=== PATIENT | female | born 1940 | race Caucasian/White ===

== ENCOUNTER 2016-05-13 07:16 | Emergency (ER) ==
[2016-05-13 07:33] VITALS: BP 149/94; TEMP 100.4; BMI 43.9
--- NOTE | 2016-05-13 07:38 | ED.PDOC ---
General ED Provider: Dr. FLAKITO SANTANA JR Chief Complaint: Sore Throat Stated Complaint: Sore throat x 3 days. Worse last noc. Feels "shooting pains" in throat. Hurts to swallow. Minor cough. Low grade fever. Pt states was unaware of temp. Has tried salt water gargles, cloraseptic throat spray, et Robitussin cough med.[ End ]100.4 75 20 93% 149/94 02/01[ End ] Time Seen by Physician: 07:43 Mode of Arrival: Walk-In Information Source: Patient Exam Limitations: No limitations Primary Care Provider: DUNG GRIFFIN Nursing and Triage Documentation Reviewed and Agree: No Review of Systems - Review Of Systems Constitutional: Reports: No symptoms Eyes: Reports: No symptoms Ears, Nose, Mouth, Throat: Reports: Throat pain Respiratory: Reports: No symptoms Cardiac: Reports: No symptoms GI: Reports: No symptoms : Reports: No symptoms Musculoskeletal: Reports: No symptoms Skin: Reports: No symptoms Neurological: Reports: No symptoms Endocrine: Reports: No symptoms Hematologic/Lymphatic: Reports: No symptoms All Other Systems: Other Past Medical History - Past Medical History Endocrine: Reports: Hypothyroid, Dyslipidemia Cardiovascular: Reports: CAD, Hypertension, DVT (bilat [id number] tubovarian excision 1970s again with hysterectomy) Respiratory: Reports: PE (1967) Hematological: Reports: None Gastrointestinal: Reports: None Genitourinary: Reports: None Neuro/Psych: Reports: None Musculoskeletal: Reports: Arthritis Cancer: Reports: None Last Menstrual Period: hysterectomy Other Pertinent Past Medical History: cataract surg, bilat eyes, Benign tumor removed from back - Surgical History General Surgical History: Reports: Hysterectomy, Appendectomy, CABG, Orthopedic ( bilat knee surg, ), Back Surgery (C-spine surg , Back surg,), Other (Sinus surg) - Family History Family History: Reports: Unknown - Social History Smoking Status: Never smoker Hx Substance Use: No Alcohol Screening: None Physical Exam - Physical Exam Appearance: Well-appearing, Thin Pain Distress: Moderate Eyes: SYDNI, EOMI, Conjunctiva clear ENT: Ears normal, Nose normal, Oropharynx normal Neck: Supple Respiratory: Airway patent, Breath sounds clear, Breath sounds equal, Respirations nonlabored Cardiovascular: RRR, Pulses normal, No rub, No murmur Neurological: Sensation intact, Motor intact, Reflexes intact, Cranial nerves intact, Alert, Oriented Psychiatric: Affect appropriate, Mood appropriate Critical Care Note - Critical Care Note Total Time (mins): 0 Course - Course Vital Signs: Temp Pulse Resp BP Pulse Ox 05/13/16 07:17 100.4 F H 75 20 149/94 H 93 L Departure - Departure Time of Disposition: 09:08 Disposition: HOME SELF-CARE Discharge Problem: Sore throat symptom Instructions: Pharyngitis (ED) Condition: Good Pt referred to PMD for follow-up: Yes Additional Instructions: Please call your Family Physician as soon as possible to schedule a follow-up appointment. Please follow-up with Dr. Griffin in 1-5 days. Tylenol Motrin Maalox and Chloraseptic as needed for pain Solumedrol was given in ER GI cocktail was given in ER push fluids Keflex only if strep is positive Prescriptions: Cephalexin [Keflex] 500 mg PO QID #40 capsule Allergies/Adverse Reactions: Allergies Iodinated Contrast Media - Oral and [Iodinated Contrast Media - IV Dye] Adverse Reaction (Unverified 09/25/13 13:51) iodine Adverse Reaction (Unverified 09/25/13 13:51) Penicillins Adverse Reaction (Unverified 09/25/13 13:51) povidone-iodine [From Betadine] Adverse Reaction (Unverified 09/25/13 13:51) soap [From Betadine] Adverse Reaction (Unverified 09/25/13 13:51) Home Medications: Ambulatory Orders Allopurinol 1 tab PO DAILY 09/25/13 Atorvastatin Calcium [Lipitor] 1 tab PO DAILY 09/25/13 Colchicine [Colcrys] 1 tab PO TID PRN 09/25/13 Furosemide [Lasix] 1 tab PO DAILY 09/25/13 Gabapentin 1 cap PO Q6-8H 09/25/13 Hydrocodone/Acetaminophen [Hydrocodon-Acetaminoph 7.5-325] 1 tab PO Q6-8H PRN Metoprolol Tartrate [Lopressor] 1 tab PO DAILY 09/25/13 Nitroglycerin [Nitrostat] 1 tab SL PRN PRN 09/25/13 Polyethylene Glycol 3350 [Miralax] 1 cap PO DAILY PRN 09/25/13 Potassium Chloride [K-Dur] 1 tab PO DAILY 09/25/13 Sennosides/Docusate Sodium [Bianca-Colace Tablet] 1 tab PO DAILY 09/25/13 Aspirin [Aspirin EC] 81 mg PO DAILYWM 05/13/16 Cephalexin [Keflex] 500 mg PO QID #40 capsule 05/13/16 Levothyroxine Sodium [Synthroid] 50 mcg PO QDAC 05/13/16 Loratadine 10 mg PO DAILY 05/13/16 Ondansetron HCl [Zofran Tab] 4 mg PO Q8H PRN 05/13/16
[2016-05-13] MEDS ORDERED: SOLU-MEDROL 125 MG IM STA (07:43)
[2016-05-13] MEDS ORDERED: GI COCKTAIL PO STA (07:48)
[2016-05-13 08:17] LABS: FLU INTERNAL QC INTERNAL QC VALID; RAPID FLU A NEGATIVE (NEGATIVE); RAPID FLU B NEGATIVE (NEGATIVE)
== END 2016-05-13 09:26 | disposition home or self-care (01) ==
LOC: ED 07:16
DX: J02.9 Acute pharyngitis, unspecified (principal); R50.9 Fever, unspecified; R05 Cough; Z79.899 Other long term (current) drug therapy
CPT/HCPCS: 87651; 87804; 87880; 96372; 99283

== ENCOUNTER 2016-06-04 10:59 | Outpatient (CLI) ==
--- NOTE | 2016-06-04 13:05 | US ---
EXAM: Left lower extremity venous doppler. HISTORY: Left leg pain and swelling. COMPARISON: None available. TECHNIQUE: Multiple grayscale and color doppler images were obtained. FINDINGS: There is normal flow, compressibility and augmentation of flow within the left common fem oral, greater saphenous, profunda, femoral, popliteal, posterior tibial, anterior tibial and peronea l veins. IMPRESSION: No evidence for left lower extremity deep vein thrombosis at the levels examined.
--- NOTE | 2016-06-04 13:11 | DI ---
Examination: Three radiographic images of the left lower extremity. Comparison: Ankle radiographs performed on the same day. Reason for study: Left leg pain and swelling. FINDINGS: No acute fracture or malalignment. Operative changes are seen after left total knee arth roplasty. No abnormal soft tissue calcifications are seen within the joint space. Impression: 1. No acute fracture or malalignment of the left tibia and fibula. 2. No obvious periprosthetic fracture or hardware complication in the left knee.
--- NOTE | 2016-06-04 13:13 | DI ---
EXAM: Left ankle. Three-view HISTORY: Left leg pain and swelling COMPARISON: None FINDINGS: No acute fracture or dislocation. Well marginated ossification near the medial malleolus , may be due to old trauma or ossification center. Ankle mortise symmetric. Small posterior and pl gina calcaneal spurs. Mild to moderate osteoarthritis of the midfoot. Soft tissue swelling suggest ed about the ankle. IMPERSSION: 1. No acute fracture or dislocation. 2. Mild moderate osteoarthritis midfoot. 3. Calcaneal spurs. 4. Soft tissue swelling suggested about the ankle.
== END 2016-06-04 11:00 | disposition home or self-care (01) ==
LOC: RAD 10:59
PROVIDERS: ATTEND Emergency Medicine
DX: M79.605 Pain in left leg (principal); M79.672 Pain in left foot; M79.89 Other specified soft tissue disorders

== ENCOUNTER 2016-06-10 07:48 | Outpatient (CLI) ==
--- NOTE | 2016-06-11 09:20 | MAMMO ---
EXAM: Digital screening mammogram HISTORY: Screening mammogram COMPARISON: Mammogram 02/14/2015 and 02/04/2015 and mammogram 06/12/2012 FINDINGS: Bilateral CC and MLO views of the breasts were performed digitally and demonstrate scatte red fibroglandular breast density (25 - 50%). Parenchyma is increased in density in the left lateral breast which is unchanged. Nodular breast parenchyma is stable when compared to 2015. Left breast biopsy clip is stable. Stable bilateral calcifications are present. There is no abnormal nodule or calcification. Axillary nodes are unchanged. There is no significant interval change. IMPRESSION: No new or suspicious nodule or calcification RECOMMENDATION: Annual screening mammogram BIRADS category II: Benign findings
== END 2016-06-10 07:49 | disposition home or self-care (01) ==
LOC: RAD 07:48
PROVIDERS: ATTEND Internal Medicine
DX: Z12.31 Encounter for screening mammogram for malignant neoplasm of breast (principal)

== ENCOUNTER 2016-11-12 11:28 | Inpatient (IN) | payer OTHER ==
[2016-11-12] MEDS ORDERED: MORPHINE 4 MG/ML SYRINGE IVP PRN (11:41)
[2016-11-12] MEDS ORDERED: NITROSTAT SL PRN ×2 (11:41→12:07)
[2016-11-12] MEDS ORDERED: VISTARIL INJ IM PRN (11:41)
[2016-11-12] MEDS ORDERED: TYLENOL PO PRN (11:41)
[2016-11-12] MEDS ORDERED: ATROPINE SULFATE PFS IVP PRN (11:41)
[2016-11-12 12:00] VITALS: BMI 44.9
[2016-11-12] MEDS ORDERED: MIRALAX PO PRN (12:07)
[2016-11-12] MEDS ORDERED: ZOFRAN TAB PO PRN ×2 (12:07→12:59)
--- NOTE | 2016-11-12 12:34 | DI ---
EXAM: Single frontal view of the chest HISTORY: Pneumonitis. COMPARISON: Chest x-ray 07/27 FINDINGS: Cardiomediastinal silhouette is unchanged with intact sternotomy wires. There is no pneum othorax or pleural effusion. There is no consolidation, nodule or mass. The osseous structures are unremarkable. Surgical clips are noted in the left upper chest. IMPRESSION: No acute cardiopulmonary process.
[2016-11-12 12:39] LABS: BASOPHILS % (AUTO) 0.4 % (0.0-3.0); EOSINOPHILS # (AUTO) 0.2 K/ul (0.0-0.7); EOSINOPHILS % (AUTO) 1.7 % (0.0-7.0); HEMATOCRIT 37.4 % (37.0-47.0); HEMOGLOBIN 12.7 g/dl (12.0-16.0); IMMATURE GRANULOCYTE % (AUTO) 1.6 % (0.0-5.0); LYMPHOCYTES # (AUTO) 1.8 K/uL (0.60-3.4); LYMPHOCYTES % (AUTO) 16.2 (10.0-50.0); MEAN CORPUSCULAR HEMOGLOBIN 30.5 pg (27.0-31.0); MEAN CORPUSCULAR VOLUME 89.7 fl (81.0-99.0); MONOCYTES # (AUTO) 0.5 K/uL (0.4-2.0); MONOCYTES % (AUTO) 4.5 (0-10); NEUTROPHILS # (AUTO) 8.3 K/ul (2.0-6.9); NEUTROPHILS % (AUTO) 75.6; PLATELET COUNT 188 10^3/uL (140-440); RED BLOOD COUNT 4.17 10^6/ul (4.20-5.40); WHITE BLOOD COUNT 10.92 K/ul (4.6-10.2)
[2016-11-12 13:19] LABS: ALANINE AMINOTRANSFERASE 20 U/L (12-78); ALBUMIN 3.9 g/dL (3.4-5.0); ALBUMIN/GLOBULIN RATIO 1.15; ALKALINE PHOSPHATASE 65 U/L (53-141); ANION GAP 20.8; ASPARTATE AMINO TRANSFERASE 15 U/L (15-37); BILIRUBIN,TOTAL 0.52 mg/dL (0.00-1.20); BLOOD UREA NITROGEN 17 mg/dL (7-18); BUN/CREATININE RATIO 21.79; CALCIUM 9.1 mg/dL (8.2-10.2); CARBON DIOXIDE 25 mmol/L (23-31); CHLORIDE 103 mmol/L (98-107); CREATINE KINASE 83 U/L; CREATININE 0.78 mg/dL (0.60-1.30); GLUCOSE 111 mg/dL (82-115); MYOGLOBIN 47 ng/ml; POTASSIUM 3.8 mmol/L (3.5-5.10); SODIUM 145 mmol/L (136-145); TOTAL PROTEIN 7.3 g/dL (5.8-8.1)
[2016-11-12] MEDS: XOPENEX 1.25 MG NEB SCH ×3 (13:37→23:16)
[2016-11-12] MEDS: LEVAQUIN 500 MG in PREMIX 100 ML D5W 1 BAG IV SCH (13:39)
[2016-11-12] MEDS: SOLU-CORTEF 250 MG IVP SCH ×3 (13:39→20:50)
[2016-11-12] MEDS: NEURONTIN PO SCH ×2 (13:40→20:51)
--- NOTE | 2016-11-12 14:53 | HP ---
DATE OF SERVICE: 11/12/16 REASON FOR HOSPITALIZATION/HISTORY OF PRESENT ILLNESS: Had 2 cc Decadron on Tuesday. Started Prednisone, Levaquin and ProAir. No fever. Tired and short of breath. Treated on 10/28/16 and 11/10/16 with Antibiotics and steroids. REVIEW OF SYSTEMS: CONSTITUTIONAL: No fever, Fatigue. HEENT: Sinus drainage, no sore throat. RESPIRATORY: Cough with yellowish sputum, no congestion. CARDIOVASCULAR: No atypical chest pain for coronary artery disease. No angina , CHF symptoms, palpitations. Shortness of breath. GASTROINTESTINAL: No melena or abdominal pain. No GERD. GENITOURINARY: No hematuria, no prostatism, no polyuria. PRINCIPAL CYBER ENGINEER: No blackout, no dizziness, no headache, no double vision. MUSCULOSKELETAL: Osteoarthritis pain, no joint swelling. ENDOCRINE: No weight loss, no weight gain. SKIN: Not dry, no rash. PSYCHIATRIC: Not anxious, no depression, no suicidal thoughts, no homicidal thoughts. SOCIAL HISTORY: Marital Status: . Alcohol Usage: No . Tobacco Usage: No . Family History: Father -64 year old cancer lung, Mother 64 years old ALS and one brother. MEDICAL/SURGICAL HISTORY: CABGx3 07/31 Right and left knee 2001 Back surgery 2003 Hysterectomy Cervical surgery Sinus surgery x3 Carpel tunnel Bilateral TKR CABG's Anemia Gout Asthma Hypertension Dyslipidemia CAD DJD Spine Fibromyalgia Neuropathy MEDICATIONS: Bianca-colace two tablet PO QAM K-Dur 20 meq PO daily Miralax 1 cap PO daily PRN Nitroglycerin 1 tablet Sublingual PRN Lopressor 25mg PO daily Hydrocodone/Acetaminophen 7.5-325 PO Q 6-7 hours PRN Gabapentin 600mg four capsules PO bedtime Lasix 40mg PO daily Lipitor 40mg PO 1600 Allopurinol 100mg PO daily Loratadine 10mg PO 1600 Aspirin 81mg PO 1600 Zofran 4mg PO Q 8 hours PRN Synthroid 50mcg PO QDAC ALLERGIES: Iodine Penicillins Cymbalta PHYSICAL EXAMINATION: V/S: Temperature 97.7, blood pressure 130/78, pulse 68 and ox sat 93%. GENERAL APPEARANCE: Oriented times three. HEENT: Normal. NECK: No JVP, no bruits. RESPIRATORY: Decreased breath sounds, bilateral wheezing. CARDIOVASCULAR: S1, S2, no S3, no murmurs. No cyanosis, clubbing. No ascites. GI/ABDOMEN: No tenderness. Bowel sounds are active. EXTREMITIES: Trace edema, pulses +1, equal. PRINCIPAL CYBER ENGINEER: Deep tendon reflexes, sensory, motor and gait all normal. RECTAL: Colonoscopy Dr. Last 2013 EGD. /PELVIC: Dr. Briscoe/ 06/10/16 Dr. Goldstein . ASSESSMENT: 1. Acute bronchitis/pneumonitis 2. Anemia 3. History of gout 4. Neuropathy 5. Fibromyalgia 6. Bilateral TKR 7. CAD, 2007 CABG 8. Hypertension/LVH 9. Severe DJD Spine 10. Status post back surgery 2002 PLAN: 1. Admit regular 2. Diet as tolerated 3. Telemetry 4. EKG/ABG 5. BNP/ Oxygen 2 liters cannula 6. X-ray Chest today 7. CBC, CMP today and daily AM 8. TSH/ Urinalysis 9. Solu-Cortef 125mg IV PB Q 8 hours and one dose now. 10. IV Levaquin 500mg today and QAM 11. Sputum for culture 12. Blood culture x2 13. NEBS Xopenex four times a day 14. Phenergan with codeine two teaspoons PO four times a day PRN 15. Continue all home medications. TIME SPENT: More than 70 minutes. MTDD
[2016-11-12] MEDS ORDERED: NON-FORMULARY MEDICATION (Atorvastatin Calcium [Lipitor] 40 MG) PO SCH ×22 (16:00)
[2016-11-12] MEDS: LIPITOR PO SCH (16:10)
[2016-11-12] MEDS: ASPIRIN EC PO SCH (16:10)
[2016-11-12] MEDS: CLARITIN PO SCH (16:10)
[2016-11-12 19:08] LABS: BILIRUBIN,URINE Negative (NEGATIVE); KETONES,URINE Negative (NEGATIVE); LEUKOCYTE ESTERASE ,URINE Negative (NEGATIVE); NITRITE,URINE Negative (NEGATIVE); PH,URINE 8.5 (5-9); PROTEIN,URINE Negative (NEGATIVE); URINE, BLOOD Negative (NEGATIVE)
[2016-11-12 19:09] LABS: ADD URINE MICROSCOPIC NO
[2016-11-12 19:52] LABS: CREATINE KINASE 85 U/L; MYOGLOBIN 33 ng/ml
[2016-11-12] MEDS ORDERED: GABAPENTIN PO SCH (21:00)
[2016-11-12] MEDS ORDERED: LIDOCAINE 1% 20 ML MDV ONE (21:24)
--- NOTE | 2016-11-12 22:41 | ED.PDOC ---
Procedures - IV/Art Line Insertion Location: Rt wrist Invasive Line/IV Catheter Gauge: 22 Number of Attempts: 1 Blood Return Positive: Yes Invasive Line/IV Flushes Without Difficulty: Yes Conscious Sedation - Pre-op Assessment Weight: 245 lb 9 oz Surgical History: Appy, hysterectomy, PE, DVT bilat legs, C-spine surg, bilat knee surg, Sinus surg, Back surg, CABG, cataract surg, bilat eyes, Benign tumor removed from back - Medical History Past Medical History: Hypertension, Thyroid, High Lipids, Arthritis, CAD
[2016-11-13] MEDS: XOPENEX 1.25 MG NEB SCH ×4 (05:22→23:19)
[2016-11-13] MEDS: LASIX TAB PO SCH (05:38)
[2016-11-13] MEDS: SOLU-CORTEF 250 MG IVP SCH ×2 (05:39→13:06)
[2016-11-13] MEDS: SYNTHROID PO SCH (05:41)
[2016-11-13 06:51] LABS: BASOPHILS % (AUTO) 0.3 % (0.0-3.0); EOSINOPHILS % (AUTO) 0.2 % (0.0-7.0); HEMATOCRIT 38.4 % (37.0-47.0); HEMOGLOBIN 12.7 g/dl (12.0-16.0); IMMATURE GRANULOCYTE % (AUTO) 1.3 % (0.0-5.0); LYMPHOCYTES # (AUTO) 1.8 K/uL (0.60-3.4); MEAN CORPUSCULAR HGB CONC 33.1 (31.8-35.4); MEAN CORPUSCULAR VOLUME 90.8 fl (81.0-99.0); MONOCYTES # (AUTO) 0.6 K/uL (0.4-2.0); MONOCYTES % (AUTO) 4.7 (0-10); NEUTROPHILS # (AUTO) 9.3 K/ul (2.0-6.9); NEUTROPHILS % (AUTO) 78.5; PLATELET COUNT 164 10^3/uL (140-440); RED BLOOD COUNT 4.23 10^6/ul (4.20-5.40); WHITE BLOOD COUNT 11.81 K/ul (4.6-10.2)
[2016-11-13 07:11] LABS: ALBUMIN 3.9 g/dL (3.4-5.0); ALBUMIN/GLOBULIN RATIO 1.15; ANION GAP 20.5; BILIRUBIN,TOTAL 0.46 mg/dL (0.00-1.20); BUN/CREATININE RATIO 21.62; CALCIUM 8.9 mg/dL (8.2-10.2); CREATININE 0.74 mg/dL (0.60-1.30); POTASSIUM 3.5 mmol/L (3.5-5.10); TOTAL PROTEIN 7.3 g/dL (5.8-8.1)
[2016-11-13] MEDS ORDERED: ASPIRIN EC PO SCH (08:00)
[2016-11-13] MEDS: K-DUR PO SCH (08:45)
[2016-11-13] MEDS: NEURONTIN PO SCH ×2 (08:45→20:44)
[2016-11-13] MEDS: COLACE PO SCH (08:45)
[2016-11-13] MEDS: SENNA PO SCH (08:46)
[2016-11-13] MEDS: LOPRESSOR PO SCH (08:46)
[2016-11-13] MEDS: ZYLOPRIM PO SCH (08:46)
[2016-11-13] MEDS ORDERED: DOCUSATE SODIUM PO SCH (09:00)
[2016-11-13] MEDS ORDERED: SENNOSIDES PO SCH (09:00)
[2016-11-13] MEDS: NORCO 7.5-325 PO PRN ×3 (09:17→20:45)
[2016-11-13] MEDS: LEVAQUIN 500 MG in PREMIX 100 ML D5W 1 BAG IV SCH (09:18)
[2016-11-13] MEDS: LIPITOR PO SCH (15:25)
[2016-11-13] MEDS: ASPIRIN EC PO SCH (15:25)
[2016-11-13] MEDS: CLARITIN PO SCH (15:25)
--- NOTE | 2016-11-13 19:22 | ED.PDOC ---
Procedures - IV/Art Line Insertion Location: called in, nurse stated order had changed and will not need IV Conscious Sedation - Pre-op Assessment Weight: 245 lb 9 oz Surgical History: Appy, hysterectomy, PE, DVT bilat legs, C-spine surg, bilat knee surg, Sinus surg, Back surg, CABG, cataract surg, bilat eyes, Benign tumor removed from back - Medical History Past Medical History: Hypertension, Thyroid, High Lipids, Arthritis, CAD
[2016-11-13] MEDS: PREDNISONE PO SCH (19:35)
[2016-11-13] MEDS: PHENERGAN WITH CODEINE 6.25/10 MG/5 ML PO PRN (23:27)
[2016-11-14 05:01] LABS: BASOPHILS % (AUTO) 0.4 % (0.0-3.0); EOSINOPHILS # (AUTO) 0.1 K/ul (0.0-0.7); EOSINOPHILS % (AUTO) 0.5 % (0.0-7.0); HEMATOCRIT 36.3 % (37.0-47.0); IMMATURE GRANULOCYTE % (AUTO) 1.5 % (0.0-5.0); LYMPHOCYTES # (AUTO) 1.7 K/uL (0.60-3.4); LYMPHOCYTES % (AUTO) 16.2 (10.0-50.0); MEAN CORPUSCULAR HEMOGLOBIN 29.9 pg (27.0-31.0); MEAN CORPUSCULAR HGB CONC 33.1 (31.8-35.4); MEAN CORPUSCULAR VOLUME 90.5 fl (81.0-99.0); MONOCYTES # (AUTO) 0.7 K/uL (0.4-2.0); MONOCYTES % (AUTO) 6.6 (0-10); NEUTROPHILS # (AUTO) 8.1 K/ul (2.0-6.9); NEUTROPHILS % (AUTO) 74.8; PLATELET COUNT 146 10^3/uL (140-440); RED BLOOD COUNT 4.01 10^6/ul (4.20-5.40); WHITE BLOOD COUNT 10.76 K/ul (4.6-10.2)
[2016-11-14] MEDS: XOPENEX 1.25 MG NEB SCH ×4 (05:04→23:18)
[2016-11-14 05:23] LABS: ALBUMIN 3.5 g/dL (3.4-5.0); ALBUMIN/GLOBULIN RATIO 1.13; ANION GAP 18.7; BILIRUBIN,TOTAL 0.29 mg/dL (0.00-1.20); BUN/CREATININE RATIO 22.85; CALCIUM 8.8 mg/dL (8.2-10.2); CREATININE 0.7 mg/dL (0.60-1.30); POTASSIUM 3.7 mmol/L (3.5-5.10); TOTAL PROTEIN 6.6 g/dL (5.8-8.1)
[2016-11-14] MEDS: SYNTHROID PO SCH (05:33)
[2016-11-14] MEDS: LASIX TAB PO SCH (05:33)
[2016-11-14] MEDS: NORCO 7.5-325 PO PRN ×2 (06:06→15:40)
[2016-11-14] MEDS: ZYLOPRIM PO SCH (08:34)
[2016-11-14] MEDS: LEVAQUIN PO SCH (08:34)
[2016-11-14] MEDS: NEURONTIN PO SCH ×2 (08:34→20:26)
[2016-11-14] MEDS: K-DUR PO SCH (08:34)
[2016-11-14] MEDS: PREDNISONE PO SCH ×2 (08:34→17:01)
[2016-11-14] MEDS: COLACE PO SCH (08:35)
[2016-11-14] MEDS: SENNA PO SCH (08:35)
[2016-11-14] MEDS: LOPRESSOR PO SCH (08:35)
[2016-11-14] MEDS: LIPITOR PO SCH (15:48)
[2016-11-14] MEDS: CLARITIN PO SCH (15:48)
[2016-11-14] MEDS: ASPIRIN EC PO SCH (15:48)
[2016-11-15] MEDS: PHENERGAN WITH CODEINE 6.25/10 MG/5 ML PO PRN ×2 (00:02→07:37)
[2016-11-15] MEDS: NORCO 7.5-325 PO PRN ×2 (00:02→07:37)
[2016-11-15 05:31] VITALS: BP 154/85; TEMP 97.4
[2016-11-15] MEDS: XOPENEX 1.25 MG NEB SCH ×2 (05:38→11:15)
[2016-11-15] MEDS: LEVAQUIN PO SCH (05:40)
[2016-11-15] MEDS: SYNTHROID PO SCH (05:40)
[2016-11-15] MEDS: LASIX TAB PO SCH (05:40)
[2016-11-15 05:51] LABS: BASOPHILS # (AUTO) 0.1 K/uL (0-0.2); BASOPHILS % (AUTO) 0.7 % (0.0-3.0); EOSINOPHILS # (AUTO) 0.3 K/ul (0.0-0.7); EOSINOPHILS % (AUTO) 2.6 % (0.0-7.0); HEMATOCRIT 38.4 % (37.0-47.0); HEMOGLOBIN 12.4 g/dl (12.0-16.0); IMMATURE GRANULOCYTE % (AUTO) 1.8 % (0.0-5.0); LYMPHOCYTES # (AUTO) 2.3 K/uL (0.60-3.4); LYMPHOCYTES % (AUTO) 22.7 (10.0-50.0); MEAN CORPUSCULAR HEMOGLOBIN 29.5 pg (27.0-31.0); MEAN CORPUSCULAR HGB CONC 32.3 (31.8-35.4); MEAN CORPUSCULAR VOLUME 91.4 fl (81.0-99.0); MONOCYTES # (AUTO) 0.7 K/uL (0.4-2.0); NEUTROPHILS # (AUTO) 6.6 K/ul (2.0-6.9); NEUTROPHILS % (AUTO) 65.2; PLATELET COUNT 159 10^3/uL (140-440); WHITE BLOOD COUNT 10.15 K/ul (4.6-10.2)
[2016-11-15 06:13] LABS: ALBUMIN 3.5 g/dL (3.4-5.0); ALBUMIN/GLOBULIN RATIO 1.21; ANION GAP 17.9; BILIRUBIN,TOTAL 0.44 mg/dL (0.00-1.20); BUN/CREATININE RATIO 27.94; CALCIUM 8.9 mg/dL (8.2-10.2); CREATININE 0.68 mg/dL (0.60-1.30); POTASSIUM 3.9 mmol/L (3.5-5.10); TOTAL PROTEIN 6.4 g/dL (5.8-8.1)
[2016-11-15] MEDS: SENNA PO SCH (08:57)
[2016-11-15] MEDS: COLACE PO SCH (08:57)
[2016-11-15] MEDS: PREDNISONE PO SCH (08:57)
[2016-11-15] MEDS: NEURONTIN PO SCH (08:57)
[2016-11-15] MEDS: ZYLOPRIM PO SCH (08:57)
[2016-11-15] MEDS: K-DUR PO SCH (08:58)
[2016-11-15] MEDS: LOPRESSOR PO SCH (08:58)
[2016-11-15] MEDS ORDERED: MUCINEX PO SCH (09:30)
--- NOTE | 2016-11-15 09:40 | PCM.PROG ---
Attending Provider: ATTENDING PROVIDER: Dr. DUNG GRIFFIN DATE OF SERVICE: 11/15/16 SUBJECTIVE: This 76 year old WHITE/ F was hospitalized 11/12/16. The patient was seen with Nurse Practitioner, Erin. The patient is up and about ready to go home. She is feeling better. REVIEW OF SYSTEMS: CONSTITUTIONAL: No night sweats. No fatigue, malaise, lethargy. No fever or chills. HEENT: Eyes: No visual changes. No eye pain. No eye discharge. ENT: No runny nose. No epistaxis. No sinus pain. No odynophagia. No congestion. RESPIRATORY: Cough, no congestion. No hemoptysis. CARDIOVASCULAR: No angina symptoms. No CHF symptoms. No atypical chest pain for CAD. No palpitations. No shortness of breath. GASTROINTESTINAL: No abdominal pain. No nausea or vomiting. No diarrhea or constipation. No hematemesis. No hematochezia. GENITOURINARY: No urgency. No frequency. No dysuria. No hematuria. No obstructive symptoms. No discharge. No pain. No significant abnormal bleeding. MUSCULOSKELETAL: No musculoskeletal pain; no joint swelling. NEUROLOGICAL: Awake, alert, oriented to time, place and person. No headache. No neck pain. No syncope. No seizures. No dizziness. PSYCHIATRIC: Not anxious. No depression. No suicidal thoughts. No homicidal thoughts. SKIN: No rash. No lesions. No wounds. ENDOCRINE: No unexplained weight loss. No weight gain. HEMATOLOGIC/LYMPHATIC: No anemia. No purpura. No petechiae. No prolonged or excessive bleeding. No palpable lymph nodes. PHYSICAL EXAMINATION: GENERAL: The patient is awake, alert and oriented, up and about in no distress. VITAL SIGNS: Temperature 97.4 F, Pulse 77, Respiratory Rate 16, BP 154/85, Pulse Ox 99% HEENT: Head normocephalic, atraumatic. Eyes: Extraocular muscles are intact. Pupils are equal, round and reactive to light and accommodation. Ears: No lesions. Nose appeared normal. Throat: No exudate or erythema. NECK: Supple. No JVD, no carotid bruit. No lymphadenopathy or thyromegaly. LUNGS: Bilateral bronchi no wheezing. Clear to auscultation. Percussion note normal. Chest symmetrical. HEART: S1, S2, no S3. No murmurs. No cyanosis or clubbing. No ascites. Pulses: Dorsalis pedis and posterior tibial pulses +1 to +2 both sides. ABDOMEN: Soft. Non-tender. Bowel sounds active. No CVA tenderness. No mass felt. EXTREMITIES: No edema. Full range of motion of all extremities, equal. NEUROLOGIC: No focal deficit. Cranial nerves II through XII are grossly intact. No headache, no double vision or headache. SKIN: Not dry. Intact. Turgor-normal. LYMPHATIC: No palpable lymph nodes/no lymphedema. MUSCULOSKELETAL: Normal joints with no swelling. Muscle tone is normal. LAB REVIEW: 11/15/16 05:30 11/15/16 05:30 11/15/16 05:30: WBC 10.15, RBC 4.20, Hgb 12.4, Hct 38.4, MCV 91.4, MCH 29.5, MCHC 32.3, RDW Coeff of Tala 14.6, Plt Count 159, Immature Gran % (Auto) 1.8, Neut % (Auto) 65.2, Lymph % (Auto) 22.7, [place] % (Auto) 7.0, Eos % (Auto) 2.6, Baso % (Auto) 0.7, Immature Gran # (Auto) 0.2, Neut # 6.6, Lymph # 2.3, [place] # 0.7, Eos # 0.3, Baso # 0.1, Sodium 144, Potassium 3.9, Chloride 104, Carbon Dioxide 26, Anion Gap 17.9, BUN 19 H, Creatinine 0.68, Estimated GFR (MDRD) 85.00, BUN/Creatinine Ratio 27.94, Glucose 92, Calcium 8.9, Total Bilirubin 0.44 , AST 15, ALT 20, Alkaline Phosphatase 56, Total Protein 6.4, Albumin 3.5, Globulin 2.9, Albumin/Globulin Ratio 1.21 ASSESSMENT: Please see below. 1. Acute bronchitis/Pneumonitis PLAN: 1. Discharge home today 2. Levaquin 500mg x 3 days 3. Prednisone 10mg twice a day for five days 4. Will followup next week 5. Proair inhaler three times a day Plan and coordination of the patient's care discussed in the presence of Sea Foam Kiss Maker and nurse. SCRIBED BY: Jenni WHITE scribed while in presence of service performed by Dr. DUNG GRIFFIN/ERIN HO APRN on 11/15/16 ([id number])
--- NOTE | 2016-11-15 13:31 | CM.DICTOOL ---
ADMISSION: 11/12/16 11:28 DISCHARGE: 11/15/16 DATE OF SERVICE: 11/15/16 FINAL DIAGNOSIS ACUTE BRONCHITIS/PNEUMONITIS CAD ANEMIA GOUTY ARTHRITIS ASTHMA HYPERTENSION DYSLIPIDEMIA DJD SPINE FIBROMYALGIA NEUROPAHTY CABG, 3 VESSEL, 07/2007 RIGHT AND LEFT KNEE ARTHROPLASTY, 2000 BACK SURGERY, 2002 HYSTERECTOMY CERVICAL SURGERY SINUS SURGERIES X3 CARPAL TUNNEL RELEASE LAST VITALS Temp Pulse Resp BP Pulse Ox 97.4 F L 77 16 154/85 H 99 11/15/16 05:29 11/15/16 05:29 11/15/16 07:50 11/15/16 05:29 11/15/16 05:36 ACTIVE MEDICATIONS Acetaminophen/Hydrocodone Bitart ([place] 7.5-325) 1 tab PO Q6-8H PRN PRN Reason: pain Last Admin: 11/15/16 07:37 Dose: 1 tab Allopurinol (Zyloprim) 100 mg PO DAILY [facility] Last Admin: 11/15/16 08:57 Dose: 100 mg Aspirin (Aspirin Ec) 81 mg PO 1600 [facility] Last Admin: 11/14/16 15:48 Dose: 81 mg Atorvastatin Calcium (Lipitor) 40 mg PO 1600 [facility] Last Admin: 11/14/16 15:48 Dose: 40 mg Furosemide (Lasix Tab) 40 mg PO QDAC [facility] Last Admin: 11/15/16 05:40 Dose: 40 mg Gabapentin (Neurontin) 1,200 mg PO BID [facility] Last Admin: 11/15/16 08:57 Dose: 1,200 mg Guaifenesin (Mucinex) 600 mg PO Q12HR NASRNI X3 DAYS (NEW PRESCRIPTION) Last Admin: 11/15/16 09:46 Dose: 600 mg Levofloxacin (Levaquin) 500 mg PO QDAC SCHX 3 DAYS (NEW PRESCRIPTION) Last Admin: 11/15/16 05:40 Dose: 500 mg Levothyroxine Sodium (Synthroid) 50 mcg PO QDAC [facility] Last Admin: 11/15/16 05:40 Dose: 50 mcg Loratadine (Claritin) 10 mg PO 1600 NASRIN Last Admin: 11/14/16 15:48 Dose: 10 mg Metoprolol Tartrate (Lopressor) 25 mg PO DAILY [facility] Last Admin: 11/15/16 08:58 Dose: 25 mg Nitroglycerin (Nitrostat) 0.4 mg SL Q5MIN X 3 DOSES PRN PRN Reason: Chest Pain Ondansetron HCl (Zofran Tab) 4 mg PO DAILY PRN PRN Reason: NAUSEA/VOMITTING Last Admin: 11/14/16 15:35 Dose: 4 mg Polyethylene Glycol (Miralax) 17 gm PO DAILY PRN PRN Reason: Constipation Potassium Chloride (K-Dur) 20 meq PO DAILY [facility] Last Admin: 11/15/16 08:58 Dose: 20 meq Prednisone (Prednisone) 10 mg PO BIDWMX 5 DAYS [facility] (NEW PRESCRIPTION) Last Admin: 11/15/16 08:57 Dose: 10 mg Sennosides (Senna) 17.2 mg PO DAILY [facility] Last Admin: 11/15/16 08:57 Dose: 17.2 mg ALLERGIES Iodinated Contrast- Oral and IV Dye [Iodinated Contrast Media - IV Dye] Adverse Reaction (Unverified 09/25/13 13:51) iodine Adverse Reaction (Unverified 09/25/13 13:51) Penicillins Adverse Reaction (Unverified 09/25/13 13:51) povidone-iodine [From Betadine] Adverse Reaction (Unverified 09/25/13 13:51) soap [From Betadine] Adverse Reaction (Unverified 09/25/13 13:51) NEW PRESCRIPTIONS: PREDNISONE 10 GM, TAKE ONE TABLET BY MOUTH TWICE DAILY WITH FOOD FOR 5 DAYS LEVAQUIN 500 MG, TAKE ONE TABLET BY MOUTH DAILY FOR 3 DAYS MUCINEX 600 MG, TAKE ONE TABLET BY MOUTH EVERY 12 HOURS FOR 3 DAYS SMOKING: NONSMOKER DISEASE SPECIFIC EDUCATION: ACUTE BRONCHITIS/PNEUMONITIS HOME MEDICATIONS NEW PRESCRIPTIONS STEROID USE INCLUDING POSSIBLE ADVERSE REACTIONS WITH GROUP HOME USE FOLLOW UP LAB REVIEW: 11/15/16 05:30 11/15/16 05:30 11/15/16 05:30: WBC 10.15, RBC 4.20, Hgb 12.4, Hct 38.4, MCV 91.4, MCH 29.5, MCHC 32.3, RDW Coeff of Tala 14.6, Plt Count 159, Immature Gran % (Auto) 1.8, Neut % (Auto) 65.2, Lymph % (Auto) 22.7, [place] % (Auto) 7.0, Eos % (Auto) 2.6, Baso % (Auto) 0.7, Immature Gran # (Auto) 0.2, Neut # 6.6, Lymph # 2.3, [place] # 0.7, Eos # 0.3, Baso # 0.1, Sodium 144, Potassium 3.9, Chloride 104, Carbon Dioxide 26, Anion Gap 17.9, BUN 19 H, Creatinine 0.68, Estimated GFR (MDRD) 85.00, BUN/Creatinine Ratio 27.94, Glucose 92, Calcium 8.9, Total Bilirubin 0.44 , AST 15, ALT 20, Alkaline Phosphatase 56, Total Protein 6.4, Albumin 3.5, Globulin 2.9, Albumin/Globulin Ratio 1.21 PLAN: DISCHARGE HOME TODAY RETURN TO SEE DR. GRIFFIN IN ONE WEEK. PLEASE PHONE HIS OFFICE TO SCHEDULE YOUR FOLLOW UP APPOINTMENT ([phone]) RETURN TO [facility] FOR YOUR PULMONARY FUNCTION TEST ON 11/22/16 AT 9 A.M. RESUME YOUR HOME MEDICATIONS PER LIST PROVIDED BY THE NURSING STAFF USE YOUR PROAIR INHALER AT LEAST THREE TIMES DAILY FOR THE NEXT FEW DAYS NEW PRESCRIPTIONS: PREDNISONE 10 GM, TAKE ONE TABLET BY MOUTH TWICE DAILY WITH FOOD FOR 5 DAYS LEVAQUIN 500 MG, TAKE ONE TABLET BY MOUTH DAILY FOR 3 DAYS MUCINEX 600 MG, TAKE ONE TABLET BY MOUTH EVERY 12 HOURS FOR 3 DAYS ACTIVITY: GET PLENTY OF REST AT HOME. GRADUALLY INCREASE YOUR ACTIVITY LEVEL ACCORDING TO YOUR TOLERATION DIET: HEALTHY HEART SUMMARY: THE PATIENT IS ALERT AND ORIENTED X3. SHE CURRENTLY RESIDES AT HOME ALONE. SHE IS INDEPENDENT WITH ADL'S AND DOES NOT REQUIRE DME, HOME HEALTH OR HOMEMAKING SERVICES. SHE DESIRES TO RETURN TO HER HOME AT DISCHARGE. HER SKIN TURGOR IS INTACT AND WITHOUT DECUBITUS ULCERS AT DISCHARGE. SHE CONTINUES TO HAVE MILD WHEEZING AND RHONCHI IN HER LUNGS BILATERALLY. HOWEVER, SHE IS AFEBRILE AND WHITE COUNTS ARE NOT ELEVATED. BLOOD C/S DID NOT GROW ANY ORGANISMS AND SPUTUM GREW ONLY NORMAL KARI. SHE HAS SHOWN A GOOD AMOUNT OF CLINICAL IMPROVEMENT SINCE HER ADMISSION. SHE IS AWARE AND AGREEABLE FOR TODAY' S DISCHARGE PLANS. CURRENT CODE STATUS: FULL CODE RUFINA BERNABE APRN DUNG GRIFFIN M.D.
--- NOTE | 2016-11-16 09:03 | PN ---
11/12/16: Level 5 11/13/16: Intermediate 11/14/16: Brief 11/15/16: D as in discharge MTDD
--- NOTE | 2016-11-16 09:03 | PN ---
DATE OF SERVICE: 11/15/16 SUBJECTIVE: The patient was seen with Nurse Practitioner. The patient is a 76 year old white female was hospitalized with acute bronchitis/pneumonitis. The patient has improved a lot and her condition has improved. PHYSICAL EXAMINATION: VITAL SIGNS: Temperature 97.4, pulse 77, respiratory rate 21, blood pressure 154 /85 and pulse ox 99% HEENT: Head normocephalic, atraumatic. Eyes: Extraocular muscles are intact. Pupils are equal, round and reactive to light and accommodation. Ears: No lesions. Nose appeared normal. Throat: No exudate or erythema. NECK: Supple. No JVD, no carotid bruit. No lymphadenopathy or thyromegaly. LUNGS: Clear to auscultation. Percussion note normal. Chest symmetrical. HEART: S1, S2, no S3. No murmurs. No cyanosis or clubbing. No ascites. Pulses: Dorsalis pedis and posterior tibial pulses +1 to +2 both sides. ABDOMEN: Soft. Nontender. Bowel sounds active. No CVA tenderness. No mass felt. EXTREMITIES: No edema. Full range of motion of all extremities, equal. NEUROLOGIC: No focal deficit. Cranial nerves II through XII are grossly intact. No headache, no double vision or headache. SKIN: Not dry. Intact. Turgor - normal. LYMPHATIC: No palpable lymph nodes/no lymphedema. MUSCULOSKELETAL: Normal joints with no swelling. Muscle tone is normal. ASSESSMENT: 1. Pneumonitis/Bronchitis, Resolving PLAN: 1. Discharge patient home with antibiotics and steroids. CONDITION: Stable TIME SPENT: More than 30 minutes. Plan and coordination of the patient's care discussed in the presence of nurse. SCARLET
--- NOTE | 2016-11-16 11:21 | PN ---
DATE OF SERVICE: 11/13/16 SUBJECTIVE: The patient is a 76 white female hospitalized with acute bronchitis/ pneumonitis. The patient's condition has improved and she is still weak but coughing much less. Her appetite has improved. The patient was treated with antibiotics for past two to three weeks and steroids. Now she is being treated with NEBS treatment, steroids, IV antibiotics. REVIEW OF SYSTEMS: CONSTITUTIONAL: No night sweats. No fatigue, malaise, lethargy. No fever or chills. HEENT: Eyes: No visual changes. No eye pain. No eye discharge. ENT: No runny nose. No epistaxis. No sinus pain. No sore throat. No odynophagia. No congestion. RESPIRATORY: Mild cough, no congestion. No hemoptysis. CARDIOVASCULAR: No angina symptoms. No CHF symptoms. No atypical chest pain for CAD. No palpitations. Mild shortness of breath as usual with exertion. GASTROINTESTINAL: No abdominal pain. No nausea or vomiting. No diarrhea or constipation. No hematemesis. No hematochezia. Appetite has improved. GENITOURINARY: No urgency. No frequency. No dysuria. No hematuria. No obstructive symptoms. No discharge. No pain. No significant abnormal bleeding. MUSCULOSKELETAL: No musculoskeletal pain; no joint swelling. NEUROLOGICAL: No headache. No neck pain. No syncope. No seizures. No dizziness. PSYCHIATRIC: Not anxious. No depression. No suicidal thoughts. No homicidal thoughts. SKIN: No rash. No lesions. No wounds. ENDOCRINE: No unexplained weight loss. No weight gain. HEMATOLOGIC/LYMPHATIC: No anemia. No purpura. No petechiae. No prolonged or excessive bleeding. No palpable lymph nodes. PHYSICAL EXAMINATION: GENERAL: The patient is oriented to time place and person. VITAL SIGNS: Temperature 97.6, pulse 90, respiratory rate 16, blood pressure 150/80 and pulse ox 94%. HEENT: Head normocephalic, atraumatic. Eyes: Extraocular muscles are intact. Pupils are equal, round and reactive to light and accommodation. Ears: No lesions. Nose appeared normal. Throat: No exudate or erythema. NECK: Supple. No JVD, no carotid bruit. No lymphadenopathy or thyromegaly. LUNGS: Decreased breath sounds but clear to auscultation. Percussion note normal. Chest symmetrical. HEART: S1, S2, no S3. No murmurs. No cyanosis or clubbing. No ascites. Pulses: Dorsalis pedis and posterior tibial pulses +1 to +2 both sides. ABDOMEN: Soft. Nontender. Bowel sounds active. No CVA tenderness. No mass felt. EXTREMITIES: No edema. Full range of motion of all extremities, equal. NEUROLOGIC: No focal deficit. Cranial nerves II through XII are grossly intact. No headache, no double vision or headache. SKIN: Not dry. Intact. Turgor - normal. LYMPHATIC: No palpable lymph nodes/no lymphedema. MUSCULOSKELETAL: Normal joints with no swelling. Muscle tone is normal. LABS: hgb 12.7, hct 37, WBC 10,900 normal differential. ASSESSMENT: 1. Acute bronchitis/pneumonitis seems to be resolving 2. Bronchial asthma 3. Generalized osteoarthritis 4. DJD spine 5. Hypothyroidism 6. Coronary artery disease 7. Dyslipidemia PLAN: 1. Continue IV antibiotics 2. Continuer Steroids 3. Discontinue IV fluids 4. Continue NEBS treatment CONDITION: Stable TIME SPENT: More than 30 minutes. Plan and coordination of the patient's care discussed in the presence of nurse. SCARLET
--- NOTE | 2016-11-16 14:25 | PN ---
DATE OF SERVICE: 11/14/16 SUBJECTIVE: The patient is a 76 year old white female hospitalized with acute bronchitis/ pneumonitis. The patient is feeling better and her appetite has improved. REVIEW OF SYSTEMS: CONSTITUTIONAL: No night sweats. No fatigue, malaise, lethargy. No fever or chills. HEENT: Eyes: No visual changes. No eye pain. No eye discharge. ENT: No runny nose. No epistaxis. No sinus pain. No sore throat. No odynophagia. No congestion. RESPIRATORY: Mild cough, no congestion. No hemoptysis. CARDIOVASCULAR: No angina symptoms. No CHF symptoms. No atypical chest pain for CAD. No palpitations. No shortness of breath. No PND. No Orthopnea. GASTROINTESTINAL: No abdominal pain. No nausea or vomiting. No diarrhea or constipation. No hematemesis. No hematochezia. GENITOURINARY: No urgency. No frequency. No dysuria. No hematuria. No obstructive symptoms. No discharge. No pain. No significant abnormal bleeding. MUSCULOSKELETAL: No musculoskeletal pain; no joint swelling. NEUROLOGICAL: No headache. No neck pain. No syncope. No seizures. No dizziness. PSYCHIATRIC: Not anxious. No depression. No suicidal thoughts. No homicidal thoughts. SKIN: No rash. No lesions. No wounds. ENDOCRINE: No unexplained weight loss. No weight gain. HEMATOLOGIC/LYMPHATIC: No anemia. No purpura. No petechiae. No prolonged or excessive bleeding. No palpable lymph nodes. PHYSICAL EXAMINATION: GENERAL: The patient is oriented to time,place and person. VITAL SIGNS: Temperature 97.8, pulse 68, respiratory rate 20, blood pressure 130/84 and pulse ox 93%. HEENT: Head normocephalic, atraumatic. Eyes: Extraocular muscles are intact. Pupils are equal, round and reactive to light and accommodation. Ears: No lesions. Nose appeared normal. Throat: No exudate or erythema. NECK: Supple. No JVD, no carotid bruit. No lymphadenopathy or thyromegaly. LUNGS: Decreased breath sounds but clear to auscultation. Percussion note normal. Chest symmetrical. HEART: S1, S2, no S3. No murmurs. No cyanosis or clubbing. No ascites. Pulses: Dorsalis pedis and posterior tibial pulses +1 to +2 both sides. ABDOMEN: Soft. Nontender. Bowel sounds active. No CVA tenderness. No mass felt. EXTREMITIES: No edema. Full range of motion of all extremities, equal. NEUROLOGIC: No focal deficit. Cranial nerves II through XII are grossly intact. No headache, no double vision or headache. SKIN: Not dry. Intact. Turgor - normal. LYMPHATIC: No palpable lymph nodes/no lymphedema. MUSCULOSKELETAL: Normal joints with no swelling. Muscle tone is normal. LABS: hgb 12, hct 36, WBC 10,000 normal differential, creatinine 0.7, BUN 16, potassium 3.7 and TSH normal ASSESSMENT: 1. Acute bronchitis/pneumonitis, resolving 2. Chronic lung disease, likely asthma. Other cardiovascular status stable. PLAN: 1. Continue Antibiotics, steroids and NEBS treatment 2. Advised to lose weight BMI in the morbidly obese range at 44.9 that seems to be the main problem 3. Counseling for diet done. TIME SPENT: More than 30 minutes. Plan and coordination of the patient's care discussed in the presence of nurse. SCARLET
--- NOTE | 2016-11-23 15:05 | DS ---
DATE OF SERVICE: 11/15/16 FINAL DIAGNOSIS: 1. Acute bronchitis/pneumonitis 2. Coronary artery disease 3. Anemia 4. Gouty Arthritis 5. Asthma 6. Hypertension 7. Dyslipidemia 8. DJD spine 9. Fibromyalgia 10.Neuropathy 11.CABG, 3 vessel, 07/2007 12.Right and left knee arthroplasty, 2000 13.Back surgery, 2002 14.Hysterectomy 15.Cervical surgery 16.Sinus surgeries x3 17.Carpal Tunnel release LAST VITALS: Temperature 97.4, pulse 77, respiratory rate 16, blood pressure 154/85 and pulse ox 99%. DISCHARGE INSTRUCTIONS: Discharge home today. Return to see Dr. Huang in one week. Return to [facility] for pulmonary function test on 11/22/16 at 9am. Resume home medications as per list provided by the nursing staff, use ProAir inhaler at least three times daily for the next few days. MEDICATIONS AT DISCHARGE: [place] 7.5-325 one tablet PO Q 6-8 hours PRN Zyloprim 100mg PO daily Aspirin EC 81mg PO 1600 Lipitor 40mg PO 1600 Lasix 40mg PO QDAC Neurontin 1200mg PO twice a day Mucinex 600mg PO Q 12 hours x3 days Levaquin 500mg PO QDAC x three days Synthroid 50 mcg PO QDAC Claritin 10mg PO 1600 Lopressor 25mg PO daily Nitrostat 0.4mg SL Q 5 minutes x3 doses PRN Zofran tablet 4mg PO daily PRN Miralax 17 gram PO daily PRN K-Dur 20 MEQ PO daily Prednisone 10mg PO twice a day x five days Senna 17.2mg PO daily ALLERGIES: Iodinated contrast Iodine Penicillins Povidone-iodine Soap NEW PRESCRIPTIONS: Prednisone 10 gram take one tablet by mouth twice daily with food for 5 days Levaquin 500mg take one tablet by mouth daily for 3 days Mucinex 600mg take one tablet by mouth every 12 hours for three days. DIET INSTRUCTIONS: Healthy heart. ACTIVITY: Get plenty of rest at home. Gradually increase activity level according to toleration. SMOKING: Nonsmoker DISEASE SPECIFIC EDUCATION: Acute bronchitis/pneumonitis Home medications New Prescriptions Steroid Use including possible adverse reactions with ling term use Follow up HOSPITAL COURSE: The patient was direct admit from the office on 11/12/16. She had been battling acute bronchitis/pneumonitis for three weeks and had been on PO Levaquin and Prednisone with increase in wheezing and productive cough. Her oxygen was low in the office at 92%. She was short of breath with minimal exertion. She was weak and unable to hold her head up in the office. She states that she was barely able to eat or do anything at home. She was subsequently admitted and placed on IV steroids and IV fluids. We started Xopenex, NEBS treatment Q 6 hours, Levaquin IV 500mg, Solu-Cortef 125mg Q 6 hours. Chest x-ray showed no pneumonia. She was also placed on Oxygen at 2 liters. Over the next several days she gradually improved. Today on the day of discharge her oxygen saturation is 99% on room air. She is up and about and has been walking to the bathroom with no shortness of breath. She states that she feels extremely better. She still has a productive cough although she is no longer wheezing. She has been on PO steroids and PO Levaquin since yesterday. She is no longer having to use any O2 and she has remained afebrile. Her temperature on day of discharge was 97.4, heart rate 77, respiratory 20, blood pressure 154/85 and oxygen 99% on room air. Her wheezing has completely resolved although there is minimal bilateral bronchi. Due to the significant improvement we will discharge her home today with PO Levaquin three more days in order to finish the 7 days course and Prednisone 10mg twice a day for five days. She has a ProAir inhaler at home and she is instructed to use this at least three times a day whether she believes she needs it or not until her cough is gone. The patient's labs have all remained in stable condition; sodium 144, potassium 3.9, BUN 19, creatinine 0.68, WBC 10.15, hgb 12.4, hct 38.4 and plt count 159. The patient is in stable condition and states that she is ready to go home. We will followup with her in one week in the office. TIME SPENT: More than 60 minutes. SCARLET
== END 2016-11-15 12:10 | disposition home or self-care (01) | DRG 202 ==
LOC: MEDSURG B 11:28
PROVIDERS: ADMIT Internal Medicine; ATTEND Internal Medicine
DX: J20.9 Acute bronchitis, unspecified (principal); J18.9 Pneumonia, unspecified organism; I25.10 Atherosclerotic heart disease of native coronary artery without angina pectoris; D64.9 Anemia, unspecified; M10.9 Gout, unspecified; J45.909 Unspecified asthma, uncomplicated; I10 Essential (primary) hypertension; E78.5 Hyperlipidemia, unspecified; M47.9 Spondylosis, unspecified; M79.7 Fibromyalgia; G62.9 Polyneuropathy, unspecified; E03.9 Hypothyroidism, unspecified; Z95.1 Presence of aortocoronary bypass graft; Z79.899 Other long term (current) drug therapy
CPT/HCPCS: 36415; 80053; 81001; 82550; 83874; 83880; 84443; 84484; 85025; 87040; 87070; 93005; 93010; 94640; 99223; 99232; 99239

== ENCOUNTER 2016-11-22 08:46 | Outpatient (CLI) | END 2016-11-22 08:47 | disposition home or self-care (01) | LOC: CAR 08:46 | PROVIDERS: ATTEND Internal Medicine | DX: J20.9 Acute bronchitis, unspecified (principal); J18.9 Pneumonia, unspecified organism; Z87.891 Personal history of nicotine dependence ==

== ENCOUNTER 2017-04-20 06:24 | Outpatient (CLI) ==
--- NOTE | 2017-04-20 09:46 | DI ---
EXAM: Chest two views HISTORY: Shortness of breath COMPARISON: 11/12/2016 TECHNIQUE: Two views of the chest were performed FINDINGS: The lungs are clear. There is no pleural effusion or pneumothorax. The heart is top norm al in size. The mediastinal contour is normal, noting atherosclerosis. Median sternotomy wires. Ther e are no acute abnormalities of the bones. Surgical clips in the lower neck region. IMPRESSION: No acute cardiopulmonary process.
== END 2017-04-20 06:25 | disposition home or self-care (01) ==
LOC: CAR 06:24
PROVIDERS: ATTEND Internal Medicine
DX: R06.02 Shortness of breath (principal); R07.9 Chest pain, unspecified; Z95.1 Presence of aortocoronary bypass graft
CPT/HCPCS: 93005; 93010

== ENCOUNTER 2017-04-22 06:27 | Outpatient (CLI) ==
--- NOTE | 2017-04-22 10:32 | NM ---
Cardiac Stress Test HISTORY: Chest pain. Shortness of breath. Bypass surgery in 2007. COMPARISON: None of this type. TECHNIQUE: Resting: The patient was injected with 3.9 mCi of thallium 201 chloride intravenously after which a "resting" SPECT study of the heart was performed. Stress: The patient was stressed using a Dylon protocol and at the appropriate time injected with 24 .6 mCi of 99m technetium Sestamibi (Cardiolite) after which a "stress" SPECT study of the heart was p erformed. Gated images of the heart were also obtained to assess wall motion and calculate ejection f raction. For details of the stress protocol employed, reference is made to the separate report of e performing physician. FINDINGS: The stress perfusion images demonstrate a generally uniform distribution of activity in th e left ventricular myocardium. In addition, there is a region of decreased activity in the mid to dis hernán anterior wall extending to the apex which improves at rest. The resting perfusion images demonstr ate no evidence of significant redistribution/ischemia elsewhere. The left ventricular ejection fraction (LVEF) is 62 %. IMPRESSION: 1. Left ventricular myocardial perfusion demonstrates a region of decreased activity in the mid to d istal anterior wall extending to the apex during stress which improves at rest suggesting reversible ischemia. 2. The left ventricular ejection fraction (LVEF) is 62 %.
--- NOTE | 2017-04-25 12:22 | STRESSMOD ---
Ordering Physician: DUNG GRIFFIN Date of Test: 04/22/17 Medical History: 2008 CABG, SOB, CHEST PAIN Current Medications: HYDROCODONE, ALLOPURINOL, METOPROLOL, FUROSEMIDE, LIPITOR, GABAPENTIN, LEVOTHYROXINE Physical Findings: S1, S2, NO S3 Resting EKG: SINUS RHYTHM/ RIGHT BUNDLE BRANCH BLOCK Target Heart Rate: 124/146 STAGE MPH/GRADE HEART RATE BPM BLOOD PRESSURE mmhg RHYTHM S-T SEGMENT UP DOWN SYMPTOMS,COMMENTS At Rest 60 120/90 SR X NONE 1 1.7/0% 93 122/98 SR X NONE 2 1.7/5% 3 1.7/10% 4 2.5/12% 5 3.4/14% 6 4.2/16% 7 5.18% Immediately after 110 136/80 SR X SHORT OF BREATH Total Time: 5:40 Maximum Heart Rate Reached: 110 Reason for Termination: SHORT OF BREATH 4 MINUTES POST EXERCISE: HR 60 BPM, BP 122/82 MMHG, SR, +/-, NO COMMENTS INTERPRETATION: 94% OXYGEN SATURATION WITH EXERCISE ON ROOM AIR 1. INCONCLUSIVE FOR ISCHEMIC ST-T WAVE (ABNORMAL BASELINE ST-T WAVE) 2. NO CHEST PAIN OR DISCOMFORT 3. NO ARRHYTHMIAS 4. BLOOD PRESSURE RESPONSE: NORMAL NORMAL LEFT VENTRICULAR CONTRACTILITY RESTING AND POST EXERCISE SESTAMIBI TO FOLLOW MTDD
--- NOTE | 2017-04-25 12:26 | ECHOSTRESS ---
Date of Exam: 04/22/17 Ordering Physician: DUNG GRIFFIN Reason for Echo: SOB, CHEST PAIN, CABG 2007, STRESS TEST--INCONCLUSIVE M-Mode Normal Adult Results LV Dimensions Normal Adult Results AoV Opening excursions >1.6 LVEDD-base- 3.5-5.8 Ao root dimensions 2.0-3.7 LVESD-base- 3.1-4.6 L. Atrium dimensions 1.9-3.8 Post. Wall thickness 0.8-1.1 IV septum (thickness) 0.7-1.2 Post. Wall excursion 0.72-1.3 Septal motion Systolic motion R. Ventricular cavity 1.5-2.0 LVEF 60% Paradoxical septal wall motion 2-D: NORMAL LEFT VENTRICULAR CONTRACTILITY--RESTING AND POST EXERCISE M-MODE: MV: AV: TV: PV: CHAMBER SIZE: WALL MOTION: NORMAL LEFT VENTRICULAR CONTRACTILITY--RESTING AND POST EXERCISE PERICARDIUM: INTERPRETATION: 1. NORMAL LEFT VENTRICULAR CONTRACTILITY--RESTING AND POST EXERCISE MTDD
== END 2017-04-22 06:28 | disposition home or self-care (01) ==
LOC: CAR 06:27
PROVIDERS: ATTEND Internal Medicine
DX: R06.02 Shortness of breath (principal); R07.9 Chest pain, unspecified; Z95.1 Presence of aortocoronary bypass graft

== ENCOUNTER 2017-04-26 14:25 | Inpatient (IN) ==
[2017-04-26 16:02] VITALS: BMI 44.3
[2017-04-26] MEDS: DEXTROSE 5%-1/2NS IV SOLUTION 1,000 ML IV SCH (16:30)
[2017-04-26] MEDS ORDERED: DEXTROSE 5%-1/2NS IV SOLUTION 1,000 ML IV ONE (16:30)
[2017-04-26] MEDS ORDERED: NITROSTAT SL PRN (17:48)
[2017-04-26] MEDS ORDERED: NON-FORMULARY MEDICATION (Atorvastatin Calcium [Lipitor] 40 MG) PO SCH (18:00)
[2017-04-26] MEDS ORDERED: LIPITOR ONE (18:49)
[2017-04-26] MEDS: ZOFRAN TAB PO PRN (19:01)
[2017-04-26] MEDS: CLARITIN PO SCH (19:01)
[2017-04-26] MEDS ORDERED: NEURONTIN ONE (20:18)
[2017-04-26] MEDS ORDERED: TUSSIONEX PO STA (20:28)
[2017-04-26] MEDS ORDERED: LEVAQUIN 500 MG in PREMIX 100 ML D5W 1 BAG IV SCH (20:30)
[2017-04-26] MEDS ORDERED: DECADRON 4 MG/ML SDV IM STA (20:31)
[2017-04-26] MEDS ORDERED: LEVAQUIN 100 ML IV ONE (20:53)
[2017-04-26] MEDS ORDERED: GABAPENTIN 1800 MG PO SCH (21:00)
[2017-04-26] MEDS: XOPENEX 1.25 MG NEB SCH (22:53)
[2017-04-27] MEDS: XOPENEX 1.25 MG NEB SCH ×4 (04:45→23:29)
[2017-04-27] MEDS: SYNTHROID PO SCH (05:45)
[2017-04-27] MEDS: DEXTROSE 5%-1/2NS IV SOLUTION 1,000 ML IV SCH ×2 (05:47→17:37)
[2017-04-27] MEDS: ZOFRAN TAB PO PRN (06:35)
[2017-04-27] MEDS ORDERED: TYLENOL PO PRN (08:16)
[2017-04-27] MEDS ORDERED: VISTARIL INJ IM PRN (08:16)
[2017-04-27] MEDS ORDERED: ATROPINE SULFATE PFS IVP PRN (08:16)
[2017-04-27] MEDS ORDERED: MORPHINE 4 MG/ML VIAL IVP PRN (08:16)
[2017-04-27] MEDS ORDERED: PHENERGAN TAB PO PRN (08:17)
[2017-04-27] MEDS: SENNA PO SCH ×2 (08:58→09:03)
[2017-04-27] MEDS: ZOFRAN 4 MG/2 ML IVP SCH ×3 (08:58→23:53)
[2017-04-27] MEDS: COLACE PO SCH ×2 (08:58→09:30)
[2017-04-27] MEDS: TUSSIONEX PO SCH ×2 (08:59→20:27)
[2017-04-27] MEDS: NEURONTIN PO SCH ×2 (08:59→20:27)
[2017-04-27] MEDS: SOLU-CORTEF 250 MG IVP SCH ×3 (08:59→20:28)
[2017-04-27] MEDS ORDERED: SENNOSIDES PO SCH (09:00)
[2017-04-27] MEDS: LOPRESSOR PO SCH (09:00)
[2017-04-27] MEDS ORDERED: DOCUSATE SODIUM PO SCH (09:00)
[2017-04-27] MEDS: MIRALAX PO SCH (09:00)
[2017-04-27] MEDS ORDERED: GABAPENTIN PO SCH (09:00)
[2017-04-27] MEDS ORDERED: DECADRON 4 MG/ML SDV IM SCH (09:00)
[2017-04-27] MEDS: LASIX TAB PO SCH (09:00)
[2017-04-27] MEDS: TAMIFLU PO SCH ×2 (09:00→20:27)
[2017-04-27] MEDS: K-DUR PO SCH (09:00)
[2017-04-27] MEDS ORDERED: COLACE PO SCH (09:05)
[2017-04-27] MEDS ORDERED: COLACE PO ONE (09:10)
--- NOTE | 2017-04-27 11:13 | PCM.PROG ---
Attending Provider: ATTENDING PROVIDER: Dr. DUNG GRIFFIN This patient is seen with Erin Bergman, Nurse Practitioner. DATE OF SERVICE: 04/27/17 SUBJECTIVE: This 76 year old WHITE/ F was hospitalized 04/26/17. The patient is sitting in chair, alert. She did not sleep. She is still short of breath, coughing and positive for Influenza A. REVIEW OF SYSTEMS: CONSTITUTIONAL: No night sweats. No fatigue, malaise, lethargy. No fever or chills. HEENT: Eyes: No visual changes. No eye pain. No eye discharge. ENT: No runny nose. No epistaxis. No sinus pain. No odynophagia. No congestion. RESPIRATORY: Cough and congestion. No hemoptysis. Shortness of breath. CARDIOVASCULAR: No angina symptoms. No CHF symptoms. No atypical chest pain for CAD. No palpitations. No orthopnea.. GASTROINTESTINAL: Positive for nausea. No abdominal pain. No vomiting. No diarrhea or constipation. No hematemesis. No hematochezia. GENITOURINARY: No urgency. No frequency. No dysuria. No hematuria. No obstructive symptoms. No discharge. No pain. No significant abnormal bleeding. MUSCULOSKELETAL: No musculoskeletal pain; no joint swelling. NEUROLOGICAL: Awake, alert, oriented to time, place and person. No headache. No neck pain. No syncope. No seizures. No dizziness. PSYCHIATRIC: Not anxious. No depression. No suicidal thoughts. No homicidal thoughts. SKIN: No rash. No lesions. No wounds. ENDOCRINE: No unexplained weight loss. No weight gain. HEMATOLOGIC/LYMPHATIC: No anemia. No purpura. No petechiae. No prolonged or excessive bleeding. No palpable lymph nodes. PHYSICAL EXAMINATION: GENERAL: The patient is awake, alert and oriented, sitting in bed in no distress. VITAL SIGNS: Temperature 98.1 F, Pulse 71, Respiratory Rate 18, BP 138/86, Pulse Ox 98% HEENT: Head normocephalic, atraumatic. Eyes: Extraocular muscles are intact. Pupils are equal, round and reactive to light and accommodation. Ears: No lesions. Nose appeared normal. Throat: No exudate or erythema. NECK: Supple. No JVD, no carotid bruit. No lymphadenopathy or thyromegaly. LUNGS: Bilateral inspiratory and expiratory wheezing and rhonchi. Percussion note normal. Chest symmetrical. HEART: S1, S2, no S3. No murmurs. No cyanosis or clubbing. No ascites. Pulses: Dorsalis pedis and posterior tibial pulses +1 to +2 both sides. ABDOMEN: Soft. Non-tender. Bowel sounds active. No CVA tenderness. No mass felt. EXTREMITIES: No edema. Full range of motion of all extremities, equal. NEUROLOGIC: No focal deficit. Cranial nerves II through XII are grossly intact. No headache, no double vision or headache. SKIN: Not dry. Intact. Turgor-normal. LYMPHATIC: No palpable lymph nodes/no lymphedema. MUSCULOSKELETAL: Normal joints with no swelling. Muscle tone is normal. LAB REVIEW: 04/27/17 04:30 04/27/17 04:30 04/27/17 04:30: Sodium 138, Potassium 4.1, Chloride 100, Carbon Dioxide 29, Anion Gap 13.1, BUN 12, Creatinine 0.72, Estimated GFR (MDRD) 79.00, BUN/ Creatinine Ratio 16.66, Glucose 154 H, Calcium 9.1, Total Bilirubin 0.4, AST 39 H, ALT 33, Alkaline Phosphatase 65, Total Protein 7.1, Albumin 3.3 L, Globulin 3.8, Albumin/Globulin Ratio 0.87 04/27/17 04:30: WBC 3.51 L, RBC 4.15 L, Hgb 12.1, Hct 38.0, MCV 91.6, MCH 29.2, MCHC 31.8, RDW Coeff of Tala 14.2, Plt Count 142, Immature Gran % (Auto) 0.9, Neut % (Auto) 78.6, Lymph % (Auto) 14.8, [place] % (Auto) 5.1, Eos % (Auto) 0.3, Baso % (Auto) 0.3, Immature Gran # (Auto) 0.0, Neut # 2.8, Lymph # 0.5 L, [place] # 0.2 L, Eos # 0.0, Baso # 0.0 04/27/17 00:05: Influenza A (Rapid) Positive by naat H, Influenza B (Rapid) Negative by naat 04/26/17 20:53: Urine Color Yellow, Urine Clarity Clear, Urine pH 5.5, Ur Specific [place] 1.020, Urine Protein Negative, Urine Glucose (UA) Negative, Urine Ketones Negative, Urine Blood Negative, Urine Nitrite Negative, Urine Bilirubin Negative, Urine Urobilinogen 0.2, Ur Leukocyte Esterase Negative ASSESSMENT: 1. INFLUENZA A 2. ACUTE BRONCHITIS 3. SHORTNESS OF BREATH 4. NAUSEA PLAN: 1. Chest x-ray 2. Phenergan 25 mg p.o. q.8 p.r.n. 3. Tamiflu 75 mg p.o. b.i.d. 4. Solu-Cortef 125 mg q.8 IV 5. Stop Decadron 6. Zofran NASRIN p.r.n. Plan and coordination of the patient's care discussed in the presence of Buddhist Monk and nurse. CONDITION: Stable SCRIBED BY: ELIZABETH LYNN Special Education Resource Teacher scribed while in presence of service performed by Dr. Griffin/Erin Bergman APRN on 04/27/17 ([id number])
--- NOTE | 2017-04-27 11:32 | DI ---
Exam: Two x-rays of the chest. Comparison: 04/20/2017. Reason for exam: Cough, wheeze shortness of breath. FINDINGS: No pneumothorax, pleural effusion, or focal consolidation. Operative changes are seen aft er midline sternotomy with surgical clips in both apices. The cardiac silhouette is unchanged. The i damien osseous structures demonstrate degenerative disease in the thoracic spine. Impression: No acute cardiopulmonary process.
[2017-04-27] MEDS ORDERED: SOLU-CORTEF 100 MG IVP SCH (13:00)
[2017-04-27] MEDS: LIPITOR PO SCH (17:36)
[2017-04-27] MEDS: CLARITIN PO SCH (17:37)
[2017-04-27] MEDS: LEVAQUIN 500 MG in PREMIX 100 ML D5W 1 BAG IV SCH (20:28)
[2017-04-27] MEDS: AMBIEN PO PRN (23:58)
[2017-04-28] MEDS: SOLU-CORTEF 250 MG IVP SCH ×3 (04:37→21:05)
[2017-04-28] MEDS: XOPENEX 1.25 MG NEB SCH ×3 (05:02→23:06)
[2017-04-28] MEDS: ZOFRAN 4 MG/2 ML IVP SCH ×3 (05:41→17:04)
[2017-04-28] MEDS: SYNTHROID PO SCH (05:42)
[2017-04-28] MEDS: LASIX TAB PO SCH (05:42)
[2017-04-28] MEDS: DEXTROSE 5%-1/2NS IV SOLUTION 1,000 ML IV SCH (08:30)
[2017-04-28] MEDS: NEURONTIN PO SCH ×2 (08:46→21:04)
[2017-04-28] MEDS: TUSSIONEX PO SCH ×2 (08:46→21:05)
[2017-04-28] MEDS: K-DUR PO SCH (08:46)
[2017-04-28] MEDS: LOPRESSOR PO SCH (08:46)
[2017-04-28] MEDS: MIRALAX PO SCH (08:47)
[2017-04-28] MEDS: TAMIFLU PO SCH ×2 (08:49→21:05)
--- NOTE | 2017-04-28 10:05 | PCM.PROG ---
Attending Provider: ATTENDING PROVIDER: Dr. DUNG GRIFFIN This patient is seen with Erin Bergman, Nurse Practitioner. DATE OF SERVICE: 04/28/17 SUBJECTIVE: This 76 year old WHITE/ F was hospitalized 04/26/17. The patient is sitting in chair, alert. She is still somewhat short of breath. She states she slept a little better last night. REVIEW OF SYSTEMS: CONSTITUTIONAL: Weakness. No night sweats. No fever or chills. HEENT: Eyes: No visual changes. No eye pain. No eye discharge. ENT: No runny nose. No epistaxis. No sinus pain. No odynophagia. No congestion. RESPIRATORY: Cough and congestion. No hemoptysis. No shortness of breath. CARDIOVASCULAR: No angina symptoms. No CHF symptoms. No atypical chest pain for CAD. No palpitations. No orthopnea.. GASTROINTESTINAL: No abdominal pain. No nausea or vomiting. No diarrhea or constipation. No hematemesis. No hematochezia. GENITOURINARY: No urgency. No frequency. No dysuria. No hematuria. No obstructive symptoms. No discharge. No pain. No significant abnormal bleeding. MUSCULOSKELETAL: No musculoskeletal pain; no joint swelling. NEUROLOGICAL: Awake, alert, oriented to time, place and person. No headache. No neck pain. No syncope. No seizures. No dizziness. PSYCHIATRIC: Not anxious. No depression. No suicidal thoughts. No homicidal thoughts. SKIN: No rash. No lesions. No wounds. ENDOCRINE: No unexplained weight loss. No weight gain. HEMATOLOGIC/LYMPHATIC: No anemia. No purpura. No petechiae. No prolonged or excessive bleeding. No palpable lymph nodes. PHYSICAL EXAMINATION: GENERAL: The patient is awake, alert and oriented, lying/sitting in bed in no distress. VITAL SIGNS: Temperature 97.8 F, Pulse 71, Respiratory Rate 18, BP 133/78, Pulse Ox 95% HEENT: Head normocephalic, atraumatic. Eyes: Extraocular muscles are intact. Pupils are equal, round and reactive to light and accommodation. Ears: No lesions. Nose appeared normal. Throat: No exudate or erythema. NECK: Supple. No JVD, no carotid bruit. No lymphadenopathy or thyromegaly. LUNGS: Bilateral wheezing. Percussion note normal. Chest symmetrical. HEART: S1, S2, no S3. No murmurs. No cyanosis or clubbing. No ascites. Pulses: Dorsalis pedis and posterior tibial pulses +1 to +2 both sides. ABDOMEN: Soft. Non-tender. Bowel sounds active. No CVA tenderness. No mass felt. EXTREMITIES: No edema. Full range of motion of all extremities, equal. NEUROLOGIC: No focal deficit. Cranial nerves II through XII are grossly intact. No headache, no double vision or headache. SKIN: Not dry. Intact. Turgor-normal. LYMPHATIC: No palpable lymph nodes/no lymphedema. MUSCULOSKELETAL: Normal joints with no swelling. Muscle tone is normal. LAB REVIEW: 04/28/17 04:19 04/28/17 04:19 04/28/17 04:19: Sodium 139, Potassium 3.6, Chloride 104, Carbon Dioxide 26, Anion Gap 12.6, BUN 11, Creatinine 0.69, Estimated GFR (MDRD) 83.00, BUN/ Creatinine Ratio 15.94, Glucose 150 H, Calcium 8.7, Total Bilirubin 0.3, AST 24 , ALT 27, Alkaline Phosphatase 54, Total Protein 6.2, Albumin 3.0 L, Globulin 3.2, Albumin/Globulin Ratio 0.94 04/28/17 04:19: WBC 6.20, RBC 3.98 L, Hgb 11.8 L, Hct 36.7 L, MCV 92.2, MCH 29.6 , MCHC 32.2, RDW Coeff of [place]ala 13.9, Plt Count 175, Immature Gran % (Auto) 1.0, Neut % (Auto) 74.3, Lymph % (Auto) 15.8, [place] % (Auto) 8.7, Eos % (Auto) 0.0, Baso % (Auto) 0.2, Immature Gran # (Auto) 0.1, Neut # 4.6, Lymph # 1.0, [place] # 0.5, Eos # 0.0, Baso # 0.0 ASSESSMENT: 1. INFLUENZA A 2. ACUTE BRONCHITIS 3. SHORTNESS OF BREATH, IMPROVING 4. NAUSEA PLAN: 1. Stop IV fluids 2. Continue to monitor Plan and coordination of the patient's care discussed in the presence of Family Consumer Scientist and nurse. CONDITION: Stable SCRIBED BY: ELIZABETH LYNN Geophysical Support Specialist scribed while in presence of service performed by Dr. Griffin/Erin Bergman APRN on 04/28/17 ([id number])
[2017-04-28] MEDS ORDERED: ANUCORT-HC RC PRN (11:36)
[2017-04-28] MEDS: LIPITOR PO SCH (17:04)
[2017-04-28] MEDS: CLARITIN PO SCH (17:04)
[2017-04-28] MEDS: AMBIEN PO PRN (21:04)
[2017-04-28] MEDS: LEVAQUIN 500 MG in PREMIX 100 ML D5W 1 BAG IV SCH (21:05)
[2017-04-29] MEDS: ZOFRAN 4 MG/2 ML IVP SCH ×2 (00:56→05:47)
[2017-04-29] MEDS: XOPENEX 1.25 MG NEB SCH ×3 (04:06→23:48)
[2017-04-29] MEDS: SYNTHROID PO SCH (05:47)
[2017-04-29] MEDS: LASIX TAB PO SCH (05:47)
[2017-04-29] MEDS: SOLU-CORTEF 250 MG IVP SCH ×3 (05:47→20:50)
[2017-04-29] MEDS ORDERED: LASIX IVP STA (08:46)
[2017-04-29] MEDS: LOPRESSOR PO SCH (08:58)
[2017-04-29] MEDS: COLACE PO SCH ×2 (08:58→20:47)
[2017-04-29] MEDS: TAMIFLU PO SCH ×2 (08:59→20:48)
[2017-04-29] MEDS: NEURONTIN PO SCH ×2 (08:59→20:48)
[2017-04-29] MEDS: K-DUR PO SCH (08:59)
[2017-04-29] MEDS: MIRALAX PO SCH (08:59)
[2017-04-29] MEDS: TUSSIONEX PO SCH ×2 (09:00→20:51)
--- NOTE | 2017-04-29 10:31 | PCM.PROG ---
Attending Provider: ATTENDING PROVIDER: Dr. DUNG GRIFFIN This patient is seen with Erin Bergman, Nurse Practitioner. DATE OF SERVICE: 04/29/17 SUBJECTIVE: This 76 year old WHITE/ F was hospitalized 04/26/17. The patient is sitting in chair, is alert. Cough is somewhat improved. REVIEW OF SYSTEMS: CONSTITUTIONAL: Positive for weakness. No night sweats. No fever or chills. HEENT: Eyes: No visual changes. No eye pain. No eye discharge. ENT: No runny nose. No epistaxis. No sinus pain. No odynophagia. No congestion. RESPIRATORY: Positive for cough and wheezing. No hemoptysis. No shortness of breath. CARDIOVASCULAR: No angina symptoms. No CHF symptoms. No atypical chest pain for CAD. No palpitations. No orthopnea.. GASTROINTESTINAL: No abdominal pain. No nausea or vomiting. No diarrhea or constipation. No hematemesis. No hematochezia. GENITOURINARY: No urgency. No frequency. No dysuria. No hematuria. No obstructive symptoms. No discharge. No pain. No significant abnormal bleeding. MUSCULOSKELETAL: No musculoskeletal pain; no joint swelling. NEUROLOGICAL: Awake, alert, oriented to time, place and person. No headache. No neck pain. No syncope. No seizures. No dizziness. PSYCHIATRIC: Not anxious. No depression. No suicidal thoughts. No homicidal thoughts. SKIN: No rash. No lesions. No wounds. ENDOCRINE: No unexplained weight loss. No weight gain. HEMATOLOGIC/LYMPHATIC: No anemia. No purpura. No petechiae. No prolonged or excessive bleeding. No palpable lymph nodes. PHYSICAL EXAMINATION: GENERAL: The patient is awake, alert and oriented, sitting in chair in no distress. VITAL SIGNS: Temperature 97.4 F, Pulse 88, Respiratory Rate 22, BP 130/66, Pulse Ox 94% HEENT: Head normocephalic, atraumatic. Eyes: Extraocular muscles are intact. Pupils are equal, round and reactive to light and accommodation. Ears: No lesions. Nose appeared normal. Throat: No exudate or erythema. NECK: Supple. No JVD, no carotid bruit. No lymphadenopathy or thyromegaly. LUNGS: Bilateral rhonchi with wheeze on the left. Clear to auscultation. Percussion note normal. Chest symmetrical. HEART: S1, S2, no S3. No murmurs. No cyanosis or clubbing. No ascites. Pulses: Dorsalis pedis and posterior tibial pulses +1 to +2 both sides. ABDOMEN: Soft. Non-tender. Bowel sounds active. No CVA tenderness. No mass felt. EXTREMITIES: 1+ edema bilateral lower extremity. Full range of motion of all extremities, equal. NEUROLOGIC: No focal deficit. Cranial nerves II through XII are grossly intact. No headache, no double vision or headache. SKIN: Not dry. Intact. Turgor-normal. LYMPHATIC: No palpable lymph nodes/no lymphedema. MUSCULOSKELETAL: Normal joints with no swelling. Muscle tone is normal. LAB REVIEW: 04/29/17 05:25 04/29/17 05:25 04/29/17 05:25: Sodium 142, Potassium 3.9, Chloride 103, Carbon Dioxide 31, Anion Gap 11.9, BUN 16, Creatinine 0.77, Estimated GFR (MDRD) 73.00, BUN/ Creatinine Ratio 20.77, Glucose 134 H, Calcium 9.2, Total Bilirubin 0.4, AST 24 , ALT 29, Alkaline Phosphatase 55, Total Protein 6.6, Albumin 3.3 L, Globulin 3.3, Albumin/Globulin Ratio 1.00 04/29/17 05:25: WBC 5.74, RBC 3.87 L, Hgb 11.6 L, Hct 35.4 L, MCV 91.5, MCH 30.0 , MCHC 32.8, RDW Coeff of Tala 14.4, Plt Count 164, Immature Gran % (Auto) 1.2, Neut % (Auto) 75.8, Lymph % (Auto) 17.2, [place] % (Auto) 5.6, Eos % (Auto) 0.0, Baso % (Auto) 0.2, Immature Gran # (Auto) 0.1, Neut # 4.4, Lymph # 1.0, [place] # 0.3 L, Eos # 0.0, Baso # 0.0 ASSESSMENT: 1. INFLUENZA A 2. ACUTE BRONCHITIS 3. SHORTNESS OF BREATH, IMPROVING 4. LEG EDEMA PLAN: 1. Lasix 20 mg IV one time dose 2. Encourage to walk 3. Colace 200 twice a day for constipation Plan and coordination of the patient's care discussed in the presence of [employer] Coordinator and nurse. CONDITION: Stable SCRIBED BY: ELIZABETH LYNN Proposal Writer scribed while in presence of service performed by Dr. Griffin/Erin Bergman APRN on 04/29/17 ([id number])
[2017-04-29] MEDS: CLARITIN PO SCH (16:46)
[2017-04-29] MEDS: LIPITOR PO SCH (16:47)
[2017-04-29] MEDS: LEVAQUIN 500 MG in PREMIX 100 ML D5W 1 BAG IV SCH (20:51)
[2017-04-29] MEDS: NORCO 7.5-325 PO PRN (22:43)
[2017-04-30] MEDS: XOPENEX 1.25 MG NEB SCH ×3 (04:03→20:29)
[2017-04-30] MEDS: SOLU-CORTEF 250 MG IVP SCH ×3 (05:55→20:23)
[2017-04-30] MEDS: SYNTHROID PO SCH (05:55)
[2017-04-30] MEDS: LASIX TAB PO SCH (05:55)
[2017-04-30] MEDS: MIRALAX PO SCH (08:25)
[2017-04-30] MEDS: TUSSIONEX PO SCH ×2 (08:26→21:13)
[2017-04-30] MEDS: K-DUR PO SCH (08:26)
[2017-04-30] MEDS: COLACE PO SCH ×2 (08:26→21:16)
[2017-04-30] MEDS: LOPRESSOR PO SCH (08:27)
[2017-04-30] MEDS: NEURONTIN PO SCH ×2 (08:27→21:16)
[2017-04-30] MEDS: TAMIFLU PO SCH ×2 (08:27→21:16)
[2017-04-30] MEDS: LIPITOR PO SCH (16:55)
[2017-04-30] MEDS: CLARITIN PO SCH (16:55)
[2017-04-30] MEDS: LEVAQUIN 500 MG in PREMIX 100 ML D5W 1 BAG IV SCH (21:13)
[2017-04-30] MEDS: ZOFRAN 4 MG/2 ML IVP PRN (23:48)
[2017-05-01] MEDS: NORCO 7.5-325 PO PRN ×2 (00:32→08:47)
[2017-05-01] MEDS: SOLU-CORTEF 250 MG IVP SCH ×3 (04:42→19:59)
[2017-05-01] MEDS: XOPENEX 1.25 MG NEB SCH ×3 (05:09→20:31)
[2017-05-01] MEDS: SYNTHROID PO SCH (06:09)
[2017-05-01] MEDS: LASIX TAB PO SCH (06:09)
[2017-05-01] MEDS: TAMIFLU PO SCH ×2 (08:47→20:04)
[2017-05-01] MEDS: TUSSIONEX PO SCH ×2 (08:47→20:04)
[2017-05-01] MEDS: NEURONTIN PO SCH ×2 (08:47→20:04)
[2017-05-01] MEDS: COLACE PO SCH ×2 (08:48→20:04)
[2017-05-01] MEDS: K-DUR PO SCH (08:48)
[2017-05-01] MEDS: MIRALAX PO SCH (08:48)
[2017-05-01] MEDS: LOPRESSOR PO SCH (08:48)
[2017-05-01] MEDS: CLARITIN PO SCH (17:37)
[2017-05-01] MEDS: LIPITOR PO SCH (17:37)
[2017-05-01] MEDS: ZOFRAN 4 MG/2 ML IVP PRN (19:59)
[2017-05-01] MEDS: AMBIEN PO PRN (20:03)
[2017-05-01] MEDS: LEVAQUIN 500 MG in PREMIX 100 ML D5W 1 BAG IV SCH (20:03)
[2017-05-02] MEDS: SOLU-CORTEF 250 MG IVP SCH (04:07)
[2017-05-02] MEDS: XOPENEX 1.25 MG NEB SCH ×3 (05:31→23:38)
[2017-05-02] MEDS: LASIX TAB PO SCH (05:36)
[2017-05-02] MEDS: SYNTHROID PO SCH (05:36)
[2017-05-02] MEDS ORDERED: PREDNISONE PO SCH (08:30)
--- NOTE | 2017-05-02 09:46 | DI ---
EXAM: Two views of the chest. History: Wheezing and cough. Comparison: Chest radiograph 04/27/2017 Findings: Heart is borderline enlarged. Sternotomy wires. No focal consolidation. No appreciable pleural fluid and no pneumothorax. No acute osseous abnormalities. Surgical clips again seen within the neck. Impression: Borderline cardiomegaly without acute disease in the chest.
--- NOTE | 2017-05-02 10:01 | PCM.PROG ---
Attending Provider: ATTENDING PROVIDER: Dr. DUNG GRIFFIN This patient is seen with Erin Bergman, Nurse Practitioner. DATE OF SERVICE: 05/02/17 SUBJECTIVE: This 76 year old WHITE/ F was hospitalized 04/26/17. The patient is sitting in chair. She is alert. Coughing is somewhat better. She is still wheezing. REVIEW OF SYSTEMS: CONSTITUTIONAL: No night sweats. No fatigue, malaise, lethargy. No fever or chills. HEENT: Eyes: No visual changes. No eye pain. No eye discharge. ENT: No runny nose. No epistaxis. No sinus pain. No odynophagia. No congestion. RESPIRATORY: Cough and congestion. No hemoptysis. Shortness of breath. CARDIOVASCULAR: No angina symptoms. No CHF symptoms. No atypical chest pain for CAD. No palpitations. No orthopnea.. GASTROINTESTINAL: No abdominal pain. No nausea or vomiting. No diarrhea or constipation. No hematemesis. No hematochezia. GENITOURINARY: No urgency. No frequency. No dysuria. No hematuria. No obstructive symptoms. No discharge. No pain. No significant abnormal bleeding. MUSCULOSKELETAL: No musculoskeletal pain; no joint swelling. NEUROLOGICAL: Awake, alert, oriented to time, place and person. No headache. No neck pain. No syncope. No seizures. No dizziness. PSYCHIATRIC: Not anxious. No depression. No suicidal thoughts. No homicidal thoughts. SKIN: No rash. No lesions. No wounds. ENDOCRINE: No unexplained weight loss. No weight gain. HEMATOLOGIC/LYMPHATIC: No anemia. No purpura. No petechiae. No prolonged or excessive bleeding. No palpable lymph nodes. PHYSICAL EXAMINATION: GENERAL: The patient is awake, alert and oriented, sitting in chair in no distress. VITAL SIGNS: Temperature 97.4 F, Pulse 73, Respiratory Rate 18, BP 152/79, Pulse Ox 96% HEENT: Head normocephalic, atraumatic. Eyes: Extraocular muscles are intact. Pupils are equal, round and reactive to light and accommodation. Ears: No lesions. Nose appeared normal. Throat: No exudate or erythema. NECK: Supple. No JVD, no carotid bruit. No lymphadenopathy or thyromegaly. LUNGS: Diminished breath sounds with bilateral rhonchi and expiratory wheeze. Percussion note normal. Chest symmetrical. HEART: S1, S2, no S3. No murmurs. No cyanosis or clubbing. No ascites. Pulses: Dorsalis pedis and posterior tibial pulses +1 to +2 both sides. ABDOMEN: Soft. Non-tender. Bowel sounds active. No CVA tenderness. No mass felt. EXTREMITIES: Trace pedal edema. Full range of motion of all extremities, equal. NEUROLOGIC: No focal deficit. Cranial nerves II through XII are grossly intact. No headache, no double vision or headache. SKIN: Not dry. Intact. Turgor-normal. LYMPHATIC: No palpable lymph nodes/no lymphedema. MUSCULOSKELETAL: Normal joints with no swelling. Muscle tone is normal. LAB REVIEW: 05/02/17 05:25 05/02/17 05:25 05/02/17 05:25: Sodium 142, Potassium 3.5, Chloride 98, Carbon Dioxide 35 H, Anion Gap 12.5, BUN 18, Creatinine 0.74, Estimated GFR (MDRD) 77.00, BUN/ Creatinine Ratio 24.32, Glucose 128 H, Calcium 8.8, Total Bilirubin 0.5, AST 22 , ALT 36, Alkaline Phosphatase 50 L, Total Protein 5.9, Albumin 3.0 L, Globulin 2.9, Albumin/Globulin Ratio 1.03 05/02/17 05:25: WBC 10.57 H, RBC 3.96 L, Hgb 11.7 L, Hct 35.9 L, MCV 90.7, MCH 29.5, MCHC 32.6, RDW Coeff of Tala 14.0, Plt Count 183, Immature Gran % (Auto) 2.8, Neut % (Auto) 79.2, Lymph % (Auto) 12.4, [place] % (Auto) 5.2, Eos % (Auto) 0.1, Baso % (Auto) 0.3, Immature Gran # (Auto) 0.3, Neut # 8.4 H, Lymph # 1.3, [place] # 0.6, Eos # 0.0, Baso # 0.0 ASSESSMENT: 1. INFLUENZA A 2. ACUTE BRONCHITIS 3. SHORTNESS OF BREATH, IMPROVING 4. LEG EDEMA 5. ASTHMA PLAN: 1. Prednisone 20 mg p.o. b.i.d. 2. Decrease Solu-Cortef 3. Levaquin 500 mg p.o. today Plan and coordination of the patient's care discussed in the presence of Fence Rider and nurse. CONDITION: Stable SCRIBED BY: ELIZABETH LYNN Blood Collector scribed while in presence of service performed by Dr. Griffin/Erin Bergman APRN on 05/02/17 ([id number])
[2017-05-02] MEDS: COLACE PO SCH ×2 (10:12→21:18)
[2017-05-02] MEDS: NEURONTIN PO SCH ×2 (10:13→21:17)
[2017-05-02] MEDS: LOPRESSOR PO SCH (10:13)
[2017-05-02] MEDS: K-DUR PO SCH (10:13)
[2017-05-02] MEDS: TUSSIONEX PO SCH ×2 (10:13→21:17)
[2017-05-02] MEDS: MIRALAX PO SCH (10:13)
[2017-05-02] MEDS: ZOFRAN 4 MG/2 ML IVP PRN (14:09)
--- NOTE | 2017-05-02 15:26 | PN ---
DATE OF SERVICE: 04/29/17 SUBJECTIVE: The patient was hospitalized with Influenza A and bronchitis. She is feeling better. PHYSICAL EXAMINATION: HEENT: Head normocephalic, atraumatic. Eyes: Extraocular muscles are intact. Pupils are equal, round and reactive to light and accommodation. Ears: No lesions. Nose appeared normal. Throat: No exudate or erythema. NECK: Supple. No JVD, no carotid bruit. No lymphadenopathy or thyromegaly. LUNGS: Still has mild wheeze with decreased breath sounds. Percussion note normal. Chest symmetrical. HEART: S1, S2, no S3. No murmurs. No cyanosis or clubbing. No ascites. Pulses: Dorsalis pedis and posterior tibial pulses +1 to +2 both sides. ABDOMEN: Soft. Nontender. Bowel sounds active. No CVA tenderness. No mass felt. EXTREMITIES: No edema. Full range of motion of all extremities, equal. NEUROLOGIC: No focal deficit. Cranial nerves II through XII are grossly intact. No headache, no double vision or headache. SKIN: Not dry. Intact. Turgor - normal. LYMPHATIC: No palpable lymph nodes/no lymphedema. MUSCULOSKELETAL: Normal joints with no swelling. Muscle tone is normal. PLAN: 1. Continue antibiotic steroids 2. NEBS The patient was seen and examined with Nurse Practitioner. TIME SPENT: More than 30 minutes. Plan and coordination of the patient's care discussed in the presence of nurse. SCARLET
[2017-05-02] MEDS: PREDNISONE PO SCH (18:08)
[2017-05-02] MEDS: LIPITOR PO SCH (18:08)
[2017-05-02] MEDS: CLARITIN PO SCH (18:08)
[2017-05-03] MEDS: XOPENEX 1.25 MG NEB SCH (04:05)
[2017-05-03] MEDS: SYNTHROID PO SCH (05:41)
[2017-05-03] MEDS: LASIX TAB PO SCH (05:41)
[2017-05-03] MEDS ORDERED: LEVAQUIN PO SCH (06:30)
--- NOTE | 2017-05-03 07:52 | PN ---
DATE OF SERVICE: 04/28/17 SUBJECTIVE: The patient was hospitalized with acute bronchitis, cough and congestion. The patient's influenza test was positive. PHYSICAL EXAMINATION: HEENT: Head normocephalic, atraumatic. Eyes: Extraocular muscles are intact. Pupils are equal, round and reactive to light and accommodation. Ears: No lesions. Nose appeared normal. Throat: No exudate or erythema. NECK: Supple. No JVD, no carotid bruit. No lymphadenopathy or thyromegaly. LUNGS: Clear to auscultation. Percussion note normal. Chest symmetrical. HEART: S1, S2, no S3. No murmurs. No cyanosis or clubbing. No ascites. Pulses: Dorsalis pedis and posterior tibial pulses +1 to +2 both sides. ABDOMEN: Soft. Nontender. Bowel sounds active. No CVA tenderness. No mass felt. EXTREMITIES: No edema. Full range of motion of all extremities, equal. NEUROLOGIC: No focal deficit. Cranial nerves II through XII are grossly intact. No headache, no double vision or headache. SKIN: Not dry. Intact. Turgor - normal. Hydration status has improved. LYMPHATIC: No palpable lymph nodes/no lymphedema. MUSCULOSKELETAL: Normal joints with no swelling. Muscle tone is normal. She has more strength. CONDITION: Improving. The patient was seen and examined with the Nurse Practitioner. TIME SPENT: More than 30 minutes. Plan and coordination of the patient's care discussed in the presence of nurse. SCARLET
[2017-05-03] MEDS ORDERED: K-DUR PO STA (08:00)
--- NOTE | 2017-05-03 08:23 | HP ---
DATE OF SERVICE: 04/26/17 REASON FOR HOSPITALIZATION/HISTORY OF PRESENT ILLNESS: Started Tuesday coughing with shortness of breath, nauseated and poor appetite. No fever x4 days. Generalized aches and pains. 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 HEENT: Sinus drainage, no sore throat. RESPIRATORY: Cough green sputum, no congestion. CARDIOVASCULAR: No atypical chest pain for coronary artery disease. No angina , CHF symptoms, palpitations or shortness of breath. GASTROINTESTINAL: No melena or abdominal pain. No GERD. GENITOURINARY: No hematuria, no prostatism, no polyuria. COMPOSITE ENGINEER: No blackout, no dizziness, no headache, no double vision. MUSCULOSKELETAL: Osteoarthritis pain, no joint swelling. ENDOCRINE: No weight loss, no weight gain. SKIN: Not dry, no rash. PSYCHIATRIC: Anxious, no depression, no suicidal thoughts, no homicidal thoughts. SOCIAL HISTORY: Marital Status:. Alcohol Usage: No. Tobacco Usage: No. FAMILY HISTORY: Father 64 year old [place] lung Mother 64 year old ALS Brother 1, Savage Aaron MEDICATIONS: Gabapentin 600mg four times a day Synthroid 50mcg PO daily Potassium Chloride 20 meq PO daily Allopurinol 100mg PO twice a day Ambien 5mg PO at bedtime four times a week Furosemide 40mg PO daily Zofran 4mg take one tablet Q6 hour PRN Lipitor 40mg PO daily Loratadine 10mg PO daily Metoprolol tartrate 25mg PO daily [place] 7.5-325 PO four times per day as needed for pain PRN Nitroglycerin 0.4mg sublingual Pericolace 1 tablet three times per day Aspirin 81mg PO daily ALLERGIES: Iodine Penicillin Cymbalta PHYSICAL EXAMINATION: V/S: Pulse 77, blood pressure 136/68, temperature 98, pulse ox 91% GENERAL APPEARANCE: Oriented times three. HEENT: Normal. Skin dry. NECK: No JVP, Bruits. RESPIRATORY: Decreased breath sounds, bilateral. CARDIOVASCULAR: S1, S2, no S3, no murmurs. No cyanosis, clubbing. No ascites. GI/ABDOMEN: No tenderness. Bowel sounds are active. EXTREMITIES: edema, pulses +1, equal. COMPOSITE ENGINEER: Deep tendon reflexes, sensory, motor and gait all normal. RECTAL: Dr. Last 2013 EGD/PELVIC: Dr. Mondragon 11/08, mammogram 06/11 Dr. Goldstein. ASSESSMENT: 1. Acute bronchitis/pneumonitis 2. Dehydration 3. Pleurisy 4. History of bronchial asthma 5. History CABGS 6. Coronary artery disease 2007 7. Generalized osteoarthritis 8. Bilateral sciatica 9. Anemia 10.Back surgery 11.History of gout 12.Neuropathy 13.Fibromyalgia 14.Bilateral total knee replacement 15.CARLOS 16.Hypertension 17. LVH PLAN: 1. Admit 2. Routine Telemetry orders, Do not do cardiac markers 3. 1000cc D5 1/2 normal saline 12 hours 4. Levaquin 500mg IV Q 24 hours 5. Sputum for culture and sensitivity 6. Continue all home medications 7. Tussionex 1 teaspoon PO now and twice a day 8. Urinalysis and culture and sensitivity 9. Rapid flu A&B 10.2cc Decadron now and 1cc Decadron IM QAM 11.Xopenex Q 6 hourly TIME SPENT: More than 70 minutes. MTDD
--- NOTE | 2017-05-03 09:34 | PCM.PROG ---
Attending Provider: ATTENDING PROVIDER: Dr. DUNG GRIFFIN This patient is seen with Erin Bergman, Nurse Practitioner. DATE OF SERVICE: 05/03/17 SUBJECTIVE: This 76 year old WHITE/ F was hospitalized 04/26/17. The patient is sitting in the chair, alert. She is ready to go home. She has been up and about eating well, no wheezing today. REVIEW OF SYSTEMS: CONSTITUTIONAL: No night sweats. No fatigue, malaise, lethargy. No fever or chills. HEENT: Eyes: No visual changes. No eye pain. No eye discharge. ENT: No runny nose. No epistaxis. No sinus pain. No odynophagia. No congestion. RESPIRATORY: Positive for cough and congestion. No hemoptysis. No shortness of breath. CARDIOVASCULAR: No angina symptoms. No CHF symptoms. No atypical chest pain for CAD. No palpitations. No orthopnea.. GASTROINTESTINAL: No abdominal pain. No nausea or vomiting. No diarrhea or constipation. No hematemesis. No hematochezia. GENITOURINARY: No urgency. No frequency. No dysuria. No hematuria. No obstructive symptoms. No discharge. No pain. No significant abnormal bleeding. MUSCULOSKELETAL: No musculoskeletal pain; no joint swelling. NEUROLOGICAL: Awake, alert, oriented to time, place and person. No headache. No neck pain. No syncope. No seizures. No dizziness. PSYCHIATRIC: Not anxious. No depression. No suicidal thoughts. No homicidal thoughts. SKIN: No rash. No lesions. No wounds. ENDOCRINE: No unexplained weight loss. No weight gain. HEMATOLOGIC/LYMPHATIC: No anemia. No purpura. No petechiae. No prolonged or excessive bleeding. No palpable lymph nodes. PHYSICAL EXAMINATION: GENERAL: The patient is awake, alert and oriented, sitting in bed in no distress. VITAL SIGNS: Temperature 96.7 F, Pulse 69, Respiratory Rate 20, BP 141/78, Pulse Ox 92% HEENT: Head normocephalic, atraumatic. Eyes: Extraocular muscles are intact. Pupils are equal, round and reactive to light and accommodation. Ears: No lesions. Nose appeared normal. Throat: No exudate or erythema. NECK: Supple. No JVD, no carotid bruit. No lymphadenopathy or thyromegaly. LUNGS: Diminished breath sounds. Clear to auscultation. Percussion note normal. Chest symmetrical. HEART: S1, S2, no S3. No murmurs. No cyanosis or clubbing. No ascites. Pulses: Dorsalis pedis and posterior tibial pulses +1 to +2 both sides. ABDOMEN: Soft. Non-tender. Bowel sounds active. No CVA tenderness. No mass felt. EXTREMITIES: No edema. Full range of motion of all extremities, equal. NEUROLOGIC: No focal deficit. Cranial nerves II through XII are grossly intact. No headache, no double vision or headache. SKIN: Not dry. Intact. Turgor-normal. LYMPHATIC: No palpable lymph nodes/no lymphedema. MUSCULOSKELETAL: Normal joints with no swelling. Muscle tone is normal. LAB REVIEW: 05/03/17 05:55 05/03/17 05:55 05/03/17 05:55: Sodium 142, Potassium 3.4 L, Chloride 98, Carbon Dioxide 35 H, Anion Gap 12.4, BUN 20 H, Creatinine 0.72, Estimated GFR (MDRD) 79.00, BUN/ Creatinine Ratio 27.77, Glucose 114, Calcium 8.6, Total Bilirubin 0.6, AST 19, ALT 33, Alkaline Phosphatase 49 L, Total Protein 5.9, Albumin 3.1 L, Globulin 2.8, Albumin/Globulin Ratio 1.11 05/03/17 05:55: WBC 9.76, RBC 4.02 L, Hgb 11.8 L, Hct 36.3 L, MCV 90.3, MCH 29.4 , MCHC 32.5, RDW Coeff of Tala 14.2, Plt Count 177, Immature Gran % (Auto) 3.7, Neut % (Auto) 75.6, Lymph % (Auto) 14.7, [place] % (Auto) 5.4, Eos % (Auto) 0.2, Baso % (Auto) 0.4, Immature Gran # (Auto) 0.4, Neut # 7.4 H, Lymph # 1.4, [place] # 0.5, Eos # 0.0, Baso # 0.0 ASSESSMENT: 1. INFLUENZA A 2. ACUTE BRONCHITIS 3. SHORTNESS OF BREATH, IMPROVING 4. LEG EDEMA 5. ASTHMA PLAN: 1. Use inhaler three times a day 2. Levaquin 500 p.o. times 6 more days 3. Prednisone 20 mg b.i.d. for 2 more days then 10 mg b.i.d. for four days 4. Continue Tussionex for cough 5. D/C home 6. Will see in office next week 7. Advised to stay in 8. Extra 20 mEq of potassium before discharge Plan and coordination of the patient's care discussed in the presence of Punch Machine Hand and nurse. CONDITION: Stable SCRIBED BY: ELIZABETH LYNN Offbearer scribed while in presence of service performed by Dr. Griffin/Erin Bergman APRN on 05/03/17 ([id number])
--- NOTE | 2017-05-03 09:37 | PN ---
DATE OF SERVICE: 04/30/17 SUBJECTIVE: 76 year old white female hospitalized with acute bronchitis/pneumonitis and pleuritic pain. The patient condition has steadily improved. She has mild wheeze but a lot better and good air entry. REVIEW OF SYSTEMS: CONSTITUTIONAL: No night sweats. Fatigue and tired but less than what she was. No fever or chills. HEENT: Eyes: No visual changes. No eye pain. No eye discharge. ENT: No runny nose. No epistaxis. No sinus pain. No sore throat. No odynophagia. No congestion. RESPIRATORY: No cough, no congestion. No hemoptysis. No shortness of breath. CARDIOVASCULAR: No angina symptoms. No CHF symptoms. No atypical chest pain for CAD. No palpitations. No orthopnea. GASTROINTESTINAL: No abdominal pain. No nausea or vomiting. No diarrhea or constipation. No hematemesis. No hematochezia. Appetite is improving. GENITOURINARY: No urgency. No frequency. No dysuria. No hematuria. No obstructive symptoms. No discharge. No pain. No significant abnormal bleeding. MUSCULOSKELETAL: No musculoskeletal pain; no joint swelling. NEUROLOGICAL: No headache. No neck pain. No syncope. No seizures. No dizziness. PSYCHIATRIC: Not anxious. No depression. No suicidal thoughts. No homicidal thoughts. SKIN: No rash. No lesions. No wounds. ENDOCRINE: No unexplained weight loss. No weight gain. HEMATOLOGIC/LYMPHATIC: No anemia. No purpura. No petechiae. No prolonged or excessive bleeding. No palpable lymph nodes. PHYSICAL EXAMINATION: GENERAL: The patient is oriented to time, place and person. VITAL SIGNS: Temperature 97.8, pulse 80, respiratory rate 24, blood pressure 160/80 and pulse ox 93%. HEENT: Head normocephalic, atraumatic. Eyes: Extraocular muscles are intact. Pupils are equal, round and reactive to light and accommodation. Ears: No lesions. Nose appeared normal. Throat: No exudate or erythema. NECK: Supple. No JVD, no carotid bruit. No lymphadenopathy or thyromegaly. LUNGS: Decreased breath sounds but clear to auscultation. Percussion note normal. Chest symmetrical. HEART: S1, S2, no S3. No murmurs. No cyanosis or clubbing. No ascites. Pulses: Dorsalis pedis and posterior tibial pulses +1 to +2 both sides. ABDOMEN: Soft. Nontender. Bowel sounds active. No CVA tenderness. No mass felt. EXTREMITIES: No edema. Full range of motion of all extremities, equal. NEUROLOGIC: No focal deficit. Cranial nerves II through XII are grossly intact. No headache, no double vision or headache. SKIN: Not dry. Intact. Turgor - normal. LYMPHATIC: No palpable lymph nodes/no lymphedema. MUSCULOSKELETAL: Normal joints with no swelling. Muscle tone is normal. ASSESSMENT: 1. Acute pneumonitis/bronchitis, resolved 2. Dehydration, resolved 3. Pleuritic pain, subsided PLAN: 1. Cardiovascular status is stable 2. Continue NEBS, Antibiotics, Steroids CONDITION: Stable TIME SPENT: More than 30 minutes. Plan and coordination of the patient's care discussed in the presence of nurse. SCARLET
[2017-05-03] MEDS: NEURONTIN PO SCH (10:11)
[2017-05-03] MEDS: LOPRESSOR PO SCH (10:11)
[2017-05-03] MEDS: PREDNISONE PO SCH (10:11)
[2017-05-03] MEDS: TUSSIONEX PO SCH (10:11)
[2017-05-03] MEDS: K-DUR PO SCH (10:12)
[2017-05-03] MEDS: COLACE PO SCH (10:12)
[2017-05-03] MEDS: MIRALAX PO SCH (10:12)
[2017-05-03 10:19] VITALS: BP 128/82; TEMP 98.4
--- NOTE | 2017-05-03 10:53 | PN ---
DATE OF SERVICE: 05/01/17 SUBJECTIVE: 76 year old white female hospitalized with acute bronchitis/pneumonitis, shortness of breath. The patient had bilateral wheezing. REVIEW OF SYSTEMS: CONSTITUTIONAL: No night sweats. No fatigue, malaise, lethargy. No fever or chills. HEENT: Eyes: No visual changes. No eye pain. No eye discharge. ENT: No runny nose. No epistaxis. No sinus pain. No sore throat. No odynophagia. No congestion. RESPIRATORY: No cough, no congestion. No hemoptysis. No shortness of breath. CARDIOVASCULAR: No angina symptoms. No CHF symptoms. No atypical chest pain for CAD. No palpitations. No orthopnea. GASTROINTESTINAL: No abdominal pain. No nausea or vomiting. No diarrhea or constipation. No hematemesis. No hematochezia. GENITOURINARY: No urgency. No frequency. No dysuria. No hematuria. No obstructive symptoms. No discharge. No pain. No significant abnormal bleeding. MUSCULOSKELETAL: No musculoskeletal pain; no joint swelling. NEUROLOGICAL: No headache. No neck pain. No syncope. No seizures. No dizziness. PSYCHIATRIC: Not anxious. No depression. No suicidal thoughts. No homicidal thoughts. SKIN: No rash. No lesions. No wounds. ENDOCRINE: No unexplained weight loss. No weight gain. HEMATOLOGIC/LYMPHATIC: No anemia. No purpura. No petechiae. No prolonged or excessive bleeding. No palpable lymph nodes. PHYSICAL EXAMINATION: VITAL SIGNS: Temperature 97, pulse 84, respiratory 14, blood pressure 125/67 and pulse ox 96%. HEENT: Head normocephalic, atraumatic. Eyes: Extraocular muscles are intact. Pupils are equal, round and reactive to light and accommodation. Ears: No lesions. Nose appeared normal. Throat: No exudate or erythema. NECK: Supple. No JVD, no carotid bruit. No lymphadenopathy or thyromegaly. LUNGS: Mild wheeze but good air entry. Percussion note normal. Chest symmetrical. HEART: S1, S2, no S3. No murmurs. No cyanosis or clubbing. No ascites. Pulses: Dorsalis pedis and posterior tibial pulses +1 to +2 both sides. ABDOMEN: Soft. Nontender. Bowel sounds active. No CVA tenderness. No mass felt. EXTREMITIES: No edema. Full range of motion of all extremities, equal. NEUROLOGIC: No focal deficit. Cranial nerves II through XII are grossly intact. No headache, no double vision or headache. SKIN: Not dry. Intact. Turgor - Good. Hydration status has improved with LYMPHATIC: No palpable lymph nodes/no lymphedema. MUSCULOSKELETAL: Normal joints with no swelling. Muscle tone is normal. LABS: Hgb 12, hct 36, WBC 9,600 normal differential, creatinine 0.7, BUN 20, potassium 3.3. ASSESSMENT: 1. Pneumonitis/bronchitis 2. Dehydration, has resolved. 3. Hemorrhoids with bright red bleeding. The patient has that problem off and on. PLAN: 1. Continue steroids, antibiotics, NEBS 2. Likely the patient will be discharged home tomorrow. 3. She is put on Anucort-HC twice a day 4. She is advised to go to the surgeon, surgical referral declined. TIME SPENT: More than 30 minutes. Plan and coordination of the patient's care discussed in the presence of nurse. SCARLET
--- NOTE | 2017-05-03 11:02 | CM.DICTOOL ---
ADMISSION: 04/26/17 14:25 DISCHARGE: 05/03/17 DATE OF SERVICE: 05/03/17 FINAL DIAGNOSIS INFLUENZA A ACUTE ASTHMATIC BRONCHITIS DEHYDRATION CHRONIC LEG EDEMA CAD HYPERTENSION DYSLIPIDEMIA ANEMIA GOUTH ARTHRITIS FIBROMYALGIA NEUROPATHY DJD SPINE CABG, 3 VESSEL, 07/2007 RIGHT AND LEFT KNEE ARTHROPLASTY, 2000 BACK SURGERY, 2002 HYSTERECTOMY CERVICAL SURGERY SINUS SURGERIES X3 CARPAL TUNNEL RELEASE 04/22/17 - STRESS SESTAMIBI LEFT VENTRICULAR MYOCARDIAL PERFUSION DEMONSTRATES A REGION OF DECREASED ACTIVITY IN THE MID TO DISTAL ANTERIOR WALL EXTENDING TO THE APEX DURING STRESS WHICH IMPROVES AT REST SUGGESTING REVERSIBLE ISCHEMIA. LVEF IS 62% LAST VITALS Temp Pulse Resp BP Pulse Ox 98.4 F 70 18 128/82 97 05/03/17 10:00 05/03/17 10:00 05/03/17 10:00 05/03/17 10:00 05/03/17 10:00 ACTIVE HOME MEDICATIONS Acetaminophen/Hydrocodone Bitart ([place] 7.5-325) 1 tab PO Q6HR PRN PRN Reason: pain Last Admin: 05/01/17 08:47 Dose: 1 tab Atorvastatin Calcium (Lipitor) 40 mg PO QPM [facility] Last Admin: 05/02/17 18:08 Dose: 40 mg Furosemide (Lasix Tab) 40 mg PO QDAC [facility] Last Admin: 05/03/17 05:41 Dose: 40 mg Gabapentin (Neurontin) 600 mg PO QAM [facility] Last Admin: 05/03/17 10:11 Dose: 600 mg Gabapentin (Neurontin) 1,800 mg PO BEDTIME [facility] Last Admin: 05/02/17 21:17 Dose: 1,800 mg Levalbuterol HCl (Xopenex 1.25 Mg) 1 vial NEB RTTID [facility] Last Admin: 05/03/17 04:05 Dose: 1 vial Levothyroxine Sodium (Synthroid) 50 mcg PO QDAC [facility] Last Admin: 05/03/17 05:41 Dose: 50 mcg Loratadine (Claritin) 10 mg PO QPM [facility] Last Admin: 05/02/17 18:08 Dose: 10 mg Metoprolol Tartrate (Lopressor) 25 mg PO QAM [facility] Last Admin: 05/03/17 10:11 Dose: 25 mg Nitroglycerin (Nitrostat) 0.4 mg SL Q5MIN X 3 DOSES PRN PRN Reason: Chest Pain Ondansetron HCl (Zofran 4 Mg/2 Ml) 8 mg IVP Q6HR PRN PRN Reason: Nausea / Vomiting Last Admin: 05/02/17 14:09 Dose: 8 mg Polyethylene Glycol (Miralax) 8.[facility] [facility] [place] Admin: 05/03/17 10:12 Dose: Not Given Potassium Chloride (K-Dur) 20 meq PO QAM [facility] Last Admin: 05/03/17 10:12 Dose: 20 meq Sennosides/Docusate Sodium (Bianca-Colace) 2 tabs PO QAM Zolpidem Tartrate (Ambien) 5 mg PO BEDTIME PRN PRN Reason: sleep Last Admin: 05/01/17 20:03 Dose: 5 mg ALLERGIES duloxetine [From Cymbalta] Adverse Reaction (Verified 04/26/17 20:38) Iodinated Contrast- Oral and IV Dye [Iodinated Contrast Media - IV Dye] Adverse Reaction (Unverified 09/25/13 13:51) iodine Adverse Reaction (Unverified 09/25/13 13:51) Penicillins Adverse Reaction (Unverified 09/25/13 13:51) povidone-iodine [From Betadine] Adverse Reaction (Unverified 09/25/13 13:51) soap [From Betadine] Adverse Reaction (Unverified 09/25/13 13:51) NEW PRESCRIPTIONS: LEVAQUIN 500 MG, TAKE ONE TABLET BY MOUTH DAILY FOR 6 DAYS TUSSIONEX 5 ML, TAKE 5 MLS BY MOUTH TWICE DAILY IF NEEDED FOR COUGHING PREDNISONE 10 MG, TAKE TWO TABLETS (20 MG) BY MOUTH TWICE DAILY FOR 2 DAYS, THEN TAKE ONE TAB (10 MG) BY MOUTH TWICE DAILY FOR 4 DAYS. 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 USE OF STEROIDS LAB REVIEW: 05/03/17 05:55 05/03/17 05:55 05/03/17 05:55: Sodium 142, Potassium 3.4 L, Chloride 98, Carbon Dioxide 35 H, Anion Gap 12.4, BUN 20 H, Creatinine 0.72, Estimated GFR (MDRD) 79.00, BUN/ Creatinine Ratio 27.77, Glucose 114, Calcium 8.6, Total Bilirubin 0.6, AST 19, ALT 33, Alkaline Phosphatase 49 L, Total Protein 5.9, Albumin 3.1 L, Globulin 2.8, Albumin/Globulin Ratio 1.11 05/03/17 05:55: WBC 9.76, RBC 4.02 L, Hgb 11.8 L, Hct 36.3 L, MCV 90.3, MCH 29.4 , MCHC 32.5, RDW Coeff of Tala 14.2, Plt Count 177, Immature Gran % (Auto) 3.7, Neut % (Auto) 75.6, Lymph % (Auto) 14.7, [place] % (Auto) 5.4, Eos % (Auto) 0.2, Baso % (Auto) 0.4, Immature Gran # (Auto) 0.4, Neut # 7.4 H, Lymph # 1.4, [place] # 0.5, Eos # 0.0, Baso # 0.0 PLAN: DISCHARGE HOME TODAY RETURN TO SEE DR. GRIFFIN IN HIS OFFICE ON 05/10/17 RESUME YOUR HOME MEDICATIONS PER LIST PROVIDED BY THE NURSING STAFF NEW PRESCRIPTIONS LEVAQUIN 500 MG, TAKE ONE TABLET BY MOUTH DAILY FOR 6 DAYS TUSSIONEX 5 ML, TAKE 5 MLS BY MOUTH TWICE DAILY IF NEEDED FOR COUGHING PREDNISONE 10 MG, TAKE TWO TABLETS (20 MG) BY MOUTH TWICE DAILY FOR 2 DAYS, THEN TAKE ONE TAB (10 MG) BY MOUTH TWICE DAILY FOR 4 DAYS. TAKE THIS MEDICATION WITH FOOD USE YOUR HOME INHALER THREE TIMES DAILY UNTIL FURTHER INSTRUCTED OTHERWISE ACTIVITY GET PLENTY OF REST AT HOME FOR AT LEAST ONE WEEK. GRADUALLY INCREASE YOUR ACTIVITY LEVEL ACCORDING TO YOUR TOLERATION DIET HEALTHY HEART TOLERATED SUMMARY THE PATIENT IS ALERT AND ORIENTED X3. SHE CURRENTLY RESIDES AT HOME ALONE. SHE IS INDEPENDENT WITH ADL'S. SHE HAS REQUIRED NO DME, HOME HEALTH OR HOMEMAKING SERVICES. SHE DESIRES TO RETURN HOME AFTER DISCHARGE. THE SKIN TURGOR IS INTACT AND WITHOUT DECUBITUS ULCERS. THE LOWER EXTREMITIES ARE MILDLY EDEMATOUS CHRONICALLY AND SHOW IMPROVEMENT WITH ELEVATION. HYDRATION AND NUTRITIONAL STATUS ARE IMPROVED A GREAT DEAL FROM ADMISSION. MR. CERDA IS AWARE AND AGREEABLE FOR DISCHARGE HOME TODAY. CURRENT CODE STATUS FULL CODE RUFINA BERNABE APRN DUNG GRIFFIN M.D.
--- NOTE | 2017-05-05 13:00 | PN ---
DATE OF SERVICE: 05/02/17 SUBJECTIVE: The patient was hospitalized with acute bronchitis, pneumonitis. Today she is has more wheezing on physical examination. The patient was seen and examined with the nurse practitioner. CONDITION: Improving. She will need one more day. SCARLET
--- NOTE | 2017-05-05 13:03 | PN ---
DATE OF SERVICE: 05/03/17 SUBJECTIVE: The patient was seen today with the nurse practitioner. She is feeling a lot better. She is up and about with practically not much wheezing like yesterday. Her vitals are stable. She is afebrile. The patient's hemoglobin is 11.8, WBC 9,700. The patient will be discharged home on Levaquin , Prednisone and Tussionex. CONDITION: Stable. MTDD
--- NOTE | 2017-05-05 13:11 | PN ---
BILLING 04/26/17 LEVEL 5 04/27/17 INTERMEDIATE 04/28/17 INTERMEDIATE 04/29/17 INTERMEDIATE 04/30/17 INTERMEDIATE 05/01/17 BRIEF 05/02/17 BRIEF 05/03/17 D MTDD
--- NOTE | 2017-05-15 15:30 | PN ---
DATE OF SERVICE: 04/27/17 SUBJECTIVE: 76-year-old white female hospitalized with cough, congestion, pleuritic type of pain. The patient had Influenza A. She is being treated with IV antibiotics, steroids. Overall, skin turgor has improved. She is eating better. No nausea. Condition is improving. PLAN: Continue nebs treatment. The patient was seen and examined with the nurse practitioner. TIME SPENT: More than 30 minutes. Plan and coordination of the patient's care discussed in the presence of nurse. SCARLET
--- NOTE | 2017-05-20 13:59 | DS ---
DATE OF SERVICE: 05/03/17 FINAL DIAGNOSIS: 1. INFLUENZA A 2. ACUTE ASTHMATIC BRONCHITIS 3. DEHYDRATION 4. CHRONIC LEG EDEMA 5. CORONARY ARTERY DISEASE 6. HYPERTENSION 7. DYSLIPIDEMIA 8. ANEMIA 9. GOUTY ARTHRITIS 10. FIBROMYALGIA 11. NEUROPATHY 12. DJD SPINE 13. CABG 3 VESSEL 07/2007 14. RIGHT AND LEFT KNEE ARTHROPLASTY, 2000 15. BACK SURGERY, 2002 16. HYSTERECTOMY 17. CERVICAL SURGERY 18. SINUS SURGERIES TIMES THREE 19. CARPAL TUNNEL RELEASE 20. 04/22/17 STRESS SESTAMIBI - LEFT VENTRICULAR MYOCARDIAL PERFUSION DEMONSTRATES A REGION OF DECREASED ACTIVITY IN THE MID TO DISTAL ANTERIOR WALL EXTENDING TO THE APEX DURING STRESS WHICH IMPROVES AT REST SUGGESTING REVERSIBLE ISCHEMIA, LVEF 62%. LAST V/S: Temperature 98.4, pulse 70, respiratory rate 18, BP 128/82, pulse ox 97. DISCHARGE INSTRUCTIONS: Followup appointment with Dr. Huang in his office on 05/10/17. MEDICATIONS AT DISCHARGE: [place] 7.5-325 one tab p.o. q.6hr p.r.n. Lipitor 40 mg p.o. q.p.m. NASRIN Lasix 40 mg p.o. q.d a.c. Neurontin 600 mg p.o. q a.m. NASRIN Neurontin 1800 mg p.o. bedtime NASRIN Xopenex 1.25 mg one vial neb RT t.i.d. NASRIN Synthroid 50 mcg p.o. q.d a.c. NASRIN Claritin 10 mg p.o. q. p.m. NASRIN Lopressor 25 mg p.o. q.a.m. NASRIN Nitrostat 0.4 mg SL q.5 min times three doses p.r.n. Zofran 8 mg IVP q.6hr p.r.n. Miralax 8.5 gm p.o. q.a.m. NASRIN K-Dur 20 mEq p.o. q.a.m. NASRIN Bianca-Colace two tabs p.o. q.a.m. Ambien 5 mg p.o. bedtime p.r.n. NEW PRESCRIPTIONS: Levaquin 500 mg take one tablet by mouth daily for 6 days Tussionex 5 mL take 5 mL by mouth twice daily if needed for coughing Prednisone 10 mg take two tablets 20 mg by mouth twice daily for 2 days then take one tab 10 mg by mouth twice daily for 4 days. Take this medication with food. Use your home inhaler three times daily until further instructed otherwise DIET INSTRUCTIONS: Healthy Heart as tolerated. ACTIVITY: Get plenty of rest at home for at least one week. Gradually increase your activity level according to your toleration. SMOKING: Nonsmoker DISEASE SPECIFIC EDUCATION: Influenza and prevention of spread Dehydration Follow up Home medications New medications Effects of nursing home use of steroids HOSPITAL COURSE: This is a 76-year-old white female with a history of COPD and asthma, who presented to our office complaining of coughing for several days. She had had a low grade fever and was achy. Chest x-ray revealed bronchitis. She was extremely wheezing and short of breath on admission. She was admitted, placed on IV Solu-Medrol at 125 mg IV q.8hr along with Levaquin 500 mg IV daily. She was started on Xopenex neb treatments. She did not rest any within the first 24 hours. She was started on Tussionex 5 mL b.i.d. It has taken her several days for her wheezing to improve. She has remained short of breath until the past 36 hours. She had been extremely short of breath with exertion, has been requiring oxygen with 02 saturations going below 90% at rest without oxygen. Again, she does have a history of asthma and chronic lung disease. For the past 36 hours the wheezing has improved. She has been sleeping through the night. She has been up and about walking around with minimal shortness of breath. She did have some leg swelling the third day after admission. She has Lasix 20 mg p.r.n. and this was given IV and leg swelling seems to have resolved. She has been eating 100% of her meals. She has been afebrile today on day of discharge. Temperature 96.7, heart rate 69, respirations 20, BP 140/78 and pulse ox 92%. She will be discharged home with Tussionex 5 mL b.i.d. for cough as needed. Levaquin 500 mg p.o. for the next 6 days and Prednisone 20 mg b.i.d. times two days and 10 mg b.i.d. times four days. She has a ProAir inhaler that she is to use at home at least three times a day until her cough resolves. Her potassium was low today at 3.4. Will give her 40 mEq before she leaves. She does already take 20 mEq with her normal daily meds. She is discharged in stable condition. She lives by herself. She states she feels ready to go home. Again, she has been eating well, up and about and she is no longer wheezing. We will followup with her in the office later on this week. TIME SPENT: More than 60 minutes. SCARLET
== END 2017-05-03 11:50 | disposition home or self-care (01) | DRG 194 ==
LOC: MEDSURG B 14:25
PROVIDERS: ADMIT Internal Medicine; ATTEND Internal Medicine
DX: J10.1 Influenza due to other identified influenza virus with other respiratory manifestations (principal); J44.0 Chronic obstructive pulmonary disease with (acute) lower respiratory infection; J20.9 Acute bronchitis, unspecified; R06.02 Shortness of breath; E86.0 Dehydration; I25.10 Atherosclerotic heart disease of native coronary artery without angina pectoris; I10 Essential (primary) hypertension; E78.5 Hyperlipidemia, unspecified; D64.9 Anemia, unspecified; M10.9 Gout, unspecified; M79.7 Fibromyalgia; G62.9 Polyneuropathy, unspecified; M47.9 Spondylosis, unspecified; R11.0 Nausea; R60.0 Localized edema; K64.9 Unspecified hemorrhoids; Z95.1 Presence of aortocoronary bypass graft; Z79.899 Other long term (current) drug therapy
CPT/HCPCS: 36415; 80053; 81001; 85025; 87070; 87502; 93005; 93010; 94640

== ENCOUNTER 2017-07-12 11:25 | Outpatient (CLI) | payer OTHER ==
--- NOTE | 2017-07-13 09:09 | MAMMO ---
EXAM: Digital screening mammogram with tomosynthesis HISTORY: Screening COMPARISON: 06/10/2016 FINDINGS: Digital MLO and CC views of the right and left breast were performed. Tomosynthesis was p erformed. Computer aided detection utilized. There are scattered fibroglandular densities. Benign bi lateral calcifications. Left breast biopsy clip. There is no evidence for mass, asymmetry, distortio n, or suspicious calcifications in either breast. IMPRESSION: 1. No evidence of malignancy in the right or left breast. 2. Annual screening mammogram is recommended in one year. BIRADS category 2, benign
== END 2017-07-12 11:26 | disposition home or self-care (01) ==
LOC: RAD 11:25
PROVIDERS: ATTEND Internal Medicine
DX: Z12.31 Encounter for screening mammogram for malignant neoplasm of breast (principal)
CPT/HCPCS: 77067

== ENCOUNTER 2018-03-14 07:34 | Outpatient (CLI) | payer OTHER ==
--- NOTE | 2018-03-14 08:53 | CT ---
EXAM: CT of the cervical spine without contrast History: Right arm pain and neck pain. Technique: Multiplanar CT images through the cervical spine were obtained without the administration of IV contrast Findings: The visualized upper lungs are free of consolidation. There is some debris seen within th e visualized esophagus. The visualized airway remains patent. Atherosclerotic vascular calcificatio ns. Surgical clips are seen within the neck. No acute fracture or subluxation of the cervical spine. No prevertebral soft tissue swelling. Prede ntal space is not widened. Moderate to severe disc space narrowing at C5-6 and C6-7 with endplate sc lerosis and prominent osteophyte formation. Mild to moderate disc space narrowing seen elsewhere. C2-3: No significant bony central canal stenosis. Mild to moderate bilateral bony neural foraminal narrowing secondary to uncovertebral and facet hypertrophy. C3-4: No significant bony central canal stenosis. Moderate left and mild to moderate right bony brigitte ral foraminal narrowing secondary to uncovertebral and facet hypertrophy. C4-5: Right paracentral disc protrusion effacing anterior thecal sac with moderate central canal rhea nosis. Moderate to severe left and moderate right bony neural foraminal narrowing secondary to uncove rtebral and facet hypertrophy. C5-6: Small posterior disc osteophyte complex with mild bony central canal stenosis. Moderate to se sunday bilateral bony neural foraminal narrowing secondary to uncovertebral and facet hypertrophy. C6-7: Small posterior disc osteophyte complex with mild bony central canal stenosis. Moderate bilat eral bony neural foraminal narrowing secondary to uncovertebral and facet hypertrophy. Impression: 1. No acute osseous abnormality of the cervical spine. 2. Moderate to severe degenerative disc disease at C5-6 and C6-7. 3. Level by level analysis as detailed above with moderate central canal stenosis at C4-5 and modera te to severe bilateral bony neural foraminal narrowing at C5-6. Consider correlation with MRI.
--- NOTE | 2018-03-14 08:59 | DI ---
EXAM: Three views of the right shoulder. History: Right shoulder pain. Findings: No acute fracture or dislocation. Sternotomy wires. Artificial heart valves are seen. S urgical clips are seen within the neck. Osteopenia. Mild narrowing of the right AC joint and right glenohumeral joint. Impression: 1. No acute osseous abnormality. 2. Mild arthritis
== END 2018-03-14 07:35 | disposition home or self-care (01) ==
LOC: RAD 07:34
PROVIDERS: ATTEND Internal Medicine
DX: M25.511 Pain in right shoulder (principal); M54.2 Cervicalgia

== ENCOUNTER 2018-06-27 16:29 | Outpatient (CLI) | payer OTHER | END 2018-06-27 16:30 | disposition home or self-care (01) | LOC: LAB 16:29 | PROVIDERS: ATTEND Ophthalmology Retina Specialist | DX: H49.21 Sixth [abducent] nerve palsy, right eye (principal) | CPT/HCPCS: 36415; 85651; 86140 ==

== ENCOUNTER 2018-07-03 12:43 | Outpatient (CLI) | payer OTHER ==
--- NOTE | 2018-07-03 13:55 | US ---
EXAM: Bilateral carotid artery Doppler History: Dizziness. Technique: Multiple sonographic images through the bilateral internal carotid arteries were obtained . Color duplex Doppler was used to interrogate vascular flow. Findings: The right ICA peak systolic velocity is within normal limits measuring 69 cm/sec. The right ICA/cca PSV ratio is normal at 1.0. The right vertebral artery is patent and demonstrates antegrade flow. The left ICA peak systolic velocity is within normal limits measuring 59 cm/sec. The left ICA/cca PS V ratio is normal at 0.70. The left vertebral artery is patent and demonstrates antegrade flow. Lebron scale images demonstrate mild to moderate plaque buildup within the bilateral internal carotid a rteries. Impression: No significant hemodynamic stenosis within the bilateral internal carotid arteries.
--- NOTE | 2018-07-03 14:36 | CT ---
EXAM: CT of the head without contrast History: Dizziness, right palsy. Comparison: Head CT 12/31/2011 Technique: Multiplanar CT images through the head were obtained without the administration of IV con trast Findings: Moderate mucosal thickening and opacification of the paranasal sinuses is increased compar ed to the prior study. Mastoid air cells are clear in general. No acute calvarial abnormalities. Intracranially the ventricular and cisternal spaces are normal in size, shape and configuration for a patient of this age. No dominant mass or midline shift. No hydrocephalous. No acute intracranial hemorrhage or abnormal extraaxial fluid collections. Impression: 1. No acute intracranial process. 2. Paranasal sinusitis
== END 2018-07-03 12:44 | disposition home or self-care (01) ==
LOC: RAD 12:43
PROVIDERS: ATTEND Internal Medicine
DX: R42 Dizziness and giddiness (principal); H49.21 Sixth [abducent] nerve palsy, right eye

== ENCOUNTER 2018-07-11 11:16 | Outpatient (CLI) | payer OTHER | END 2018-07-11 11:17 | disposition home or self-care (01) | LOC: LAB 11:16 | PROVIDERS: ATTEND Ophthalmology Retina Specialist | DX: H49.21 Sixth [abducent] nerve palsy, right eye (principal) | CPT/HCPCS: 36415; 85651; 86140 ==

== ENCOUNTER 2018-08-15 08:15 | Outpatient (CLI) ==
--- NOTE | 2018-08-16 08:47 | MAMMO ---
EXAM: Digital screening mammogram with tomosynthesis HISTORY: Screening COMPARISON: 07/12/2017 FINDINGS: Digital MLO and CC views of the right and left breast were performed. Tomosynthesis was performed. Computer aided detection utilized. There are scattered fibroglandular densities. Benign bilateral calcifications. Biopsy clip left breast. There is no evidence for mass, asymmetry, disto rtion, or suspicious calcifications in either breast. IMPRESSION: 1. No evidence of malignancy in the right or left breast. 2. Annual screening mammogram is recommended in one year. BIRADS category 2, benign
== END 2018-08-15 08:16 | disposition home or self-care (01) ==
LOC: RAD 08:15
PROVIDERS: ATTEND Internal Medicine
DX: Z12.31 Encounter for screening mammogram for malignant neoplasm of breast (principal)

== ENCOUNTER 2023-07-23 11:59 | Inpatient (IN) ==
[2023-07-23 12:36] LABS: HEMOGLOBIN 11.8 g/dl (12.0-16.0); MEAN CORPUSCULAR HEMOGLOBIN 29.9 pg (27.0-31.0); MEAN CORPUSCULAR HGB CONC 31.1 (31.8-35.4); MEAN CORPUSCULAR VOLUME 96.4 fl (81.0-99.0); PLATELET COUNT 146 10^3/uL (140-440); RDW COEFFICIENT OF VARIATION 14.2 % (11.6-14.8); RED BLOOD COUNT 3.94 10^6/ul (4.20-5.40); WHITE BLOOD COUNT 22.34 K/ul (4.6-10.2)
--- NOTE | 2023-07-23 12:38 | ED.PDOC ---
General ED Provider: Dr. SAKINA FONTAINE MD Chief Complaint: Fall Stated Complaint: 83 yo female with hx of COPD coming for a fall. patient was feeling dizzy and short of breath and fell yesterday and hit her head. Patient also reports fever yesterday along with dry cough. No headache, nausea, vomitin g, changes in bowel or urine. Time Seen by Provider: 07/23/23 12:01 Information Source: Patient and EMT Primary Care Provider: DUNG GRIFFIN MD Nursing and Triage Documentation Reviewed and Agree: Yes What is Opioid Naive?: *Opioid Naive implies the patient is not already taking opioids or not chronically receiving opioids on a daily basis. *PRN dosing is not "usually" associated with tolerance. *Patients are at higher risk of over-sedation and aspiration. What is Opioid Tolerant?: *Opioid Tolerance implies less than the expected response to an opioid. *Acquired tolerance is defined by the patient taking 60mg of oral morphine daily (or equianalgesic dose of another opioid) for 1 week or more. *Often associated with chronic pain. *May take more than usual dose to achieve desired pain control. Review of Systems Review Of Systems Constitutional: Reports Fever All Other Systems: Reviewed and Negative PFSH Family History FATHER Cancer Social History (Updated 06/30/23 @ 08:44 by TRUNG FLORES) Smoking and tobacco status: Never smoker Alcohol intake: never Substance use type: does not use Special nova needs: No Agree to transfusion: Yes Adopted: No Caregiver/support person: No Foster care: No Household members: none Housing: house Marital status: W / Number of children: 0 service: No MCFP: No Current occupational status: retired History of recent travel: No Do you think of yourself as: straight/heterosexual Current gender identity: female Seatbelt use: always Helmet use: No Drives intoxicated or rides with intoxicated hire car driver: No Water heater temperature set < 120 degrees: Yes Working smoke detector in home: Yes Fire extinguisher in home: Yes Carbon monoxide detector in home: Yes Surgical History History of total bilateral knee replacement Arabella Z96.653 - Presence of artificial knee joint, bilateral (ICD-10) Hx of CABG 2007 Z95.1 - Presence of aortocoronary bypass graft (ICD-10) History of back surgery 2002 Z98.890 - Other specified postprocedural states (ICD-10) Female Reproductive History Menstrual Hx Hysterectomy: Yes Physical Exam Physical Exam Appearance: Reports Well-appearing Ill-appearing: Not Applicable Pain Distress: Not Applicable Eyes: Reports SYDNI and EOMI Neck: Nonsupple Respiratory: Reports Airway patent and Breath sounds diminished (RLL); Denies Wheezes Cardiovascular: Reports Pulses normal, No rub, No murmur and Irregular rhythm GI/: Reports Soft, Nontender, No masses and Bowel sounds normal Musculoskeletal: Reports Normal strength and ROM intact Skin: Reports Warm and Normal color Neurological: Reports Sensation intact and Motor intact Interpretation EKG Interpretation EKG Interpretation By: ED Physician Time of EKG #1: 12:41 Rate: Normal Rhythm: Other (atrial fibrillation) Ectopy: None Macdoel: Left Interpretation: RBBB, no signs of acute ischemia Time of EKG #2: 14:36 Rate: Normal Rhythm: Other (afib) Ectopy: None Macdoel: Left EKG Interpretation: RBBB no signs of acute ischemia Course Course Orders, Labs, Meds: Orders Category Date Time Status EKG-(ED ONLY) Stat CARDIO 07/23/23 12:20 Ordered NEBULIZER TREATMENT Stat CARDIO 07/23/23 12:17 Ordered CBC W/ AUTO DIFF Stat LAB 07/23/23 12:18 Ordered CMP [COMPREHENSIVE METABOLIC PANEL] Stat LAB 07/23/23 12:18 Ordered COVID [SARS COV-2 RNA RAPID MANNY] Stat LAB 07/23/23 Uncollected FLU A & B MOLECULAR [FLU A/B MOLECULAR] Stat LAB 07/23/23 12:29 Uncollected Ipratropium/Albuterol Neb [Duoneb] Meds 07/23/23 12:16 Discontinued 3 ml NEB ONCE STA Ketorolac Tromethamine [Toradol] Meds 07/23/23 12:16 Discontinued 15 mg IVP ONCE STA Methylprednisolone Sod Succ/Pf [Solu-Medrol 125 mg] Meds 07/23/23 12:16 Discontinued 125 mg IVP ONCE ONE CT HEAD W/O CONTRAST Stat RADS 07/23/23 12:15 Ordered CXR [CHEST, 1V AP ONLY] Stat RADS 07/23/23 12:18 Ordered Medications Discontinued Medications Generic Name Dose Route Start Last Admin Trade Name Anabel PRN Reason Stop Dose Admin Albuterol/Ipratropium 3 ml 07/23/23 12:16 Ipratropium/Albuterol Vial.Neb NEB 07/23/23 12:17 ONCE STA Ketorolac Tromethamine 15 mg 07/23/23 12:16 Ketorolac Tromethamine 15 Mg/Ml Vial IVP 07/23/23 12:17 ONCE STA Methylprednisolone Sodium Succinate 125 mg 07/23/23 12:16 Methylprednisolone Sod Succ/Pf 125 Mg/2 Ml Vial IVP 07/23/23 12:17 ONCE ONE Vital Signs: Temp Pulse Resp BP Pulse Ox 07/23/23 12:01 97.7 F 94 20 109/48 L 91 L CBC showing leukocytosis with left shift chest x-ray showing right-sided pneumonia blood cultures were obtained patient was given Levaquin 500 milligrams IV CAT scan of the head no acute intracranial findings EKG showed A-fib which is chronic patient is on metoprolol anticoagulation contraindicated due to history of GI bleed. Called hospitalist on-call Aayush, discussed the patient case with her and she agreed to admit the patient for further IV antibiotics for pneumonia Discharge Plan Discharge Prescriptions: No Action nitroglycerin 0.4 mg tablet, sublingual See Rx Instructions .ROUTE .COMPLEX Qty: 25 1RF Dose Instruction: DISSOLVE 1 TABLET ON THE TONGUE NEEDED FOR ANGINA Rx Instructions: DISSOLVE 1 TABLET ON THE TONGUE NEEDED FOR ANGINA escitalopram oxalate 20 mg tablet See Rx Instructions .ROUTE .COMPLEX Qty: 90 1RF Dose Instruction: TAKE 1 TABLET DAILY Rx Instructions: TAKE 1 TABLET DAILY zolpidem [Ambien] 5 mg tablet 5 mg PO BEDTIME PRN (Reason: Insomnia) Qty: 16 2RF hydrocodone-acetaminophen 7.5-325 mg tablet 1 tab PO QID PRN (Reason: Severe Pain) Qty: 120 0RF ondansetron HCl 4 mg tablet 4 mg PO Q6HR PRN (Reason: Nausea / Vomiting) Qty: 9 0RF pantoprazole [Protonix] 40 mg tablet,delayed release (DR/EC) 40 mg PO QDAY Qty: 90 1RF polyethylene glycol 3350 [Miralax] 17 GM powder in packet 0.5 cap PO QAM potassium chloride 10 mEq tablet,ER particles/crystals 10 meq PO DAILY gabapentin 600 mg tablet 600 mg PO TID metolazone 2.5 mg tablet 2.5 mg PO .3 times week PRN (Reason: fluid) cholecalciferol (vitamin D3) 125 mcg (5,000 unit) capsule 5,000 unit PO DAILY aspirin 81 MG tablet,delayed release (DR/EC) 81 mg PO QPM loratadine 10 MG tablet 10 mg PO QPM allopurinol 100 mg tablet 100 mg PO BID Qty: 180 1RF atorvastatin [Lipitor] 40 mg tablet 40 mg PO QPM Qty: 90 1RF furosemide [Lasix] 40 mg tablet 40 mg PO QAM Qty: 90 1RF levothyroxine [Synthroid] 50 mcg tablet 50 mcg PO QDAC Qty: 90 1RF metoprolol tartrate 25 mg tablet 25 mg PO QAM Qty: 90 1RF potassium chloride [Klor-Con M20] 20 mEq tablet,ER particles/crystals 20 meq PO QAM Qty: 90 1RF codeine-guaifenesin 10-100 mg/5 mL liquid 5 ml PO Q6H PRN (Reason: cough) Qty: 120 0RF albuterol sulfate 2.5 mg /3 mL (0.083 %) solution for nebulization 2.5 mg inhalation Q4-6H PRN albuterol sulfate [Ventolin HFA] 90 mcg/actuation HFA aerosol inhaler 2 puff inhalation Q6H PRN (Reason: shortness of breath or wheezing) Qty: 18 3RF Did you review [place] [employer] [employer] for ALL controlled substances?: Not Applicable ED Provider: SAKINA FONTAINE Physician Progress Note: []
[2023-07-23] MEDS: SOLU-MEDROL 125 MG IVP ONE (12:39)
[2023-07-23] MEDS: TORADOL IVP STA (12:39)
[2023-07-23] MEDS: DUONEB NEB STA (12:44)
[2023-07-23 12:48] LABS: ALANINE AMINOTRANSFERASE 23.1 U/L (0-35); ALBUMIN 4.2 g/dL (3.5-5.0); ALKALINE PHOSPHATASE 62.3 U/L (53-141); ASPARTATE AMINO TRANSFERASE 40.1 U/L (14-36); BILIRUBIN,TOTAL 1.12 mg/dL (0.2-1.3); BLOOD UREA NITROGEN 25.5 mg/dL (7-17); CALCIUM 9.4 mg/dL (8.4-10.2); CARBON DIOXIDE 30.8 mmol/L (22-30.0); CHLORIDE 98.5 mmol/L (98-107); CREATININE 0.86 mg/dL (0.60-1.30); GLUCOSE 111.1 mg/dL (74-106); POTASSIUM 3.82 mmol/L (3.5-5.1); SODIUM 136.7 mmol/L (134.5-145); TOTAL PROTEIN 7.24 g/dL (6.3-8.2)
[2023-07-23 12:56] LABS: ANISOCYTOSIS NOT PRESENT (NOT PRESENT)
[2023-07-23 13:16] LABS: MOLECULAR FLU A NEGATIVE BY NAAT (NEGATIVE); MOLECULAR FLU B NEGATIVE BY NAAT (NEGATIVE); SARS COV-2 RNA RAPID NAAT NEGATIVE (NEGATIVE)
--- NOTE | 2023-07-23 13:17 | CT ---
EXAM: CT BRAIN WITHOUT CONTRAST HISTORY: Fall, head trauma TECHNIQUE: Multi-slice sequential. Coronal and sagital reformations were performed. COMPARISON: 07/03/2018 FINDINGS: There is no acute intracranial hemorrhage, extraxial fluid collection, mass affect, or midlineshift.T he ventricles are normal in size.The alcazar-white matter interface is maintained.The basal cisterns are patent.Extensive mucosal thickening is seen throughout the bilateral paranasal sinuses with opacific ation of the ethmoid sinuses. Mastoid air cells are well aerated.The calvarium is unremarkable. :::::::::::::::::::::::::::::: IMPRESSION: No acute intracranial findings. Extensive bilateral sinus disease. :::::::::::::::::::::::::::::: All CT scans are performed using dose optimization techniques as appropriate to the performed exam an d include at least one of the following: Automated exposure control, adjustment of the mA and/or kV according t o size, and the use of iterative reconstruction technique.
[2023-07-23 13:49] LABS: BILIRUBIN,URINE Negative (NEGATIVE); CLARITY,URINE Clear (CLEAR); COLOR,URINE Yellow (YELLOW); GLUCOSE, URINE (UA) Negative (NEGATIVE); KETONES,URINE Negative (NEGATIVE); LEUKOCYTE ESTERASE ,URINE Negative (NEGATIVE); NITRITE,URINE Negative (NEGATIVE); PH,URINE 5.5 (5-9); PROTEIN,URINE 1+ (NEGATIVE); URINE, BLOOD Negative (NEGATIVE); UROBILINOGEN,URINE 0.2 (0.2)
--- NOTE | 2023-07-23 13:54 | DI ---
EXAM: FRONTAL VIEW OF THE CHEST. HISTORY: Cough COMPARISON: 05/02/2017 FINDINGS: Cardiac silhouette is borderline enlarged. Stable. Postoperative changes mediastinum. Basilar consolidating infiltrate. Questionable retrocardiac infiltrate also demonstrated on the left . Findings are superimposed on chronic appearing interstitial/emphysematous changes. No pneumothorax. Trace effusion not excluded on the left and right. Supra clavicular postoperative changes. No acute osseous abnormality. IMPRESSION: 1. Right-sided pneumonia. Questionable pneumonia retrocardiac region on the left.
[2023-07-23 14:00] LABS: BACTERIA,URINE 1+ (NOT PRESENT); HYALINE CASTS, URINE 0-2 (NOT PRESENT); MUCUS,URINE 1+ (NOT PRESENT); URINE WBC, MICROSCOPIC 20-30 (0-2)
[2023-07-23] MEDS: LEVAQUIN 500 MG/100 ML D5W 500 MG/100 ML BAG IV ONE (14:11)
[2023-07-23 15:41] VITALS: BMI 41.0
[2023-07-23] MEDS ORDERED: ALBUTEROL 0.083% NEB NEB PRN (17:21)
[2023-07-23] MEDS ORDERED: AMBIEN PO PRN (17:21)
[2023-07-23] MEDS ORDERED: ZAROXOLYN PO PRN (17:21)
[2023-07-23] MEDS ORDERED: ROBITUSSIN AC PO PRN (17:21)
[2023-07-23] MEDS: DUONEB NEB SCH (18:05)
[2023-07-23] MEDS: NORCO 7.5-325 PO PRN (19:44)
[2023-07-23] MEDS: ZYLOPRIM PO SCH (21:15)
[2023-07-23] MEDS: AMBIEN PO PRN (21:15)
[2023-07-23] MEDS: NEURONTIN PO SCH (21:16)
[2023-07-23] MEDS: SOLU-MEDROL 40 MG IVP SCH (21:16)
[2023-07-23] MEDS: MELATONIN PO PRN (21:26)
[2023-07-24 05:05] LABS: HEMOGLOBIN 11.3 g/dl (12.0-16.0); MEAN CORPUSCULAR HEMOGLOBIN 30.9 pg (27.0-31.0); MEAN CORPUSCULAR HGB CONC 32.3 (31.8-35.4); MEAN CORPUSCULAR VOLUME 95.6 fl (81.0-99.0); PLATELET COUNT 143 10^3/uL (140-440); RDW COEFFICIENT OF VARIATION 14.1 % (11.6-14.8); RED BLOOD COUNT 3.66 10^6/ul (4.20-5.40); WHITE BLOOD COUNT 23.84 K/ul (4.6-10.2)
[2023-07-24 05:21] LABS: ALANINE AMINOTRANSFERASE 23.2 U/L (0-35); ALBUMIN 3.69 g/dL (3.5-5.0); ALKALINE PHOSPHATASE 55.1 U/L (53-141); ASPARTATE AMINO TRANSFERASE 34.7 U/L (14-36); BILIRUBIN,TOTAL 0.75 mg/dL (0.2-1.3); BLOOD UREA NITROGEN 39.6 mg/dL (7-17); CALCIUM 9.38 mg/dL (8.4-10.2); CHLORIDE 100.7 mmol/L (98-107); CREATININE 0.79 mg/dL (0.60-1.30); GLUCOSE 177.1 mg/dL (74-106); POTASSIUM 3.28 mmol/L (3.5-5.1); SODIUM 135.3 mmol/L (134.5-145); TOTAL PROTEIN 6.66 g/dL (6.3-8.2)
[2023-07-24 05:23] LABS: ANISOCYTOSIS NOT PRESENT (NOT PRESENT)
[2023-07-24] MEDS: SYNTHROID PO SCH (05:43)
[2023-07-24] MEDS: LOPRESSOR PO SCH (08:08)
[2023-07-24] MEDS: PROTONIX PO SCH (08:08)
[2023-07-24] MEDS: LEXAPRO PO SCH (08:08)
[2023-07-24] MEDS: K-DUR PO ONE (08:09)
--- NOTE | 2023-07-24 08:09 | PCM ---
Date of Service Date Seen by Provider: 07/24/23 Admit Day/Time Admission Date: 07/23/23 Reason for Admission Chief Complaint: PNEUMONIA Hospital Provider Hospital Provider: MYRON YODER, [facility] Primary Care Physician Primary Care Physician: DUNG HUANG MD History of Present Illness History of Present Illness: 83 yo female presented to the ER following a fall. Reports that she was walking in the house after coming home from yarsanism and "passed out". States she recalls falling face first and was awake after. Has a knot to left forehead. In ER, patient's O2 sat was dropping down into the 80s. She ended up requiring 3L total and is still requiring at this time. She was found to have right sided pneumonia. Patient states that she has been weak and generally not feeling well. No cough, fever, chest pain, N/V/D. WBC count 23. Blood cultures obtained. Admitted to med/surg observation. Case Discussed With Case Discussed With: Patient's case was discussed with the ER Physicians, Dr. Gilmore [facility] Surgical History History of total bilateral knee replacement [place] Z96.653 - Presence of artificial knee joint, bilateral (ICD-10) Hx of CABG 2007 Z95.1 - Presence of aortocoronary bypass graft (ICD-10) History of back surgery 2002 Z98.890 - Other specified postprocedural states (ICD-10) Family History FATHER Cancer BROTHER Kidney malignancy BROTHER History of open heart surgery Mother ALS (amyotrophic lateral sclerosis) Social History Smoking and tobacco status: Never smoker Substance use type: does not use Special nova needs: No Agree to transfusion: Yes Adopted: No Caregiver/support person: No Foster care: No Household members: none Housing: house Marital status: W / Number of children: 0 service: No senior care: No Current occupational status: retired History of recent travel: No Do you think of yourself as: straight/heterosexual Current gender identity: female Seatbelt use: always Helmet use: No Drives intoxicated or rides with intoxicated electric train driver: No Water heater temperature set < 120 degrees: Yes Working smoke detector in home: Yes Fire extinguisher in home: Yes Carbon monoxide detector in home: Yes Allergies Allergies Allergy/AdvReac Type Severity Reaction Status Date / Time duloxetine [From Cymbalta] AdvReac other Verified 07/23/23 12:15 Iodinated Contrast Media AdvReac Hives Verified 07/23/23 12:15 [Iodinated Contrast Media - IV Dye] iodine AdvReac Hives Verified 07/23/23 12:15 Penicillins AdvReac Itching Verified 07/23/23 12:15 povidone-iodine AdvReac Hives Verified 07/23/23 12:15 [From Betadine] soap [From Betadine] AdvReac Itching Verified 07/23/23 12:15 Current Medications Home Medications polyethylene glycol 3350 17 gram oral powder packet (Miralax) 0.5 cap PO QAM constipation 09/25/13 [History Confirmed 07/23/23 Last Taken 04/26/17 06:00 1/2 capful] aspirin 81 mg tablet,delayed release 81 mg PO QPM 05/13/16 [History Confirmed 07/23/23 Last Taken 04/25/17 16:00 1 tablet] loratadine 10 mg tablet 10 mg PO QPM 05/13/16 [History Confirmed 07/23/23 Last Taken 04/26/17 16:00 1 tablet] albuterol sulfate 2.5 mg/3 mL (0.083 %) solution for nebulization 2.5 mg inhalation Q4-6H PRN shortness of breath or wheezing 06/17/22 [History Confirmed 07/23/23 Last Taken Unknown] albuterol sulfate 90 mcg/actuation aerosol inhaler (Ventolin HFA) 2 puff inhalation Q6H PRN shortness of breath or wheezing #18 grams 11/18/22 [Rx Confirmed 07/23/23 Last Taken Unknown] nitroglycerin 0.4 mg sublingual tablet See Rx Instructions .Route .COMPLEX #25 tabs 04/07/23 [Rx Confirmed 07/23/23 Last Taken Unknown] allopurinol 100 mg tablet 100 mg PO BID #180 tabs 04/21/23 [Rx Confirmed 07/23/23 Last Taken Unknown] atorvastatin 40 mg tablet (Lipitor) 40 mg PO QPM #90 tabs 04/21/23 [Rx Confirmed 07/23/23 Last Taken Unknown] codeine 10 mg-guaifenesin 100 mg/5 mL oral liquid 5 ml PO Q6H PRN cough #120 mL 04/21/23 [Rx Confirmed 07/23/23 Last Taken Unknown] escitalopram oxalate 20 mg tablet See Rx Instructions .Route .COMPLEX #90 tabs 04/21/23 [Rx Confirmed 07/23/23 Last Taken Unknown] furosemide 40 mg tablet (Lasix) 40 mg PO QAM #90 tabs 04/21/23 [Rx Confirmed 07/23/23 Last Taken Unknown] levothyroxine 50 mcg tablet (Synthroid) 50 mcg PO QDAC #90 tabs 04/21/23 [Rx Confirmed 07/23/23 Last Taken Unknown] metoprolol tartrate 25 mg tablet 25 mg PO QAM #90 tabs 04/21/23 [Rx Confirmed 07/23/23 Last Taken Unknown] potassium chloride 20 mEq tablet,extended release(part/cryst) (Klor-Con M) 20 meq PO QAM #90 tabs 04/21/23 [Rx Confirmed 07/23/23 Last Taken Unknown] hydrocodone 7.5 mg-acetaminophen 325 mg tablet 1 tab PO QID PRN Severe Pain #120 tabs 07/21/23 [Rx Confirmed 07/23/23 Last Taken Unknown] ondansetron HCl 4 mg tablet 4 mg PO Q6HR PRN Nausea / Vomiting #9 tabs 07/21/23 [Rx Confirmed 07/23/23 Last Taken Unknown] pantoprazole 40 mg tablet,delayed release (Protonix) 40 mg PO QDAY #90 tabs 07/21/23 [Rx Confirmed 07/23/23 Last Taken Unknown] zolpidem 5 mg tablet (Ambien) 5 mg PO BEDTIME PRN Insomnia #16 tabs 07/21/23 [Rx Confirmed 07/23/23 Last Taken Unknown] cholecalciferol (vitamin D3) 125 mcg (5,000 unit) capsule 5,000 unit PO DAILY 07/23/23 [History Confirmed 07/23/23 Last Taken Unknown] gabapentin 600 mg tablet 600 mg PO TID Neuropathy 07/23/23 [History Confirmed 07/23/23 Last Taken Unknown] metolazone 2.5 mg tablet 2.5 mg PO .3 times week PRN fluid 07/23/23 [History Confirmed 07/23/23 Last Taken Unknown] potassium chloride 10 mEq tablet,extended release(part/cryst) 10 meq PO DAILY 07/23/23 [History Confirmed 07/23/23 Last Taken Unknown] Home Hydrocodone Bitart/Acetaminophen (Hydrocodone Bit/Acetaminophen 7.5/325 Mg Tablet) 1 tab PO QID PRN PRN Reason: Pain Last Admin: 07/24/23 02:28 Dose: 1 tab Albuterol Sulfate (Albuterol Sulfate 0.083% Vial.Neb) 2.5 mg NEB Q4-6H PRN PRN Reason: Wheezing Albuterol/Ipratropium (Ipratropium/Albuterol Vial.Neb) 3 ml NEB RTQ4H [facility] Last Admin: 07/24/23 05:03 Dose: 3 ml Allopurinol (Allopurinol 100 Mg Tablet) 100 mg PO BID [facility] Last Admin: 07/24/23 08:10 Dose: 100 mg Aspirin (Aspirin 81 Mg Tablet.) 81 mg PO QPM [facility] Atorvastatin Calcium (Atorvastatin Calcium 20 Mg Tablet) 40 mg PO QPM [facility] Cholecalciferol (Cholecalciferol (Vitamin D3) 1,000 Unit (25 Mcg) Tablet) 5,000 unit PO DAILY [facility] Last Admin: 07/24/23 08:10 Dose: 5,000 unit Enoxaparin Sodium (Enoxaparin Sodium 40 Mg/0.4 Ml Syr) 40 mg SUBCUT DAILY [facility] Last Admin: 07/24/23 08:15 Dose: 40 mg Escitalopram Oxalate (Escitalopram Oxalate 10 Mg Tablet) 20 mg PO DAILY [facility] Last Admin: 07/24/23 08:08 Dose: 20 mg Furosemide (Furosemide 40 Mg Tablet) 40 mg PO QAM [facility] Last Admin: 07/24/23 08:12 Dose: 40 mg Gabapentin (Gabapentin 300 Mg Capsule) 600 mg PO TID [facility] Last Admin: 07/24/23 08:08 Dose: 600 mg VANCOMYCIN/WATER FOR INJ (PEG) (Vancomycin 1 Gram/200 Ml Premix) 1 gm in 200 mls @ 200 mls/hr IV DAILY [facility] Stop: 07/27/23 08:59 CEFEPIME 2 GM/D5W (Maxipime 2 Gm/50 Ml D5w) 2 gm in 50 mls @ 100 mls/hr IV Q8HR [facility] Stop: 07/27/23 08:29 Levothyroxine Sodium (Levothyroxine Sodium 50 Mcg Tablet) 50 mcg PO 0630 [facility] Last Admin: 07/24/23 05:43 Dose: 50 mcg Loratadine (Loratadine 10 Mg Tablet) 10 mg PO QPM [facility] Melatonin (Melatonin 3 Mg Tablet) 6 mg PO BEDTIME PRN PRN Reason: Insomnia Last Admin: 07/23/23 21:26 Dose: 6 mg Methylprednisolone Sodium Succinate (Methylprednisolone Sod Succ/Pf 40 Mg/Ml Vial) 40 mg IVP Q8HR [facility] Last Admin: 07/24/23 05:43 Dose: 40 mg Metolazone (Metolazone 2.5 Mg Tablet) 2.5 mg PO 3 TIMES PER WEEK PRN PRN Reason: edema Metoprolol Tartrate (Metoprolol Tartrate 25 Mg Tablet) 25 mg PO QAM [facility] Last Admin: 07/24/23 08:08 Dose: 25 mg Pantoprazole Sodium (Pantoprazole Sodium 40 Mg Tablet.Dr) 40 mg PO DAILY [facility] Last Admin: 07/24/23 08:08 Dose: 40 mg Potassium Chloride (Potassium Chloride 10 Meq Capsule.Er) 10 meq PO DAILY [facility] Last Admin: 07/24/23 08:11 Dose: 10 meq Zolpidem Tartrate (Zolpidem Tartrate 5 Mg Tablet) 1.25 mg PO BEDTIME PRN PRN Reason: Insomnia Last Admin: 07/23/23 21:15 Dose: 1.25 mg Discontinued Medications Albuterol/Ipratropium (Ipratropium/Albuterol Vial.Neb) 3 ml NEB ONCE STA Stop: 07/23/23 12:17 Last Admin: 07/23/23 12:44 Dose: 3 ml Levofloxacin/Dextrose (Levaquin 500 Mg/100 Ml D5w) 500 mg in 100 mls @ 100 mls/hr IV ONCE ONE Stop: 07/23/23 14:57 Last Admin: 07/23/23 14:11 Dose: 100 mls/hr Levofloxacin/Dextrose (Levaquin 500 Mg/100 Ml D5w) 500 mg in 100 mls @ 100 mls/hr IV DAILY [facility] Stop: 07/27/23 08:59 Levofloxacin/Dextrose (Levaquin 750 Mg/150 Ml D5w) 750 mg in 150 mls @ 100 mls/hr IV DAILY [facility] Stop: 07/27/23 08:59 Last Admin: 07/24/23 08:12 Dose: 100 mls/hr Ketorolac Tromethamine (Ketorolac Tromethamine 15 Mg/Ml Vial) 15 mg IVP ONCE STA Stop: 07/23/23 12:17 Last Admin: 07/23/23 12:39 Dose: 15 mg Methylprednisolone Sodium Succinate (Methylprednisolone Sod Succ/Pf 125 Mg/2 Ml Vial) 125 mg IVP ONCE ONE Stop: 07/23/23 12:17 Last Admin: 07/23/23 12:39 Dose: 125 mg Potassium Chloride (Potassium Chloride 20 Meq Tab) 40 meq PO ONCE ONE Stop: 07/24/23 07:20 Last Admin: 07/24/23 08:09 Dose: 40 meq Zolpidem Tartrate (Zolpidem Tartrate 5 Mg Tablet) 5 mg PO BEDTIME PRN PRN Reason: Insomnia Opioid Naive vs. Tolerant Does Patient Take Opioids?: Yes Is Patient Opioid Naive?: No What is Opioid Naive?: *Opioid Naive implies the patient is not already taking opioids or not chronically receiving opioids on a daily basis. *PRN dosing is not "usually" associated with tolerance. *Patients are at higher risk of over-sedation and aspiration. Is Patient Opioid Tolerant?: No What is Opioid Tolerant?: *Opioid Tolerance implies less than the expected response to an opioid. *Acquired tolerance is defined by the patient taking 60mg of oral morphine daily (or equianalgesic dose of another opioid) for 1 week or more. *Often associated with chronic pain. *May take more than usual dose to achieve desired pain control. Review of Systems Constitutional: Reports Weakness Head: Reports Normocephalic Eyes: Reports No symptoms Ears: Reports No symptoms Nose: Reports No symptoms Mouth: Reports No symptoms Throat: Reports No symptoms Cardiovascular: Reports No symptoms Respiratory: Reports Shortness of air Gastrointestinal: Reports No symptoms Genitourinary: Reports No Symptoms Musculoskeletal: Reports No symptoms Endocrine: Reports No symptoms Hematology: Reports No symptoms Immunology: Reports No symptoms Neurological: Reports No symptoms Psychiatric: Reports No symptoms Physical examination Most Recent Vital Signs: Most Recent Vital Signs Temperature 97.3 F L 07/24/23 05:57 Temperature Source Temporal Artery Scan 07/24/23 05:57 Temperature Source Infrared 07/23/23 12:01 Pulse Rate 109 H 07/24/23 05:57 Respiratory Rate 20 07/24/23 05:57 Blood Pressure 109/71 07/24/23 05:57 Blood Pressure Mean 83 07/24/23 05:57 Blood Pressure Left Arm 121/61 07/23/23 15:04 Blood Pressure Location Left Arm 07/24/23 05:57 Blood Pressure Position Supine 07/24/23 05:57 O2 Sat by Pulse Oximetry 97 07/24/23 05:57 Oxygen Delivery Method Nasal Cannula 07/24/23 07:00 Oxygen Flow Rate 4 07/24/23 05:57 Height 5 ft 2 in 07/23/23 19:06 Weight 224 lb 5 oz 07/23/23 19:06 Telemetry Type Remote Telemetry 07/24/23 06:56 Telemetry Monitoring Continues 07/24/23 06:56 Irregular Telemetry Rate (Approximate) 90-100 BPM 07/24/23 06:56 Telemetry Heart Rate 64 05/03/17 07:00 Telemetry SPO2 94 07/24/23 06:56 EKG QRS Interval 0.16 H 07/24/23 06:56 Telemetry Strip Reading AFIB WITH BBB 07/24/23 06:56 Appearance: Positive No Apparent Distress, Alert and Oriented x3 and Ill- Appearing Skin: Positive Warm and Good Turgor HEENT: Positive Normocephalic and PERRLA Chest/Lungs: Positive Symmetrical With Equal Breath Sounds, Good Air Movement all 4 Lung [place] and Other (Crackles RLL) Heart: Positive RRR and Pulses Normal GI/: Positive Soft, Nontender, Bowel Sounds Normal and No Distention Musculoskeletal: Positive Not Examined Extremities: Positive Intact Peripheral Pulses, Stable Joints Without Laxity and Good ROM in All Joints Neurological: Positive Sensation Intact, Motor intact, Alert, Oriented and Other (generalized weakness) Labs This Visit Labs This Visit: Labs This Visit 07/23/23 07/23/23 07/23/23 12:28 12:45 13:25 WBC 22.34 H RBC 3.94 L Hgb 11.8 L Hct 38.0 MCV 96.4 MCH 29.9 MCHC 31.1 L RDW Coeff of Tala 14.2 Plt Count 146 Neutrophils % (Manual) 77.0 H Band Neutrophils % 12.0 H Lymphocytes % (Manual) 3.0 L Monocytes % (Manual) 4.0 Metamyelocytes % 4.0 H Anisocytosis Not present Sodium 136.7 Potassium 3.82 Chloride 98.5 Carbon Dioxide 30.8 H Anion Gap 11.22 BUN 25.5 H Creatinine 0.86 Estimated GFR (MDRD) 63.00 BUN/Creatinine Ratio 29.65 Glucose 111.1 H Calcium 9.40 Total Bilirubin 1.12 AST 40.1 H ALT 23.1 Alkaline Phosphatase 62.3 Troponin I 0.024 Total Protein 7.24 Albumin 4.20 Globulin 3.04 Albumin/Globulin Ratio 1.38 Urine Color Yellow Urine Clarity Clear Urine pH 5.5 Ur Specific [place] 1.020 Urine Protein 1+ H Urine Glucose (UA) Negative Urine Ketones Negative Urine Blood Negative Urine Nitrite Negative Urine Bilirubin Negative Urine Urobilinogen 0.2 Ur Leukocyte Esterase Negative Urine Microscopic WBC 20-30 Ur Squamous Epith Cells 10-20 Urine Bacteria 1+ Hyaline Casts 0-2 Urine Mucus 1+ Influ A Molecular Assay Negative by naat Influ B Molecular Assay Negative by naat SARS CoV-2 RNA Rapid MANNY Negative 07/24/23 04:55 WBC 23.84 H RBC 3.66 L Hgb 11.3 L Hct 35.0 L MCV 95.6 MCH 30.9 MCHC 32.3 RDW Coeff of Tala 14.1 Plt Count 143 Neutrophils % (Manual) 80.0 H Band Neutrophils % 11.0 H Lymphocytes % (Manual) 4.0 L Monocytes % (Manual) 4.0 Metamyelocytes % 1.0 Anisocytosis Not present Sodium 135.3 Potassium 3.28 L Chloride 100.7 Carbon Dioxide 27.0 Anion Gap 10.88 BUN 39.6 H Creatinine 0.79 Estimated GFR (MDRD) 70.00 BUN/Creatinine Ratio 50.12 Glucose 177.1 H D Calcium 9.38 Total Bilirubin 0.75 AST 34.7 ALT 23.2 Alkaline Phosphatase 55.1 Troponin I Total Protein 6.66 Albumin 3.69 Globulin 2.97 Albumin/Globulin Ratio 1.24 Urine Color Urine Clarity Urine pH Ur Specific [place] Urine Protein Urine Glucose (UA) Urine Ketones Urine Blood Urine Nitrite Urine Bilirubin Urine Urobilinogen Ur Leukocyte Esterase Urine Microscopic WBC Ur Squamous Epith Cells Urine Bacteria Hyaline Casts Urine Mucus Influ A Molecular Assay Influ B Molecular Assay SARS CoV-2 RNA Rapid MANNY Imaging Imaging: EXAM: FRONTAL VIEW OF THE CHEST. FINDINGS: Cardiac silhouette is borderline enlarged. Stable. Postoperative changes mediastinum. Basilar consolidating infiltrate. Questionable retrocardiac infiltrate also demonstrated on the left. Findings are superimposed on chronic appearing interstitial/emphysematous changes. No pneumothorax. Trace effusion not excluded on the left and right. Supra clavicular postoperative changes. No acute osseous abnormality. IMPRESSION: 1. Right-sided pneumonia. Questionable pneumonia retrocardiac region on the left. Review Statement Review Statement: I have independently reviewed and interpreted the labs/EKGs/imaging that were ordered by the ER provider. I have reviewed all outside records that are available currently in our EMR including imaging/notes/labs from previous visits. Plan Plan: 1. Sepsis - appears euvolemic, fluid resus not given due to CHF history, blood cultures pending, vanc and cefepime started 2. Acute Hypoxic Respiratory Failure in setting of CAP - wean O2 as tolerated, steroids, nebs 3. Community Acquired Pneumonia, right sided - vanc and cefepime, steroids, nebs, mrsa, strep pneumo, and legionella ordered 4. CHF - chronic, not in exacerbation, continue home medications 5. A fib - rate controlled, not RVR, continue home medications DVT Prophylaxis: Lovenox Time Spent: Greater than 80 minutes spent with patient, 50% of the time spent with this patient was devoted to counseling and coordination of care. [facility] minutes spent discussing advance care planning. Disposition: Admit to: Med/Surg Observation DNR Discussed Plan of Care with Dr. Gideon Huang. Medications Medication Orders: Medications Ordered Category Date Time Status Albuterol Sulfate 0.083% Neb [Albuterol 0.083% Neb] Meds 07/23/23 17:21 Active 2.5 mg NEB Q4-6H PRN Allopurinol [Zyloprim] Meds 07/23/23 21:00 Active 100 mg PO BID Aspirin [Aspirin EC] Meds 07/24/23 17:00 Active 81 mg PO QPM Atorvastatin Calcium [Lipitor] Meds 07/24/23 17:00 Active 40 mg PO QPM Cholecalciferol (Vitamin D3) [Vitamin D] Meds 07/24/23 09:00 Active 5,000 unit PO DAILY Codeine Phosphate/Guaifenesin [Robitussin AC] Meds 07/23/23 17:21 Active 5 ml PO Q6H PRN Enoxaparin Sodium [Lovenox] Meds 07/24/23 09:00 Active 40 mg SUBCUT DAILY Escitalopram Oxalate [Lexapro] Meds 07/24/23 09:00 Active 20 mg PO DAILY Furosemide [Lasix Tab] Meds 07/24/23 09:00 Active 40 mg PO QAM Gabapentin [Neurontin] Meds 07/23/23 21:00 Active 600 mg PO TID Hydrocodone Bit/Acetaminophen [[place] 7.5-325] Meds 07/23/23 17:21 Active 1 tab PO QID PRN Ipratropium/Albuterol Neb [Duoneb] Meds 07/23/23 18:00 Active 3 ml NEB RTQ4H Levofloxacin/D5w [Levaquin 750 mg/150 ml D5w] Meds 07/24/23 09:00 Active 750 mg in 150 ml IV DAILY Levothyroxine Sodium [Synthroid] Meds 07/24/23 06:30 Active 50 mcg PO 0630 Loratadine [Claritin] Meds 07/24/23 17:00 Active 10 mg PO QPM Melatonin Meds 07/23/23 21:12 Active 6 mg PO BEDTIME PRN Methylprednisolone Sod Succ/Pf [Solu-Medrol 40 mg] Meds 07/23/23 21:00 Active 40 mg IVP Q8HR Metolazone [Zaroxolyn] Meds 07/23/23 17:21 Active 2.5 mg PO 3 TIMES PER WEEK PRN Metoprolol Tartrate [Lopressor] Meds 07/24/23 09:00 Active 25 mg PO QAM Pantoprazole Sodium [Protonix] Meds 07/24/23 09:00 Active 40 mg PO DAILY Potassium Chloride [Micro-K Cap] Meds 07/24/23 09:00 Active 10 meq PO DAILY Zolpidem Tartrate [Ambien] Meds 07/23/23 18:04 Active 1.25 mg PO BEDTIME PRN
[2023-07-24] MEDS: VITAMIN D PO SCH (08:10)
[2023-07-24] MEDS: MICRO-K CAP PO SCH (08:11)
[2023-07-24] MEDS: LASIX TAB PO SCH (08:12)
[2023-07-24] MEDS: LEVAQUIN 750 MG/150 ML D5W 750 MG/150 ML BAG IV SCH (08:12)
[2023-07-24] MEDS: LOVENOX SUBCUT SCH (08:15)
[2023-07-24] MEDS: MAXIPIME 2 GM/50 ML D5W 2 GM/50 ML BAG IV SCH (08:37)
[2023-07-24] MEDS ORDERED: LEVAQUIN 500 MG/100 ML D5W 500 MG/100 ML BAG IV SCH (09:00)
[2023-07-24] MEDS ORDERED: VANCOMYCIN 1 GRAM/200 ML PREMIX 1 GM/200 ML BAG IV SCH (09:00)
[2023-07-24] MEDS: VANCOMYCIN 1 GRAM/200 ML PREMIX 1 GM/200 ML BAG IV SCH (09:42)
[2023-07-24] MEDS: ASPIRIN EC PO SCH (16:00)
[2023-07-24] MEDS: LIPITOR PO SCH (16:00)
[2023-07-24] MEDS: CLARITIN PO SCH (16:00)
[2023-07-25 05:33] LABS: HEMATOCRIT 35.2 % (37.0-47.0); IMMATURE GRANULOCYTE # (AUTO) 0.3 (0.0-1.0); IMMATURE GRANULOCYTE % (AUTO) 1.9 % (0.0-5.0); LYMPHOCYTES # (AUTO) 0.6 K/uL (0.60-3.4); LYMPHOCYTES % (AUTO) 3.3 (10.0-50.0); MEAN CORPUSCULAR HEMOGLOBIN 30.6 pg (27.0-31.0); MEAN CORPUSCULAR HGB CONC 31.3 (31.8-35.4); MEAN CORPUSCULAR VOLUME 98.1 fl (81.0-99.0); MONOCYTES # (AUTO) 0.5 K/uL (0.4-2.0); MONOCYTES % (AUTO) 2.9 (0-10); NEUTROPHILS # (AUTO) 16.6 K/ul (2.0-6.9); NEUTROPHILS % (AUTO) 91.9 % (42.2-75.2); PLATELET COUNT 163 10^3/uL (140-440); RDW COEFFICIENT OF VARIATION 13.9 % (11.6-14.8); RED BLOOD COUNT 3.59 10^6/ul (4.20-5.40)
[2023-07-25 05:48] LABS: ALANINE AMINOTRANSFERASE 21.8 U/L (0-35); ALBUMIN 3.62 g/dL (3.5-5.0); ALKALINE PHOSPHATASE 53.9 U/L (53-141); ASPARTATE AMINO TRANSFERASE 33.1 U/L (14-36); BILIRUBIN,TOTAL 0.55 mg/dL (0.2-1.3); BLOOD UREA NITROGEN 39.9 mg/dL (7-17); CALCIUM 9.22 mg/dL (8.4-10.2); CARBON DIOXIDE 28.3 mmol/L (22-30.0); CHLORIDE 105.5 mmol/L (98-107); CREATININE 0.67 mg/dL (0.60-1.30); POTASSIUM 3.76 mmol/L (3.5-5.1); TOTAL PROTEIN 6.73 g/dL (6.3-8.2)
[2023-07-25] MEDS ORDERED: MIRALAX PO SCH (09:00)
[2023-07-25] MEDS: MIRALAX PO SCH (09:15)
[2023-07-25] MEDS: COLACE PO SCH (09:18)
--- NOTE | 2023-07-25 09:37 | PCM.PROG ---
Date/Time Seen Date Seen by Provider: 07/25/23 Time Seen by Provider: 08:30 Provider [facility] Chief Complaint Chief Complaint: PNEUMONIA Subjective Subjective: Patient feeling better but still SOB with exertion. Not at her baseline. Still requiring O2. Not coughing anything up. No n/v/d. Objective Appearance: Positive No Apparent Distress and Alert and Oriented x3 Chest/Lungs: Positive Clear to Auscultation Bilaterally; Negative Rales, Rhonci or Wheezes Heart: Positive Irregular Rhythm GI/: Positive Soft, Nontender, Bowel Sounds Normal and No Distention Neurological: Positive Cranial Nerves Intact, Alert and Other (+generalized weakness ) Vital Signs Vital Signs: Vital Signs: Last 24 Hours 07/24/23 09:38 07/24/23 09:49 07/24/23 10:00 Temperature 97.4 F L Temperature Source Temporal Artery Scan Pulse Rate 89 Respiratory Rate 20 Blood Pressure 131/84 Blood Pressure Mean 99 Blood Pressure Location Left Arm Blood Pressure Position O2 Sat by Pulse Oximetry 93 L 97 Oxygen Delivery Method Nasal Cannula Nasal Cannula Nasal Cannula Oxygen Flow Rate 4 4 Telemetry Type Telemetry Monitoring Irregular Telemetry Rate (Approximate) Telemetry Heart Rate Telemetry SPO2 EKG QRS Interval Telemetry Strip Reading 07/24/23 11:00 07/24/23 11:49 07/24/23 13:00 Temperature Temperature Source Pulse Rate Respiratory Rate Blood Pressure Blood Pressure Mean Blood Pressure Location Blood Pressure Position O2 Sat by Pulse Oximetry Oxygen Delivery Method Nasal Cannula Nasal Cannula Oxygen Flow Rate Telemetry Type Remote Telemetry Telemetry Monitoring Continues Irregular Telemetry Rate (Approximate) 80-90 BPM Telemetry Heart Rate Telemetry SPO2 95 EKG QRS Interval 0.14 H Telemetry Strip Reading AFIB WITH BBB 07/24/23 13:00 07/24/23 14:00 07/24/23 14:00 Temperature 98.2 F Temperature Source Temporal Artery Scan Pulse Rate 106 H Respiratory Rate 24 H Blood Pressure 130/79 Blood Pressure Mean 96 Blood Pressure Location Left Arm Blood Pressure Position Sitting O2 Sat by Pulse Oximetry 95 Oxygen Delivery Method Nasal Cannula Nasal Cannula Nasal Cannula Oxygen Flow Rate 3 Telemetry Type Telemetry Monitoring Irregular Telemetry Rate (Approximate) Telemetry Heart Rate Telemetry SPO2 EKG QRS Interval Telemetry Strip Reading 07/24/23 14:00 07/24/23 14:49 07/24/23 15:46 Temperature Temperature Source Pulse Rate Respiratory Rate Blood Pressure Blood Pressure Mean Blood Pressure Location Blood Pressure Position O2 Sat by Pulse Oximetry 96 Oxygen Delivery Method Nasal Cannula Nasal Cannula Nasal Cannula Oxygen Flow Rate 3 Telemetry Type Telemetry Monitoring Irregular Telemetry Rate (Approximate) Telemetry Heart Rate Telemetry SPO2 EKG QRS Interval Telemetry Strip Reading 07/24/23 16:46 07/24/23 17:36 07/24/23 18:00 Temperature 97.6 F Temperature Source Temporal Artery Scan Pulse Rate 83 Respiratory Rate 24 H Blood Pressure 114/69 Blood Pressure Mean 84 Blood Pressure Location Left Arm Blood Pressure Position Sitting O2 Sat by Pulse Oximetry 95 Oxygen Delivery Method Nasal Cannula Nasal Cannula Nasal Cannula Oxygen Flow Rate 2 Telemetry Type Telemetry Monitoring Irregular Telemetry Rate (Approximate) Telemetry Heart Rate Telemetry SPO2 EKG QRS Interval Telemetry Strip Reading 07/24/23 19:00 07/24/23 19:00 07/24/23 20:00 Temperature Temperature Source Pulse Rate Respiratory Rate Blood Pressure Blood Pressure Mean Blood Pressure Location Blood Pressure Position O2 Sat by Pulse Oximetry Oxygen Delivery Method Nasal Cannula Nasal Cannula Oxygen Flow Rate Telemetry Type Remote Telemetry Telemetry Monitoring Continues Irregular Telemetry Rate (Approximate) Telemetry Heart Rate 103 H Telemetry SPO2 92 L EKG QRS Interval 0.11 H Telemetry Strip Reading AFIB W/ RVR AND BBB 07/24/23 20:00 07/24/23 20:00 07/24/23 20:55 Temperature 97.8 F Temperature Source Temporal Artery Scan Pulse Rate 89 Respiratory Rate 20 21 H Blood Pressure 110/74 Blood Pressure Mean 86 Blood Pressure Location Left Arm Blood Pressure Position Supine O2 Sat by Pulse Oximetry 95 98 Oxygen Delivery Method Nasal Cannula Nasal Cannula Nasal Cannula Oxygen Flow Rate 2 2 2 Telemetry Type Telemetry Monitoring Irregular Telemetry Rate (Approximate) Telemetry Heart Rate Telemetry SPO2 EKG QRS Interval Telemetry Strip Reading 07/24/23 21:00 07/24/23 22:00 07/24/23 23:00 Temperature Temperature Source Pulse Rate Respiratory Rate Blood Pressure Blood Pressure Mean Blood Pressure Location Blood Pressure Position O2 Sat by Pulse Oximetry Oxygen Delivery Method Nasal Cannula Nasal Cannula Nasal Cannula Oxygen Flow Rate Telemetry Type Telemetry Monitoring Irregular Telemetry Rate (Approximate) Telemetry Heart Rate Telemetry SPO2 EKG QRS Interval Telemetry Strip Reading 07/25/23 00:00 07/25/23 00:49 07/25/23 01:00 Temperature Temperature Source Pulse Rate Respiratory Rate Blood Pressure Blood Pressure Mean Blood Pressure Location Blood Pressure Position O2 Sat by Pulse Oximetry Oxygen Delivery Method Nasal Cannula Nasal Cannula Oxygen Flow Rate Telemetry Type Remote Telemetry Telemetry Monitoring Continues Irregular Telemetry Rate (Approximate) 90-100 BPM Telemetry Heart Rate Telemetry SPO2 EKG QRS Interval 0.11 H Telemetry Strip Reading AFIB W/ BBB 07/25/23 02:00 07/25/23 03:00 07/25/23 04:00 Temperature Temperature Source Pulse Rate Respiratory Rate Blood Pressure Blood Pressure Mean Blood Pressure Location Blood Pressure Position O2 Sat by Pulse Oximetry Oxygen Delivery Method Nasal Cannula Nasal Cannula Nasal Cannula Oxygen Flow Rate Telemetry Type Telemetry Monitoring Irregular Telemetry Rate (Approximate) Telemetry Heart Rate Telemetry SPO2 EKG QRS Interval Telemetry Strip Reading 07/25/23 05:00 07/25/23 05:23 07/25/23 05:35 Temperature 98.9 F Temperature Source Temporal Artery Scan Pulse Rate 87 Respiratory Rate 22 H Blood Pressure 153/85 H Blood Pressure Mean 107 Blood Pressure Location Left Arm Blood Pressure Position Supine O2 Sat by Pulse Oximetry 95 94 L Oxygen Delivery Method Nasal Cannula Nasal Cannula Nasal Cannula Oxygen Flow Rate 2 2 Telemetry Type Telemetry Monitoring Irregular Telemetry Rate (Approximate) Telemetry Heart Rate Telemetry SPO2 EKG QRS Interval Telemetry Strip Reading 07/25/23 06:00 07/25/23 07:00 07/25/23 07:00 Temperature Temperature Source Pulse Rate Respiratory Rate Blood Pressure Blood Pressure Mean Blood Pressure Location Blood Pressure Position O2 Sat by Pulse Oximetry Oxygen Delivery Method Nasal Cannula Nasal Cannula Oxygen Flow Rate Telemetry Type Remote Telemetry Telemetry Monitoring Continues Irregular Telemetry Rate (Approximate) 100-110 BPM Telemetry Heart Rate Telemetry SPO2 EKG QRS Interval 0.09 Telemetry Strip Reading Afib with RVR 07/25/23 08:00 Temperature Temperature Source Pulse Rate Respiratory Rate Blood Pressure Blood Pressure Mean Blood Pressure Location Blood Pressure Position O2 Sat by Pulse Oximetry Oxygen Delivery Method Nasal Cannula Oxygen Flow Rate Telemetry Type Telemetry Monitoring Irregular Telemetry Rate (Approximate) Telemetry Heart Rate Telemetry SPO2 EKG QRS Interval Telemetry Strip Reading Lab Results Lab Results: Lab Results: Last 24 Hours 07/25/23 05:11 WBC 18.10 H D RBC 3.59 L Hgb 11.0 L Hct 35.2 L MCV 98.1 MCH 30.6 MCHC 31.3 L RDW Coeff of Tala 13.9 Plt Count 163 Immature Gran % (Auto) 1.9 Neut % (Auto) 91.9 H Lymph % (Auto) 3.3 L [place] % (Auto) 2.9 Eos % (Auto) 0.0 Baso % (Auto) 0.0 Neut # (Auto) 16.6 H Lymph # (Auto) 0.6 [place] # (Auto) 0.5 Eos # (Auto) 0.0 Baso # (Auto) 0.0 Immature Gran # (Auto) 0.3 Sodium 138.0 Potassium 3.76 Chloride 105.5 Carbon Dioxide 28.3 Anion Gap 7.96 BUN 39.9 H Creatinine 0.67 Estimated GFR (MDRD) 84.00 BUN/Creatinine Ratio 59.55 Glucose 205.0 H Calcium 9.22 Total Bilirubin 0.55 AST 33.1 ALT 21.8 Alkaline Phosphatase 53.9 Total Protein 6.73 Albumin 3.62 Globulin 3.11 Albumin/Globulin Ratio 1.16 Procalcitonin 3.89 H Additional Comments Additional Comments: I have independently reviewed and interpreted the labs/EKGs/imaging ordered during this hospital stay. I have reviewed outside records that are available in our EMR that pertain to medical stay including imaging/notes/labs from previous visits. Active Medications Active Medications: Medications Generic Name Dose Route Start Last Admin Trade Name Freq PRN Reason Stop Dose Admin Hydrocodone Bitart/Acetaminophen 1 tab 07/23/23 17:21 07/25/23 05:31 Hydrocodone Bit/Acetaminophen 7.5/325 Mg Tablet PO 1 tab QID PRN Administration Pain Albuterol Sulfate 2.5 mg 07/23/23 17:21 Albuterol Sulfate 0.083% Vial.Lizbet NEB Q4-6H PRN Wheezing Albuterol/Ipratropium 3 ml 07/23/23 18:00 07/25/23 05:29 Ipratropium/Albuterol Vial.Lizbet NEB 3 ml RTQ4H NASRIN Administration Allopurinol 100 mg 07/23/23 21:00 07/25/23 09:20 Allopurinol 100 Mg Tablet PO 100 mg BID NASRIN Administration Aspirin 81 mg 07/24/23 17:00 07/24/23 16:00 Aspirin 81 Mg Tablet.Dr BOLTON 81 mg QPM NASRIN Administration Atorvastatin Calcium 40 mg 07/24/23 17:00 07/24/23 16:00 Atorvastatin Calcium 20 Mg Tablet PO 40 mg QPM NASRIN Administration Cholecalciferol 5,000 unit 07/24/23 09:00 07/25/23 09:17 Cholecalciferol (Vitamin D3) 1,000 Unit (25 Mcg) Tablet PO 5,000 unit DAILY NASRIN Administration Docusate Sodium 200 mg 07/25/23 09:00 07/25/23 09:18 Docusate Sodium 100 Mg Capsule PO 200 mg DAILY NASRIN Administration Enoxaparin Sodium 40 mg 07/24/23 09:00 07/25/23 09:20 Enoxaparin Sodium 40 Mg/0.4 Ml Syr SUBCUT 40 mg DAILY NASRIN Administration Escitalopram Oxalate 20 mg 07/24/23 09:00 07/25/23 09:19 Escitalopram Oxalate 10 Mg Tablet PO 20 mg DAILY NASRIN Administration Furosemide 40 mg 07/24/23 09:00 07/25/23 09:18 Furosemide 40 Mg Tablet PO 40 mg QAM NASRIN Administration Gabapentin 600 mg 07/23/23 21:00 07/25/23 09:19 Gabapentin 300 Mg Capsule PO 600 mg TID NASRIN Administration CEFEPIME 2 GM/D5W 2 gm in 50 mls @ 100 mls/hr 07/24/23 08:30 07/25/23 05:14 Maxipime 2 Gm/50 Ml D5w IV 07/27/23 08:29 100 mls/hr Q8HR NASRIN Administration VANCOMYCIN/WATER FOR INJ (PEG) 1 gm in 200 mls @ 200 mls/hr 07/24/23 09:00 07/24/23 20:40 Vancomycin 1 Gram/200 Ml Premix IV 07/27/23 08:59 200 mls/hr Q12HR NASRIN Administration Levothyroxine Sodium 50 mcg 07/24/23 06:30 07/25/23 05:31 Levothyroxine Sodium 50 Mcg Tablet PO 50 mcg 0630 NASRIN Administration Loratadine 10 mg 07/24/23 17:00 07/24/23 16:00 Loratadine 10 Mg Tablet PO 10 mg QPM NASRIN Administration Melatonin 6 mg 07/23/23 21:12 07/24/23 20:42 Melatonin 3 Mg Tablet PO 6 mg BEDTIME PRN Administration Insomnia Methylprednisolone Sodium Succinate 40 mg 07/23/23 21:00 07/25/23 05:13 Methylprednisolone Sod Succ/Pf 40 Mg/Ml Vial IVP 40 mg Q8HR NASRIN Administration Metolazone 2.5 mg 07/23/23 17:21 Metolazone 2.5 Mg Tablet PO 3 TIMES PER WEEK PRN edema Metoprolol Tartrate 25 mg 07/24/23 09:00 07/25/23 09:17 Metoprolol Tartrate 25 Mg Tablet PO 25 mg QAM NASRIN Administration Pantoprazole Sodium 40 mg 07/24/23 09:00 07/25/23 09:19 Pantoprazole Sodium 40 Mg Tablet. PO 40 mg DAILY NASRIN Administration Polyethylene Glycol 17 gm 07/25/23 09:00 07/25/23 09:15 Polyethylene Glycol 17 Gm Powd.Pack PO 17 gm QAM NASRIN Administration Potassium Chloride 10 meq 07/24/23 09:00 07/25/23 09:20 Potassium Chloride 10 Meq Capsule.Er PO 10 meq DAILY NASRIN Administration Zolpidem Tartrate 1.25 mg 07/23/23 18:04 07/24/23 20:43 Zolpidem Tartrate 5 Mg Tablet PO 1.25 mg BEDTIME PRN Administration Insomnia Plan Plan: 1. Sepsis - appears euvolemic, fluid resus not given due to CHF history, blood cultures pending, vanc and cefepime started yesterday, will taper down 2. Acute Hypoxic Respiratory Failure in setting of CAP - wean O2 as tolerated, steroids, nebs 3. Community Acquired Pneumonia, right sided - vanc and cefepime, deescal abx, dc steroids, nebs, mrsa, strep pneumo, and legionella ordered 4. CHF - chronic, not in exacerbation, continue home medications 5. A fib - new onset, rate controlled, not RVR, PCP confirmed this is a new diagnosis. Increase metoprolol to bid dosing, start eliquis bid, and check echo and mag. Pt states she has hx of blood clots and was on warfarin in the past but not currently. No contraindications for blood thinners. Risks vs benefits discussed. Dispo: Will require another 1-2 midnights, flipped to inpatient DVT: Eliquis Review Statement Review Statement: I have personally discussed and reviewed the patient's visit/currently labs/imaging/decision making with Dr. Huang, my supervising attending. Greater that 50 minutes spent with patient, 50% of the time spent with this patient was devoted to counseling and coordination of care.
[2023-07-25] MEDS ORDERED: DUONEB NEB PRN (10:17)
[2023-07-25] MEDS: ROCEPHIN 1 GM/50 ML D5W 1 GM/50 ML BAG IV SCH (10:44)
[2023-07-25] MEDS: DOXYCYCLINE HYCLATE PO SCH (10:44)
[2023-07-25] MEDS: SODIUM CHLORIDE 1,000 ML IV SCH (12:20)
[2023-07-25] MEDS: LOPRESSOR PO SCH (20:47)
[2023-07-25] MEDS: ELIQUIS PO SCH (20:49)
[2023-07-26 06:22] LABS: ALANINE AMINOTRANSFERASE 27.3 U/L (0-35); ALBUMIN 3.36 g/dL (3.5-5.0); ALKALINE PHOSPHATASE 47.5 U/L (53-141); ASPARTATE AMINO TRANSFERASE 37.8 U/L (14-36); BILIRUBIN,TOTAL 0.48 mg/dL (0.2-1.3); BLOOD UREA NITROGEN 36.4 mg/dL (7-17); CALCIUM 8.85 mg/dL (8.4-10.2); CARBON DIOXIDE 27.4 mmol/L (22-30.0); CHLORIDE 108.3 mmol/L (98-107); CREATININE 0.59 mg/dL (0.60-1.30); GLUCOSE 115.3 mg/dL (74-106); MAGNESIUM 2.18 mg/dL (1.6-2.3); POTASSIUM 3.97 mmol/L (3.5-5.1); SODIUM 137.4 mmol/L (134.5-145); TOTAL PROTEIN 6.26 g/dL (6.3-8.2)
[2023-07-26 07:21] LABS: BASOPHILS % (AUTO) 0.1 % (0.0-3.0); EOSINOPHILS % (AUTO) 0.1 % (0.0-7.0); HEMATOCRIT 36.8 % (37.0-47.0); HEMOGLOBIN 11.3 g/dl (12.0-16.0); IMMATURE GRANULOCYTE # (AUTO) 0.4 (0.0-1.0); IMMATURE GRANULOCYTE % (AUTO) 2.6 % (0.0-5.0); LYMPHOCYTES # (AUTO) 1.8 K/uL (0.60-3.4); LYMPHOCYTES % (AUTO) 10.9 (10.0-50.0); MEAN CORPUSCULAR HEMOGLOBIN 30.5 pg (27.0-31.0); MEAN CORPUSCULAR HGB CONC 30.7 (31.8-35.4); MEAN CORPUSCULAR VOLUME 99.5 fl (81.0-99.0); MONOCYTES % (AUTO) 6.3 (0-10); NEUTROPHILS # (AUTO) 12.9 K/ul (2.0-6.9); PLATELET COUNT 172 10^3/uL (140-440); RDW COEFFICIENT OF VARIATION 13.9 % (11.6-14.8); WHITE BLOOD COUNT 16.07 K/ul (4.6-10.2)
--- NOTE | 2023-07-26 09:29 | ECHO2D ---
Date of Exam: 07/26/2023 Ordering Physician: DR. GRIFFIN (PCP); PETER PORTER NP (HOSP.) Room #: 122 Reason for Echo: SHORTNESS OF BREATH, CORONARY ARTERY BYPASS GRAFT, LEFT VENTRICULAR HYPERTROPHY, HYPERTENSION, DYSLIPIDEMIA, CORONARY ARTERY DISEASE. M-Mode Normal Adult Results LV Dimensions Normal Adult Results AoV Opening excursions >1.6 >1.6 LVEDD-base- 3.5-5.8 6.3 Ao root dimensions 2.0-3.7 3.1 LVESD-base- 3.1-4.6 L. Atrium dimensions 1.9-3.8 5.4 Post. Wall thickness 0.8-1.1 1.3 IV septum (thickness) 0.7-1.2 1.3 Post. Wall excursion 0.72-1.3 NORMAL Septal motion NORMAL Systolic motion R. Ventricular cavity 1.5-2.0 NORMAL LVEF 60% 59% Paradoxical septal wall motion NORMAL 2-D : DILATED RIGHT ATRIUM, LEFT ATRIUM, AND LEFT VENTRICLE CAVITIES. LEFT VENTRICULAR CONTRACTILITY NORMAL. VALVES ARE NORMAL. NO EFFUSION, NO THROMBUS. COLOR FLOW: MODERATE TO SEVERE MITRAL REGURGITATION, MODERATE TRICUSPID REGURGITATION. M-MODE: MV: NORMAL AV: NORMAL TV: NORMAL PV: NORMAL CHAMBER SIZE: ENLARGED LEFT ATRIUM, RIGHT ATRIUM, AND LEFT VENTRICLE CAVITIES. WALL MOTION: NORMAL PERICARDIUM: NORMAL INTERPRETATION: 1. LEFT VENTRICULAR HYPERTROPHY WITH ENLARGED LEFT ATRIAL CAVITY. 2. ENLARGED RIGHT ATRIUM AND LEFT VENTRICLE CAVITIES. 3. LEFT VENTRICULAR CONTRACTILITY NORMAL. 4. MODERATE TO SEVERE MITRAL REGURGITATION AND MODERATE TRICUSPID REGURGITATION. MTDD
[2023-07-26 10:23] VITALS: BP 139/88; PULSE 82; RESP 15; TEMP 97.2
--- NOTE | 2023-07-26 12:00 | DCSUM ---
Admission Date Admission Date: 07/23/23 Discharge Date Discharge Date: 07/26/23 Admission Diagnosis Admission Diagnosis: 1. Sepsis 2. Acute Hypoxic Respiratory Failure in setting of CAP 3. Community Acquired Pneumonia, right sided Discharge Diagnosis Discharge Diagnosis: 1. Sepsis ruled out 2. Acute Hypoxic Respiratory Failure in setting of CAP - resolved 3. Community Acquired Pneumonia, right sided - improved 4. CHF - chronic, not in exacerbation, continue home medications 5. A fib - new onset Hospital Provider Hospital Provider: PETER PORTER PA-C, [facility] Primary Care Physician Primary Care Physician: DUNG GRIFFIN MD Summary of History and Physical Summary of History and Physical: 83 yo female presented to the ER following a fall. Reports that she was walking in the house after coming home from [place] and "passed out". States she recalls falling face first and was awake after. Has a knot to left forehead. In ER, patient's O2 sat was dropping down into the 80s. She ended up requiring 3L total and is still requiring at this time. She was found to have right sided pneumonia. Patient states that she has been weak and generally not feeling well. No cough, fever, chest pain, N/V/D. WBC count 23. Blood cultures obtained. Admitted to med/surg observation. Hospital Course Subjective: Patient was initially treated with vanc and cefepime due to meeting sepsis criteria. Blood cultures negative. MRSA negative. Transitioned to rocephin and doxy. O2 weaned to RA by day of discharge. Pt did not qualify for home oxygen. She was noted to be in a fib, which is new for her. She has no contraindications to anticoagulation. Discussed risks vs benefits. Able to get Xarelto for about $15 through the [facility] B program. Pt states this is affordable. HR was borderline high (90s-100). Doubled her metoprolol dose and she's been doing well on that. Will discharge home on metoprolol bid, xarelto qd, cefdinir, and doxy remainder. Patient agreeable to plan of care. Appearance: Pleasant, No Apparent Distress, Alert and Well-appearing HEENT: MMM CVS: No Murmur and Other (+irregularly irregular ) Abdomen: Soft, Non-Tender and No Distention Respiratory: No Accessory Muscle Use Extremities: No Edema Vital Signs: Most Recent Vital Signs Temperature 97.2 F L 04/02/24 10:00 Temperature Source Temporal Artery Scan 07/26/23 10:00 Temperature Source Infrared 07/23/23 12:01 Pulse Rate 82 07/26/23 10:00 Respiratory Rate 15 07/26/23 10:00 Blood Pressure 139/88 07/26/23 10:00 Blood Pressure Mean 105 07/26/23 10:00 Blood Pressure Left Arm 121/61 07/23/23 15:04 Blood Pressure Location Left Arm 07/26/23 10:00 Blood Pressure Position Sitting 07/26/23 10:00 O2 Sat by Pulse Oximetry 96 07/26/23 10:00 Oxygen Delivery Method Nasal Cannula 07/26/23 11:00 Oxygen Flow Rate 2 07/26/23 10:00 Height 5 ft 2 in 07/23/23 19:06 Weight 224 lb 5 oz 07/23/23 19:06 Telemetry Type Remote Telemetry 07/26/23 07:00 Telemetry Monitoring Continues 07/26/23 07:00 Irregular Telemetry Rate (Approximate) 60-70 BPM 07/26/23 07:00 Telemetry Heart Rate 103 H 07/24/23 19:00 Telemetry SPO2 95 07/26/23 01:00 EKG QRS Interval 0.12 H 07/26/23 07:00 Telemetry Strip Reading AFIB WITH BBB 07/26/23 07:00 Imaging: EXAM: FRONTAL VIEW OF THE CHEST. FINDINGS: Cardiac silhouette is borderline enlarged. Stable. Postoperative changes mediastinum. Basilar consolidating infiltrate. Questionable retrocardiac infiltrate also demonstrated on the left. Findings are superimposed on chronic appearing interstitial/emphysematous changes. No pneumothorax. Trace effusion not excluded on the left and right. Supra clavicular postoperative changes. No acute osseous abnormality. IMPRESSION: 1. Right-sided pneumonia. Questionable pneumonia retrocardiac region on the left. Date of Exam: 07/26/2023Ordering Physician: DR. GRIFFIN (PCP); PETER PORTER NP (HOSP.) Room #: 122 Reason for Echo: SHORTNESS OF BREATH, CORONARY ARTERY BYPASS GRAFT, LEFT VENTRICULAR HYPERTROPHY, HYPERTENSION, DYSLIPIDEMIA, CORONARY ARTERY DISEASE. M-Mode Normal Adult Results LV Dimensions Normal Adult Results AoV Opening excursions >1.6 >1.6 LVEDD-base- 3.5-5.8 6.3 Ao root dimensions 2.0-3.7 3.1 LVESD-base- 3.1-4.6 L. Atrium dimensions 1.9-3.8 5.4 Post. Wall thickness 0.8-1.1 1.3 IV septum (thickness) 0.7-1.2 1.3 Post. Wall excursion 0.72-1.3 NORMAL Septal motion NORMAL Systolic motion R. Ventricular cavity 1.5-2.0 NORMAL LVEF 60% 59% Paradoxical septal wall motion NORMAL 2-D : DILATED RIGHT ATRIUM, LEFT ATRIUM, AND LEFT VENTRICLE CAVITIES. LEFT VENTRICULAR CONTRACTILITY NORMAL. VALVES ARE NORMAL. NO EFFUSION, NO THROMBUS. COLOR FLOW: MODERATE TO SEVERE MITRAL REGURGITATION, MODERATE TRICUSPID REGURGITATION. M-MODE: MV: NORMAL AV: NORMAL TV: NORMAL PV: NORMAL CHAMBER SIZE: ENLARGED LEFT ATRIUM, RIGHT ATRIUM, AND LEFT VENTRICLE CAVITIES. WALL MOTION: NORMAL PERICARDIUM: NORMAL INTERPRETATION: 1. LEFT VENTRICULAR HYPERTROPHY WITH ENLARGED LEFT ATRIAL CAVITY. 2. ENLARGED RIGHT ATRIUM AND LEFT VENTRICLE CAVITIES. 3. LEFT VENTRICULAR CONTRACTILITY NORMAL. 4. MODERATE TO SEVERE MITRAL REGURGITATION AND MODERATE TRICUSPID REGURGITATION. Lab Results Last 24 Hours: 07/26/23 07/26/23 07/24/23 05:50 05:43 09:32 WBC 16.07 H RBC 3.70 L Hgb 11.3 L Hct 36.8 L MCV 99.5 H MCH 30.5 MCHC 30.7 L RDW Coeff of Tala 13.9 Plt Count 172 Immature Gran % (Auto) 2.6 Neut % (Auto) 80.0 H Lymph % (Auto) 10.9 [place] % (Auto) 6.3 Eos % (Auto) 0.1 Baso % (Auto) 0.1 Neut # (Auto) 12.9 H Lymph # (Auto) 1.8 [place] # (Auto) 1.0 Eos # (Auto) 0.0 Baso # (Auto) 0.0 Immature Gran # (Auto) 0.4 Sodium 137.4 Potassium 3.97 Chloride 108.3 H Carbon Dioxide 27.4 Anion Gap 5.67 BUN 36.4 H Creatinine 0.59 L Estimated GFR (MDRD) 98.00 BUN/Creatinine Ratio 61.69 Glucose 115.3 H Calcium 8.85 Magnesium 2.18 Total Bilirubin 0.48 AST 37.8 H ALT 27.3 Alkaline Phosphatase 47.5 L Total Protein 6.26 L Albumin 3.36 L Globulin 2.90 Albumin/Globulin Ratio 1.15 Procalcitonin 2.36 H Miscellaneous Test Sent to [facility] Discharge Instructions Discharge Planning: Discharge Planning > [address] Kristie Griffin. Discharge Medications: Medications at Discharge (Home Meds & RX) Discharge Plan Discharge Discharge Orders: Discharge Patient (ONCE); Ordered 07/26/23 Ordered By: PETER PORTER Activity Restrictions/Additional Instructions: DISCHARGE TO HOME DX: PNEUMONIA, A FIB PHARMACY [facility] STARTED ON A BLOOD THINNER FOR A FIB INCREASE METOPROLOL TO TWICE DAILY RETURN WITH WORSENING SYMPTOMS FINISH ANTIBIOTICS Instructions: Community Acquired Pneumonia (DC) Care Plan Goals: Problem: Impaired Respiratory Status Goal: Exhibit optimal respiratory function Instructions: Activities as tolerated Apply oxygen as ordered Elevate head of bed Notify MD of increased congestionProblem: Infection Goal #1: No signs/symptoms of infection Instructions: Monitor for sign/symptoms of infection Monitor temperature Goal #2: White blood cell counts Within Normal Limits Instructions: Obtain labs per physician orders Patient Disposition: HOME SELF-CARE Prescriptions: New doxycycline hyclate 100 mg Capsule 100 mg PO BID 5 Days Qty: 10 0RF cefdinir 300 mg capsule 300 mg PO BID 5 Days Qty: 10 0RF metoprolol tartrate 25 mg Tablet 25 mg PO BID Qty: 60 0RF Xarelto 20 mg tablet 20 mg PO DAILY Qty: 30 0RF Rx Instructions: must administer with evening meal Continued nitroglycerin 0.4 mg tablet, sublingual See Rx Instructions .ROUTE .COMPLEX Qty: 25 1RF Dose Instruction: DISSOLVE 1 TABLET ON THE TONGUE NEEDED FOR ANGINA Rx Instructions: DISSOLVE 1 TABLET ON THE TONGUE NEEDED FOR ANGINA escitalopram oxalate 20 mg tablet See Rx Instructions .ROUTE .COMPLEX Qty: 90 1RF Dose Instruction: TAKE 1 TABLET DAILY Rx Instructions: TAKE 1 TABLET DAILY zolpidem [Ambien] 5 mg tablet 5 mg PO BEDTIME PRN (Reason: Insomnia) Qty: 16 2RF hydrocodone-acetaminophen 7.5-325 mg tablet 1 tab PO QID PRN (Reason: Severe Pain) Qty: 120 0RF ondansetron HCl 4 mg tablet 4 mg PO Q6HR PRN (Reason: Nausea / Vomiting) Qty: 9 0RF pantoprazole [Protonix] 40 mg tablet,delayed release (DR/EC) 40 mg PO QDAY Qty: 90 1RF polyethylene glycol 3350 [Miralax] 17 GM powder in packet 0.5 cap PO QAM potassium chloride 10 mEq tablet,ER particles/crystals 10 meq PO DAILY gabapentin 600 mg tablet 600 mg PO TID metolazone 2.5 mg tablet 2.5 mg PO .3 times week PRN (Reason: fluid) cholecalciferol (vitamin D3) 125 mcg (5,000 unit) capsule 5,000 unit PO DAILY aspirin 81 MG tablet,delayed release (DR/EC) 81 mg PO QPM loratadine 10 MG tablet 10 mg PO QPM allopurinol 100 mg tablet 100 mg PO BID Qty: 180 1RF atorvastatin [Lipitor] 40 mg tablet 40 mg PO QPM Qty: 90 1RF furosemide [Lasix] 40 mg tablet 40 mg PO QAM Qty: 90 1RF levothyroxine [Synthroid] 50 mcg tablet 50 mcg PO QDAC Qty: 90 1RF codeine-guaifenesin 10-100 mg/5 mL liquid 5 ml PO Q6H PRN (Reason: cough) Qty: 120 0RF albuterol sulfate 2.5 mg /3 mL (0.083 %) solution for nebulization 2.5 mg inhalation Q4-6H PRN (Reason: shortness of breath or wheezing) albuterol sulfate [Ventolin HFA] 90 mcg/actuation HFA aerosol inhaler 2 puff inhalation Q6H PRN (Reason: shortness of breath or wheezing) Qty: 18 3RF Discontinued metoprolol tartrate 25 mg tablet 25 mg PO QAM Qty: 90 1RF potassium chloride [Klor-Con M20] 20 mEq tablet,ER particles/crystals 20 meq PO QAM Qty: 90 1RF Did you review [place] NARC[employer]ENT for ALL controlled substances?: Not Applicable Discussed opioids are addictive and Narcan is available by prescription or from pharmacy.: No Condition: Stable Referrals: DUNG GRIFFIN MD [Primary Care Provider] - 08/01/23 10:40 am
== END 2023-07-26 13:15 | disposition home or self-care (01) | DRG 193 ==
LOC: MEDSURG B 11:59 → ED 11:59 → MEDSURG A 11:59 → INTOOBSV 14:32 → OBSVTOIN 14:32 → MEDSURG B 15:05 → UNDODISOB 07-26 13:15
PROVIDERS: ADMIT Hospitalist; ATTEND Physician Assistant
DX: D72.829 Elevated white blood cell count, unspecified; Z20.822 Contact with and (suspected) exposure to COVID-19; Z79.01 Long term (current) use of anticoagulants; J44.9 Chronic obstructive pulmonary disease, unspecified; Z51.81 Encounter for therapeutic drug level monitoring; W19.XXXA Unspecified fall, initial encounter; Z79.899 Other long term (current) drug therapy; S09.90XA Unspecified injury of head, initial encounter; I48.91 Unspecified atrial fibrillation; J18.9 Pneumonia, unspecified organism; J96.01 Acute respiratory failure with hypoxia; I50.9 Heart failure, unspecified; R42 Dizziness and giddiness